=== PATIENT | female | born 1940 | race Caucasian/White ===

== ENCOUNTER 2016-11-02 12:38 | Outpatient (CLI) | payer OTHER ==
--- NOTE | 2016-11-04 07:29 | MAMMO ---
EXAM: Digital screening mammogram HISTORY: Screening mammogram COMPARISON: Mammogram 10/29/2015 and 10/04/2014 FINDINGS: Bilateral CC and MLO views of the breasts were performed digitally and demonstrate fatty breast density (up to 25%). There is no abnormal nodule or calcification. There is no significant i nterval change. IMPRESSION: No new or suspicious nodule or calcification RECOMMENDATION: Annual screening mammogram BIRADS category 1: Negative
== END 2016-11-02 12:39 | disposition home or self-care (01) ==
LOC: RAD 12:38
PROVIDERS: ATTEND Family Medicine
DX: Z12.31 Encounter for screening mammogram for malignant neoplasm of breast (principal)

== ENCOUNTER 2017-10-27 10:51 | Outpatient (CLI) | payer OTHER ==
--- NOTE | 2017-10-27 11:21 | DI ---
EXAM: Two views of the chest. History: Chest pain, bronchiectasis. Comparison: Chest radiograph 06/07/2009 Findings: Heart is enlarged. Prominent contour of the ascending aorta. Bilateral interstitial thic kening much more noticeable compared to the prior study and most noticeable in the right upper lung. No appreciable pleural fluid and no pneumothorax. Atherosclerotic vascular calcifications. No acut e osseous abnormalities. Impression: 1. Bilateral interstitial thickening much more noticeable compared to the prior study could represen t edema, interstitial pneumonitis or fibrosis. Recommend further evaluation with high-resolution ches t CT. 2. Cardiomegaly.
== END 2017-10-27 10:52 | disposition home or self-care (01) ==
LOC: RAD 10:51
PROVIDERS: ATTEND Family Medicine
DX: E03.9 Hypothyroidism, unspecified (principal); E78.2 Mixed hyperlipidemia; E53.8 Deficiency of other specified B group vitamins; J32.1 Chronic frontal sinusitis; K21.9 Gastro-esophageal reflux disease without esophagitis; J47.9 Bronchiectasis, uncomplicated; J30.9 Allergic rhinitis, unspecified; R03.0 Elevated blood-pressure reading, without diagnosis of hypertension

== ENCOUNTER 2017-10-28 09:56 | Outpatient (CLI) | payer OTHER ==
--- NOTE | 2017-10-28 11:28 | CT ---
Exam: CT chest without intravenous contrast. Comparison: CT PE protocol performed 05/11/2008. Chest x-ray performed 10/27/2017. Reason for exam: Respiratory failure. FINDINGS: Image interpretation is limited by the lack of intravenous contrast administration. Parenchymal changes are seen consistent with chronic lung disease. There is airway thickening with b ronchiectasis and patchy airspace opacities seen throughout both lungs. 8 mm nodule is seen in the left lower lobe that was not seen on the previous exam. There are prominent appearing mediastinal lymph nodes measuring up to 1.8 x 1.1 cm. No suspicious cherelle earing osteoblastic or osteolytic lesions. The heart is prominent in size. The aorta appears normal in course and caliber with atherosclerotic disease. The gallbladder has been removed. Impression: 1. Parenchymal changes consistent with chronic lung disease with patchy airspace opacities bilaterall y likely atelectasis/pneumonia. 2. Bronchiectasis with airway thickening likely representing airway infection. 3. 8 mm nodule in the left lower lobe was not seen on the previous exam. This finding is likely inf lammatory/infectious although neoplasia cannot be ruled out. 3-month follow-up is recommended to doc ument resolution/stability. 4. Prominent appearing mediastinal lymph nodes are likely reactive. Follow-up imaging is recommende d to document resolution.
== END 2017-10-28 09:57 | disposition home or self-care (01) ==
LOC: RAD 09:56
PROVIDERS: ATTEND Family Medicine
DX: J96.00 Acute respiratory failure, unspecified whether with hypoxia or hypercapnia (principal); R93.8 Abnormal findings on diagnostic imaging of other specified body structures

== ENCOUNTER 2017-11-02 11:55 | Inpatient (IN) | payer OTHER ==
[2017-11-02] MEDS ORDERED: PHENERGAN WITH CODEINE 6.25/10 MG/5 ML PO PRN (12:25)
[2017-11-02] MEDS ORDERED: VISTARIL INJ IM PRN (12:25)
[2017-11-02] MEDS ORDERED: MORPHINE 4 MG/ML VIAL IVP PRN (12:25)
[2017-11-02] MEDS ORDERED: NITROSTAT SL PRN (12:25)
[2017-11-02] MEDS ORDERED: ATROPINE SULFATE PFS IVP PRN (12:25)
[2017-11-02 12:39] VITALS: BMI 36.5
--- NOTE | 2017-11-02 13:29 | DI ---
EXAM: Chest two view, frontal and lateral views. HISTORY: Cough. COMPARISON: 10/28/2017. FINDINGS: Heart is enlarged. Peribronchial thickening noted with increased interstitial markings in both lungs. Mild right upper lung and left basilar consolidation could be present. No pleural effu royer or pneumothorax identified. No acute osseous abnormalities seen. Clips noted in the upper abdo men. IMPRESSION: Stable chronic interstitial changes with possible superimposed pneumonia.
[2017-11-02] MEDS: SOLU-CORTEF 250 MG IVP SCH ×2 (13:52→21:25)
[2017-11-02] MEDS: ZITHROMAX PO SCH (13:52)
[2017-11-02] MEDS: ROCEPHIN 1 GM in SODIUM CHLORIDE 50 ML IV SCH (13:52)
[2017-11-02] MEDS: TESSALON PERLES PO SCH ×3 (13:52→20:25)
[2017-11-02] MEDS: XOPENEX 1.25 MG NEB SCH ×2 (17:00→23:25)
[2017-11-02] MEDS: PULMICORT 0.5 MG/2 ML NEB SCH (17:00)
[2017-11-02] MEDS: REGLAN PO SCH (20:24)
[2017-11-02] MEDS: TENORMIN PO SCH (20:26)
[2017-11-02] MEDS ORDERED: TENORMIN PO SCH (21:00)
[2017-11-03] MEDS: SOLU-CORTEF 250 MG IVP SCH ×3 (04:58→20:36)
[2017-11-03] MEDS: PULMICORT 0.5 MG/2 ML NEB SCH ×2 (05:45→16:56)
[2017-11-03] MEDS: XOPENEX 1.25 MG NEB SCH ×4 (05:45→22:46)
[2017-11-03] MEDS: SYNTHROID PO SCH (06:13)
[2017-11-03] MEDS ORDERED: ASPIRIN EC PO SCH (08:00)
[2017-11-03] MEDS: TESSALON PERLES PO SCH ×3 (08:32→20:36)
[2017-11-03] MEDS: ROCEPHIN 1 GM in SODIUM CHLORIDE 50 ML IV SCH (08:32)
[2017-11-03] MEDS: ZITHROMAX PO SCH (08:32)
[2017-11-03] MEDS: LIPITOR PO SCH (08:32)
[2017-11-03] MEDS: TENORMIN PO SCH ×2 (08:32→20:36)
[2017-11-03] MEDS: CELEXA PO SCH (08:32)
[2017-11-03] MEDS: SINGULAIR PO SCH (08:32)
[2017-11-03] MEDS: ASPIRIN EC PO SCH (08:33)
[2017-11-03] MEDS ORDERED: NON-FORMULARY MEDICATION (Citalopram Hydrobromide [Celexa] 20 MG) PO SCH (09:00)
[2017-11-03] MEDS ORDERED: NON-FORMULARY MEDICATION (Levothyroxine Sodium [Tirosint] 75 MCG) PO SCH (09:00)
--- NOTE | 2017-11-03 09:33 | PCM.PROG ---
Attending Provider: ATTENDING PROVIDER: Dr. JACQUIE WRAY DATE OF SERVICE: 11/03/17 SUBJECTIVE: This 76 year old WHITE/ F was hospitalized 11/02/17 with pneumonia. The patient's cough is somewhat better. She is afebrile. Appetite normal. REVIEW OF SYSTEMS: CONSTITUTIONAL: No night sweats. No fatigue, malaise, lethargy. No fever or chills. HEENT: Eyes: No visual changes. No eye pain. No eye discharge. ENT: No runny nose. No epistaxis. No sinus pain. No odynophagia. No congestion. RESPIRATORY: Mild cough and congestion. No hemoptysis. No shortness of breath. CARDIOVASCULAR: No angina symptoms. No CHF symptoms. No atypical chest pain for CAD. No palpitations. No orthopnea.. GASTROINTESTINAL: No abdominal pain. No nausea or vomiting. No diarrhea or constipation. No hematemesis. No hematochezia. GENITOURINARY: No urgency. No frequency. No dysuria. No hematuria. No obstructive symptoms. No discharge. No pain. No significant abnormal bleeding. MUSCULOSKELETAL: No musculoskeletal pain; no joint swelling. NEUROLOGICAL: Awake, alert, oriented to time, place and person. No headache. No neck pain. No syncope. No seizures. No dizziness. PSYCHIATRIC: Not anxious. No depression. No suicidal thoughts. No homicidal thoughts. SKIN: No rash. No lesions. No wounds. ENDOCRINE: No unexplained weight loss. No weight gain. HEMATOLOGIC/LYMPHATIC: No anemia. No purpura. No petechiae. No prolonged or excessive bleeding. No palpable lymph nodes. PHYSICAL EXAMINATION: GENERAL: The patient is awake, alert and oriented, sitting in the chair in no distress. VITAL SIGNS: Temperature 97.7 F, Pulse 66, Respiratory Rate 16, BP 128/70, Pulse Ox 97% HEENT: Head normocephalic, atraumatic. Eyes: Extraocular muscles are intact. Pupils are equal, round and reactive to light and accommodation. Ears: No lesions. Nose appeared normal. Throat: No exudate or erythema. NECK: Supple. No JVD, no carotid bruit. No lymphadenopathy or thyromegaly. LUNGS: Dry creps both bases, good air entry. Percussion note normal. Chest symmetrical. HEART: S1, S2, no S3. No murmurs. No cyanosis or clubbing. No ascites. Pulses: Dorsalis pedis and posterior tibial pulses +1 to +2 both sides. ABDOMEN: Soft. Non-tender. Bowel sounds active. No CVA tenderness. No mass felt. EXTREMITIES: No edema. Full range of motion of all extremities, equal. NEUROLOGIC: No focal deficit. Cranial nerves II through XII are grossly intact. No headache, no double vision or headache. SKIN: Warm and dry. Intact. Turgor-normal. LYMPHATIC: No palpable lymph nodes/no lymphedema. MUSCULOSKELETAL: Normal joints with no swelling. Muscle tone is normal. LAB REVIEW: 11/03/17 04:30 11/03/17 04:30 11/03/17 04:30: Sodium 140, Potassium 4.2, Chloride 104, Carbon Dioxide 26, Anion Gap 14.2, BUN 11, Creatinine 0.78, Estimated GFR (MDRD) 72.00, BUN/ Creatinine Ratio 14.10, Glucose 135 H, Calcium 9.3, Total Bilirubin 0.4, AST 8 L , ALT 9 L, Alkaline Phosphatase 132, Total Protein 6.8, Albumin 3.1 L, Globulin 3.7, Albumin/Globulin Ratio 0.84 11/03/17 04:30: WBC 12.23 H, RBC 4.22, Hgb 12.8, Hct 38.8, MCV 91.9, MCH 30.3, MCHC 33.0, RDW Coeff of Karina 12.9, Plt Count 175, Immature Gran % (Auto) 0.6, Neut % (Auto) 87.3, Lymph % (Auto) 8.7 L, [place] % (Auto) 2.3, Eos % (Auto) 0.7, Baso % (Auto) 0.4, Immature Gran # (Auto) 0.1, Neut # (Auto) 10.7 H, Lymph # ( Auto) 1.1, [place] # (Auto) 0.3 L, Eos # (Auto) 0.1, Baso # (Auto) 0.1 11/02/17 20:19: Total Creatine Kinase 60, Troponin I < 0.0100 11/02/17 18:45: Urine Color Yellow, Urine Clarity Clear, Urine pH 6.0, Ur Specific [place] 1.010, Urine Protein Negative, Urine Glucose (UA) Negative, Urine Ketones Trace, Urine Blood Trace-intact, Urine Nitrite Negative, Urine Bilirubin Negative, Urine Urobilinogen 0.2, Ur Leukocyte Esterase Negative, Urine Microscopic RBC 0-2, Ur Squamous Epith Cells 2-5, Ur Renal Epithelial Cell 0-2 11/02/17 12:45: Sodium 138, Potassium 3.9, Chloride 103, Carbon Dioxide 25, Anion Gap 13.9, BUN 8, Creatinine 0.81, Estimated GFR (MDRD) 69.00, BUN/ Creatinine Ratio 9.87, Glucose 98, Calcium 9.5, Total Bilirubin 0.4, AST 10 L, ALT 11 L, Alkaline Phosphatase 144 H, Total Creatine Kinase 68, Troponin I < 0.0100, Total Protein 7.3, Albumin 3.4, Globulin 3.9, Albumin/Globulin Ratio 0.87, TSH 1.486, Free T4 1.14 11/02/17 12:45: WBC 15.64 H, RBC 4.44, Hgb 13.7, Hct 40.8, MCV 91.9, MCH 30.9, MCHC 33.6, RDW Coeff of Karina 12.9, Plt Count 174, Immature Gran % (Auto) 0.5, Neut % (Auto) 59.8, Lymph % (Auto) 8.0 L, [place] % (Auto) 5.1, Eos % (Auto) 26.0 H , Baso % (Auto) 0.6, Immature Gran # (Auto) 0.1, Neut # (Auto) 9.4 H, Lymph # ( Auto) 1.3, [place] # (Auto) 0.8, Eos # (Auto) 4.1 H, Baso # (Auto) 0.1 11/02/17 12:45: B-Natriuretic Peptide 35 11/02/17 12:25: Puncture Site Lrad, O2 Saturation 91.0 L, ABG pH 7.420, ABG pCO2 44.2, ABG pO2 61.0 L, ABG HCO3 28.7 H, ABG Total CO2 30 H, ABG Base Excess 4 H, Pj Test +, FiO2 % 21.0 ASSESSMENT: 1. Bilateral patchy pneumonia/bronchiectasis 2. Chronic lung disease 3. Hypertension PLAN: 1. Continue antibiotic Rocephin, Zithromax, steroids and nebs 2. Literature for plantar fascitis given 3. Hypothyroidism Plan and coordination of the patient's care discussed in the presence of Assistant Federal Public Defender and nurse. CONDITION: Stable SCRIBED BY: DANISHA GREEN Cream Ripener scribed while in presence of service performed by Dr. JACQUIE WRAY on 11/03/17 ([id number])
[2017-11-03] MEDS: ATIVAN PO PRN (19:07)
[2017-11-03] MEDS: REGLAN PO SCH (20:36)
[2017-11-04] MEDS: PULMICORT 0.5 MG/2 ML NEB SCH ×2 (04:48→17:19)
[2017-11-04] MEDS: XOPENEX 1.25 MG NEB SCH ×4 (04:48→22:07)
[2017-11-04] MEDS: SOLU-CORTEF 250 MG IVP SCH ×2 (05:06→20:50)
[2017-11-04] MEDS: SYNTHROID PO SCH (05:38)
[2017-11-04] MEDS: ZITHROMAX PO SCH (09:12)
[2017-11-04] MEDS: ROCEPHIN 1 GM in SODIUM CHLORIDE 50 ML IV SCH (09:12)
[2017-11-04] MEDS: TESSALON PERLES PO SCH ×3 (09:12→20:52)
[2017-11-04] MEDS: LIPITOR PO SCH (09:13)
[2017-11-04] MEDS: CELEXA PO SCH (09:13)
[2017-11-04] MEDS: SINGULAIR PO SCH (09:13)
[2017-11-04] MEDS: ASPIRIN EC PO SCH (09:13)
[2017-11-04] MEDS: TENORMIN PO SCH ×2 (09:13→20:53)
--- NOTE | 2017-11-04 09:34 | PCM.PROG ---
Attending Provider: ATTENDING PROVIDER: Dr. JACQUIE WRAY This patient is seen with Lia Da Silva, Nurse Practitioner. DATE OF SERVICE: 11/04/17 SUBJECTIVE: This 76 year old WHITE/ F was hospitalized 11/02/17. The patient is sitting up in chair, alert. She still does not have much appetite. She is still wearing 02. Shortness of breath with exertion. Will attempt to decrease steroids today. She does not normally wear 02. REVIEW OF SYSTEMS: CONSTITUTIONAL: Positive for weakness. No night sweats. No malaise, lethargy. No fever or chills. HEENT: Eyes: No visual changes. No eye pain. No eye discharge. ENT: No runny nose. No epistaxis. No sinus pain. No odynophagia. No congestion. RESPIRATORY: Cough. No hemoptysis. No shortness of breath. CARDIOVASCULAR: No angina symptoms. No CHF symptoms. No atypical chest pain for CAD. No palpitations. No orthopnea.. GASTROINTESTINAL: No abdominal pain. No nausea or vomiting. No diarrhea or constipation. No hematemesis. No hematochezia. GENITOURINARY: No urgency. No frequency. No dysuria. No hematuria. No obstructive symptoms. No discharge. No pain. No significant abnormal bleeding. MUSCULOSKELETAL: No musculoskeletal pain; no joint swelling. NEUROLOGICAL: Awake, alert, oriented to time, place and person. No headache. No neck pain. No syncope. No seizures. No dizziness. PSYCHIATRIC: Not anxious. No depression. No suicidal thoughts. No homicidal thoughts. SKIN: No rash. No lesions. No wounds. ENDOCRINE: No unexplained weight loss. No weight gain. HEMATOLOGIC/LYMPHATIC: No anemia. No purpura. No petechiae. No prolonged or excessive bleeding. No palpable lymph nodes. PHYSICAL EXAMINATION: GENERAL: The patient is awake, alert and oriented, sitting in chair in no distress. VITAL SIGNS: Temperature 98.2 F, Pulse 74, Respiratory Rate 20, BP 121/77, Pulse Ox 96% HEENT: Head normocephalic, atraumatic. Eyes: Extraocular muscles are intact. Pupils are equal, round and reactive to light and accommodation. Ears: No lesions. Nose appeared normal. Throat: No exudate or erythema. NECK: Supple. No JVD, no carotid bruit. No lymphadenopathy or thyromegaly. LUNGS: Diminished breath sounds bilaterally with creps in the bilateral bases. Percussion note normal. Chest symmetrical. HEART: S1, S2, no S3. No murmurs. No cyanosis or clubbing. No ascites. Pulses: Dorsalis pedis and posterior tibial pulses +1 to +2 both sides. ABDOMEN: Soft. Non-tender. Bowel sounds active. No CVA tenderness. No mass felt. EXTREMITIES: No edema. Full range of motion of all extremities, equal. NEUROLOGIC: No focal deficit. Cranial nerves II through XII are grossly intact. No headache, no double vision or headache. SKIN: Not dry. Intact. Turgor-normal. LYMPHATIC: No palpable lymph nodes/no lymphedema. MUSCULOSKELETAL: Normal joints with no swelling. Muscle tone is normal. LAB REVIEW: 11/04/17 04:30 11/04/17 04:30 11/04/17 04:30: WBC 15.55 H, RBC 4.59, Hgb 13.9, Hct 42.4, MCV 92.4, MCH 30.3, MCHC 32.8, RDW Coeff of Karina 12.8, Plt Count 231 D, Immature Gran % (Auto) 0.5, Neut % (Auto) 86.7, Lymph % (Auto) 9.6 L, [place] % (Auto) 2.9, Eos % (Auto) 0.1, Baso % (Auto) 0.2, Immature Gran # (Auto) 0.1, Neut # (Auto) 13.5 H, Lymph # ( Auto) 1.5, [place] # (Auto) 0.5, Eos # (Auto) 0.0, Baso # (Auto) 0.0 11/04/17 04:30: Sodium 140, Potassium 3.8, Chloride 101, Carbon Dioxide 24, Anion Gap 18.8, BUN 13, Creatinine 0.91, Estimated GFR (MDRD) 60.00, BUN/ Creatinine Ratio 14.28, Glucose 123 H, Calcium 9.9, Total Bilirubin 0.3, AST 9 L , ALT 12, Alkaline Phosphatase 134, Total Protein 7.5, Albumin 3.4, Globulin 4.1 , Albumin/Globulin Ratio 0.83 ASSESSMENT: 1. Bilateral patchy pneumonia/bronchiectasis 2. Chronic lung disease 3. Hypertension PLAN: 1. Decrease Solu-Cortef q.12hr 2. Echocardiogram Plan and coordination of the patient's care discussed in the presence of Molecular Biology Scientist and nurse. CONDITION: Stable SCRIBED BY: DANISHA GREEN Seed Cleaner scribed while in presence of service performed by Dr. Wray/Lia Da Silva APRN on 11/04/17 ([id number])
[2017-11-04] MEDS: REGLAN PO SCH (20:53)
[2017-11-05] MEDS: XOPENEX 1.25 MG NEB SCH ×4 (04:46→23:35)
[2017-11-05] MEDS: PULMICORT 0.5 MG/2 ML NEB SCH ×2 (04:46→18:18)
[2017-11-05] MEDS: PRILOSEC PO SCH (06:07)
[2017-11-05] MEDS: SYNTHROID PO SCH (06:07)
[2017-11-05] MEDS: ASPIRIN EC PO SCH (08:47)
[2017-11-05] MEDS: ROCEPHIN 1 GM in SODIUM CHLORIDE 50 ML IV SCH (08:47)
[2017-11-05] MEDS: SINGULAIR PO SCH (08:47)
[2017-11-05] MEDS: LIPITOR PO SCH (08:47)
[2017-11-05] MEDS: TENORMIN PO SCH ×2 (08:47→20:30)
[2017-11-05] MEDS: TESSALON PERLES PO SCH ×3 (08:47→20:30)
[2017-11-05] MEDS: CELEXA PO SCH (08:47)
[2017-11-05] MEDS: SOLU-CORTEF 250 MG IVP SCH (08:48)
--- NOTE | 2017-11-05 14:05 | DI ---
EXAM: Chest two view, frontal and lateral views. HISTORY: Cough. Possible pneumonia. Abnormal chest radiograph follow-up. COMPARISON: 11/02/2017, 10/28/2017. FINDINGS: Heart is enlarged. There is no vascular congestion. Increased interstitial markings seen throughout both lungs with peribronchial thickening. The colon send opacities in the right upper an d left lower lungs again noted. No pleural effusion or pneumothorax identified. Degenerative change s in the spine. Clips noted in the abdomen. IMPRESSION: Stable appearance of the chest most likely representing interstitial fibrosis..
[2017-11-05] MEDS: ATIVAN PO PRN (19:44)
[2017-11-05] MEDS: REGLAN PO SCH (20:30)
[2017-11-06] MEDS: PULMICORT 0.5 MG/2 ML NEB SCH ×2 (04:55→17:00)
[2017-11-06] MEDS: XOPENEX 1.25 MG NEB SCH ×4 (04:55→23:44)
[2017-11-06] MEDS: PRILOSEC PO SCH (05:37)
[2017-11-06] MEDS: SYNTHROID PO SCH (05:38)
[2017-11-06] MEDS: SINGULAIR PO SCH (08:12)
[2017-11-06] MEDS: LIPITOR PO SCH (08:12)
[2017-11-06] MEDS: ASPIRIN EC PO SCH (08:12)
[2017-11-06] MEDS: PREDNISONE PO SCH (08:12)
[2017-11-06] MEDS: TENORMIN PO SCH ×2 (08:12→20:19)
[2017-11-06] MEDS: TESSALON PERLES PO SCH ×3 (08:13→20:20)
[2017-11-06] MEDS: CELEXA PO SCH (08:13)
[2017-11-06] MEDS: ROCEPHIN 1 GM in SODIUM CHLORIDE 50 ML IV SCH (08:13)
[2017-11-06] MEDS: TYLENOL PO PRN (20:20)
[2017-11-06] MEDS: REGLAN PO SCH (20:20)
[2017-11-06] MEDS: ATIVAN PO PRN (20:20)
[2017-11-07] MEDS: PULMICORT 0.5 MG/2 ML NEB SCH ×2 (05:00→16:50)
[2017-11-07] MEDS: XOPENEX 1.25 MG NEB SCH ×4 (05:00→23:50)
[2017-11-07] MEDS: SYNTHROID PO SCH (05:46)
[2017-11-07] MEDS: PRILOSEC PO SCH (05:46)
[2017-11-07] MEDS: TENORMIN PO SCH ×2 (08:22→20:27)
[2017-11-07] MEDS: LIPITOR PO SCH (08:22)
[2017-11-07] MEDS: SINGULAIR PO SCH (08:22)
[2017-11-07] MEDS: TESSALON PERLES PO SCH ×3 (08:22→20:28)
[2017-11-07] MEDS: CELEXA PO SCH (08:22)
[2017-11-07] MEDS: ASPIRIN EC PO SCH (08:22)
[2017-11-07] MEDS: PREDNISONE PO SCH (08:22)
[2017-11-07] MEDS: ROCEPHIN 1 GM in SODIUM CHLORIDE 50 ML IV SCH (08:22)
[2017-11-07] MEDS: TYLENOL PO PRN ×2 (09:51→20:28)
[2017-11-07] MEDS: REGLAN PO SCH (20:27)
[2017-11-07] MEDS: OMNICEF PO SCH (20:28)
[2017-11-07] MEDS: ATIVAN PO PRN (20:28)
[2017-11-08] MEDS: PULMICORT 0.5 MG/2 ML NEB SCH ×2 (05:20→16:54)
[2017-11-08] MEDS: XOPENEX 1.25 MG NEB SCH ×4 (05:20→23:45)
[2017-11-08] MEDS: SYNTHROID PO SCH (05:49)
[2017-11-08] MEDS: PRILOSEC PO SCH (05:49)
[2017-11-08] MEDS: OMNICEF PO SCH ×2 (08:56→20:47)
[2017-11-08] MEDS: TESSALON PERLES PO SCH ×3 (08:56→20:47)
[2017-11-08] MEDS: SINGULAIR PO SCH (08:57)
[2017-11-08] MEDS: TENORMIN PO SCH ×2 (08:57→20:47)
[2017-11-08] MEDS: CELEXA PO SCH (08:57)
[2017-11-08] MEDS: LIPITOR PO SCH (08:57)
[2017-11-08] MEDS: ASPIRIN EC PO SCH (08:57)
[2017-11-08] MEDS: PREDNISONE PO SCH (08:57)
[2017-11-08] MEDS: TYLENOL PO PRN (15:26)
[2017-11-08] MEDS: REGLAN PO SCH (20:47)
[2017-11-08] MEDS: ATIVAN PO PRN (21:08)
[2017-11-09] MEDS: PULMICORT 0.5 MG/2 ML NEB SCH (05:05)
[2017-11-09] MEDS: XOPENEX 1.25 MG NEB SCH ×2 (05:05→11:14)
[2017-11-09] MEDS: PRILOSEC PO SCH (05:36)
[2017-11-09] MEDS: SYNTHROID PO SCH (05:36)
[2017-11-09] MEDS: ASPIRIN EC PO SCH (08:42)
[2017-11-09] MEDS: LIPITOR PO SCH (08:42)
[2017-11-09] MEDS: TENORMIN PO SCH (08:42)
[2017-11-09] MEDS: CELEXA PO SCH (08:42)
[2017-11-09] MEDS: TESSALON PERLES PO SCH (08:43)
[2017-11-09] MEDS: OMNICEF PO SCH (08:43)
[2017-11-09] MEDS: PREDNISONE PO SCH (08:43)
[2017-11-09] MEDS: SINGULAIR PO SCH (08:43)
--- NOTE | 2017-11-09 09:57 | PCM.PROG ---
Attending Provider: ATTENDING PROVIDER: Dr. JACQUIE WRAY This patient is seen with Lia Da Silva, Nurse Practitioner. DATE OF SERVICE: 11/09/17 SUBJECTIVE: This 76 year old WHITE/ F was hospitalized 11/02/17. The patient is sitting in chair, alert. She has been up walking. without shortness of breath. She passed three step 02 test yesterday. She is eating well and is ready to go home. REVIEW OF SYSTEMS: CONSTITUTIONAL: No night sweats. No fatigue, malaise, lethargy. No fever or chills. HEENT: Eyes: No visual changes. No eye pain. No eye discharge. ENT: No runny nose. No epistaxis. No sinus pain. No odynophagia. No congestion. RESPIRATORY: Improving cough and congestion. No hemoptysis. No shortness of breath. CARDIOVASCULAR: No angina symptoms. No CHF symptoms. No atypical chest pain for CAD. No palpitations. No orthopnea.. GASTROINTESTINAL: No abdominal pain. No nausea or vomiting. No diarrhea or constipation. No hematemesis. No hematochezia. GENITOURINARY: No urgency. No frequency. No dysuria. No hematuria. No obstructive symptoms. No discharge. No pain. No significant abnormal bleeding. MUSCULOSKELETAL: No musculoskeletal pain; no joint swelling. NEUROLOGICAL: Awake, alert, oriented to time, place and person. No headache. No neck pain. No syncope. No seizures. No dizziness. PSYCHIATRIC: Not anxious. No depression. No suicidal thoughts. No homicidal thoughts. SKIN: No rash. No lesions. No wounds. ENDOCRINE: No unexplained weight loss. No weight gain. HEMATOLOGIC/LYMPHATIC: No anemia. No purpura. No petechiae. No prolonged or excessive bleeding. No palpable lymph nodes. PHYSICAL EXAMINATION: GENERAL: The patient is awake, alert and oriented, lying/sitting in bed in no distress. VITAL SIGNS: Temperature 98.1 F, Pulse 75, Respiratory Rate 20, BP 125/74, Pulse Ox 94% HEENT: Head normocephalic, atraumatic. Eyes: Extraocular muscles are intact. Pupils are equal, round and reactive to light and accommodation. Ears: No lesions. Nose appeared normal. Throat: No exudate or erythema. NECK: Supple. No JVD, no carotid bruit. No lymphadenopathy or thyromegaly. LUNGS: Diminished breath sounds bilaterally. Clear to auscultation. Percussion note normal. Chest symmetrical. HEART: S1, S2, no S3. No murmurs. No cyanosis or clubbing. No ascites. Pulses: Dorsalis pedis and posterior tibial pulses +1 to +2 both sides. ABDOMEN: Soft. Non-tender. Bowel sounds active. No CVA tenderness. No mass felt. EXTREMITIES: No edema. Full range of motion of all extremities, equal. NEUROLOGIC: No focal deficit. Cranial nerves II through XII are grossly intact. No headache, no double vision or headache. SKIN: Not dry. Intact. Turgor-normal. LYMPHATIC: No palpable lymph nodes/no lymphedema. MUSCULOSKELETAL: Normal joints with no swelling. Muscle tone is normal. LAB REVIEW: 11/09/17 04:10 11/09/17 04:10 11/09/17 04:10: Sodium 140, Potassium 3.7, Chloride 99, Carbon Dioxide 31, Anion Gap 13.7, BUN 12, Creatinine 0.83, Estimated GFR (MDRD) 67.00, BUN/ Creatinine Ratio 14.45, Glucose 89, Calcium 9.7, Total Bilirubin 0.8, AST 12 L, ALT 14, Alkaline Phosphatase 127, Total Protein 7.3, Albumin 3.4, Globulin 3.9, Albumin/Globulin Ratio 0.87 11/09/17 04:10: WBC 9.75, RBC 4.55, Hgb 13.7, Hct 42.1, MCV 92.5, MCH 30.1, MCHC 32.5, RDW Coeff of Karina 12.6, Plt Count 214, Immature Gran % (Auto) 0.3, Neut % (Auto) 68.4, Lymph % (Auto) 22.4, [place] % (Auto) 6.2, Eos % (Auto) 2.4, Baso % (Auto) 0.3, Immature Gran # (Auto) 0.0, Neut # (Auto) 6.7, Lymph # (Auto ) 2.2, [place] # (Auto) 0.6, Eos # (Auto) 0.2, Baso # (Auto) 0.0 11/08/17 04:10: Triglycerides 70, Cholesterol 183, LDL Cholesterol, Calc 111, VLDL Cholesterol 14, HDL Cholesterol 58, Cholesterol/HDL Ratio 3.2 L ASSESSMENT: 1. Bilateral patchy pneumonia/bronchiectasis 2. Chronic lung disease 3. Hypertension PLAN: 1. Tessalon Perles 200 mg t.i.d. 2. Discharge home 3. To be seen in Dr. Wray's office next week for followup 4. Omnicef 300 mg b.i.d. for 7 days 5. Prednisone 20 mg daily for 3 days then 10 mg daily for four days Plan and coordination of the patient's care discussed in the presence of Bulk Sausage Casing Tier Off and nurse. CONDITION: Stable SCRIBED BY: Dimas RAM scribed while in presence of service performed by Dr. Wray/Lia Da Silva APRN on 11/09/17 ([id number])
[2017-11-09 10:32] VITALS: BP 111/70; TEMP 98.3
--- NOTE | 2017-11-09 11:32 | CM.DICTOOL ---
ADMISSION: 11/02/17 11:55 DISCHARGE: NOVEMBER 09, 2017 DATE OF SERVICE: 11/09/17 FINAL DIAGNOSIS BILATERAL PATCHY PNEUMONITIS (PER CT 10/28/) ACUTE BRONCHITIS NODULE, LLL [address] BRONCHIECTASIS COPD HYPERTENSION HYPOTHYROID DYSLIPIDEMIA GERD OBESITY DEPRESSION CHOLECYSTECTOMY HYSTERECTOMY BILE DUCT SURGERY LAST VITALS Temp Pulse Resp BP Pulse Ox 98.1 F 75 20 125/74 94 L 11/09/17 05:15 11/09/17 05:15 11/09/17 05:15 11/09/17 05:15 11/09/17 05:15 TAKE THESE MEDICATIONS Aspirin (Aspirin Ec) 81 mg PO DAILYWM [facility] Last Admin: 11/09/17 08:42 Dose: 81 mg Atenolol (Tenormin) 25 mg PO BID [facility] Last Admin: 11/09/17 08:42 Dose: 25 mg Atorvastatin Calcium (Lipitor) 10 mg PO DAILY [facility] Last Admin: 11/09/17 08:42 Dose: 10 mg Benzonatate (Tessalon Perles) 200 mg PO TID [facility] Last Admin: 11/09/17 08:43 Dose: 200 mg Cefdinir (Omnicef) 300 mg PO Q12HR [facility] Last Admin: 11/09/17 08:43 Dose: 300 mg Citalopram Hydrobromide (Celexa) 20 mg PO DAILY [facility] Last Admin: 11/09/17 08:42 Dose: 20 mg Levothyroxine Sodium (Synthroid) 75 mcg PO QDAC [facility] Last Admin: 11/09/17 05:36 Dose: 75 mcg Lorazepam (Ativan) 1 mg PO TID PRN PRN Reason: Anxiety Last Admin: 11/08/17 21:08 Dose: 1 mg Metoclopramide HCl (Reglan) 10 mg PO BEDTIME [facility] Last Admin: 11/08/17 20:47 Dose: 10 mg Montelukast Sodium (Singulair) 10 mg PO DAILY [facility] Last Admin: 11/09/17 08:43 Dose: 10 mg Omeprazole (Prilosec) 20 mg PO QDAC [facility] Last Admin: 11/09/17 05:36 Dose: 20 mg Prednisone (Prednisone) 20 mg PO DAILYWM [facility] Last Admin: 11/09/17 08:43 Dose: 20 mg Vitamin B Complex 1 tab PO DAILY Last Admin: MEDICATION CHANGES Stop Phenergan tablets ALLERGIES No Known Allergies Allergy (Unverified 11/21/14 14:29) NEW PRESCRIPTIONS: OMNICEF 300 MG Q 12 HOURS FOR 7 DAYS PREDNISONE 20 MG DAILY FOR 3 DAYS, THEN 10 MG DAILY FOR 4 DAYS TESSALON PERLES 200 MG TID SMOKING: NOT APPLICABLE DISEASE SPECIFIC EDUCATION: PNEUMONIA BRONCHITIS USE OF STEROIDS ACTIVITY APPOINTMENT LAB REVIEW: 11/09/17 04:10 11/09/17 04:10 11/09/17 04:10: Sodium 140, Potassium 3.7, Chloride 99, Carbon Dioxide 31, Anion Gap 13.7, BUN 12, Creatinine 0.83, Estimated GFR (MDRD) 67.00, BUN/ Creatinine Ratio 14.45, Glucose 89, Calcium 9.7, Total Bilirubin 0.8, AST 12 L, ALT 14, Alkaline Phosphatase 127, Total Protein 7.3, Albumin 3.4, Globulin 3.9, Albumin/Globulin Ratio 0.87 11/09/17 04:10: WBC 9.75, RBC 4.55, Hgb 13.7, Hct 42.1, MCV 92.5, MCH 30.1, MCHC 32.5, RDW Coeff of Karina 12.6, Plt Count 214, Immature Gran % (Auto) 0.3, Neut % (Auto) 68.4, Lymph % (Auto) 22.4, [place] % (Auto) 6.2, Eos % (Auto) 2.4, Baso % (Auto) 0.3, Immature Gran # (Auto) 0.0, Neut # (Auto) 6.7, Lymph # (Auto ) 2.2, [place] # (Auto) 0.6, Eos # (Auto) 0.2, Baso # (Auto) 0.0 PLAN: DISCHARGE HOME DIET: HEART HEALTHY ACTIVITY: RESUME TOLERATED AVOID OUTSIDE WORK OR ACTIVITIES THIS WEEK USE NEBULIZER (HAS AT HOME WITH MEDICATIONS) AT LEAST 3 TIMES DAILY UNTIL SEEN IN OFFICE NEXT WEEK AN APPOINTMENT IS SCHEDULED WITH SANA POST APRN ON October AT 9 AM YOU ARE SCHEDULED FOR A MAMMOGRAM ON October AT 9:45 AT [facility]. PLEASE REGISTER AT PATIENT REGISTRATION MRS. PARKER IS ALERT AND ORIENTED X 3. SHE IS AMBULATORY WITHOUT USE OF ASSISTIVE DEVICE. SHE IS INDEPENDENT WITH ACTIVITIES OF DAILY LIVING. NO SHORTNESS OF AIR IS NOTED. COUGH IS NON-PRODUCTIVE. NO ABDOMINAL PAIN OR NAUSEA. MEAL INTAKES GOOD AT 60-100%. SKIN IS INTACT AND FREE OF DECUBITUS ULCERS, RASHES OR IRRITATION. JACQUIE WRAY MD SANA POST APRN
--- NOTE | 2017-11-10 12:40 | PN ---
DATE OF SERVICE: 11/08/17 SUBJECTIVE: 76 year old white female hospitalized with pneumonia. The patient has bronchiectasis. Condition is improving and she says that she is been coughing less. Appetite is better and strength is better. REVIEW OF SYSTEMS: CONSTITUTIONAL: No night sweats. No fatigue, malaise, lethargy. No fever or chills. Improvement in feeling of fatigue. HEENT: Eyes: No visual changes. No eye pain. No eye discharge. ENT: No runny nose. No epistaxis. No sinus pain. No sore throat. No odynophagia. No congestion. RESPIRATORY: Mild cough, no congestion. No hemoptysis. No shortness of breath. CARDIOVASCULAR: No angina symptoms. No CHF symptoms. No atypical chest pain for CAD. No palpitations. No orthopnea. GASTROINTESTINAL: No abdominal pain. No nausea or vomiting. No diarrhea or constipation. No hematemesis. No hematochezia. Improvement in appetites. GENITOURINARY: No urgency. No frequency. No dysuria. No hematuria. No obstructive symptoms. No discharge. No pain. No significant abnormal bleeding. MUSCULOSKELETAL: No musculoskeletal pain; no joint swelling. NEUROLOGICAL: No headache. No neck pain. No syncope. No seizures. No dizziness. PSYCHIATRIC: Not anxious. No depression. No suicidal thoughts. No homicidal thoughts. SKIN: No rash. No lesions. No wounds. ENDOCRINE: No unexplained weight loss. No weight gain. HEMATOLOGIC/LYMPHATIC: No anemia. No purpura. No petechiae. No prolonged or excessive bleeding. No palpable lymph nodes. PHYSICAL EXAMINATION: GENERAL: The patient is oriented to time, place and person VITAL SIGNS: Temperature 98, pulse 65, respiratory rate 16, blood pressure 145/ 80 and pulse ox 97%. HEENT: Head normocephalic, atraumatic. Eyes: Extraocular muscles are intact. Pupils are equal, round and reactive to light and accommodation. Ears: No lesions. Nose appeared normal. Throat: No exudate or erythema. NECK: Supple. No JVD, no carotid bruit. No lymphadenopathy or thyromegaly. LUNGS: Dry Creps bilaterally. Clear to auscultation. Percussion note normal. Chest symmetrical. HEART: S1, S2, no S3. No murmurs. No cyanosis or clubbing. No ascites. Pulses: Dorsalis pedis and posterior tibial pulses +1 to +2 both sides. ABDOMEN: Soft. Nontender. Bowel sounds active. No CVA tenderness. No mass felt. EXTREMITIES: No edema. Full range of motion of all extremities, equal. NEUROLOGIC: No focal deficit. Cranial nerves II through XII are grossly intact. No headache, no double vision or headache. SKIN: Not dry. Intact. Turgor - normal. LYMPHATIC: No palpable lymph nodes/no lymphedema. MUSCULOSKELETAL: Normal joints with no swelling. Muscle tone is normal. LABS: Chest x-ray showed pulmonary fibrosis done two days ago. Echo is waiting. ASSESSMENT: 1. Pneumonia seems to be resolving 2. Bronchiectasis with pulmonary fibrosis 3. Depression 4. Hypothyroidism 5. Dyslipidemia 6. Hypertension PLAN: 1. Continue antibiotics and steroids 2. Breathing treatment CONDITION: Stable. TIME SPENT: More than 30 minutes. Plan and coordination of the patient's care discussed in the presence of nurse. DHAVAL
--- NOTE | 2017-11-10 13:50 | PN ---
DATE OF SERVICE: 11/09/17 SUBJECTIVE: The patient was seen and examined with Nurse Practitioner. The patient's condition is stable. Her breathing capacity seems to have improved. She is coughing much less. Pneumonia by x-ray has resolved. Clinically she is a lot better. The patient will be discharged on antibiotics and steroids. CONDITION: Stable. TIME SPENT: More than 30 minutes. Plan and coordination of the patient's care discussed in the presence of nurse. DHAVAL
--- NOTE | 2017-11-10 13:51 | PN ---
11/02/17: Level 5 11/03/17: Intermediate 11/04/17: Intermediate 11/05/17: Intermediate 11/06/17: Intermediate 11/07/17: Intermediate 11/08/17: Intermediate 11/09/17: D as in discharge MTDD
--- NOTE | 2017-11-11 07:58 | ECHO2D ---
Date of Exam: 11/08/17 Ordering Physician: DR. JACQUIE WRAY Room #: 107 Reason for Echo: CARDIOMEGALY, HYPERTENSION M-Mode Normal Adult Results LV Dimensions Normal Adult Results AoV Opening excursions >1.6 >1.6 LVEDD-base- 3.5-5.8 3.3 Ao root dimensions 2.0-3.7 3.5 LVESD-base- 3.1-4.6 L. Atrium dimensions 1.9-3.8 3.9 Post. Wall thickness 0.8-1.1 1.2 IV septum (thickness) 0.7-1.2 1.3 Post. Wall excursion 0.72-1.3 NORMAL Septal motion NORMAL Systolic motion R. Ventricular cavity 1.5-2.0 NORMAL LVEF 60% 71% Paradoxical septal wall motion NORMAL 2-D : 2-D M Mode Echocardiogram was performed using apical four chamber and left parasternal long and short axis views. Mitral, tricuspid and aortic valves appear to be normal. Contractility of the left ventricle seems to be normal, so is the cavity size. Left atrial cavity size and aortic root appear to be normal. There is no pericardial effusion. There is no thrombus noted in the left ventricular or left aortic cavity. No mitral valve prolapse noted. M-MODE: MV: NORMAL AV: NORMAL TV: NORMAL PV: CHAMBER SIZE: NORMAL WALL MOTION: NORMAL PERICARDIUM: NORMAL INTERPRETATION: 1. BORDERLINE LEFT VENTRICULAR HYPERTROPHY 2. NORMAL LEFT VENTRICULAR CONTRACTILITY 3. NORMAL VALVES MTDD
--- NOTE | 2017-11-11 12:41 | DS ---
DATE OF SERVICE: 11/09/17 FINAL DIAGNOSIS: 1. Bilateral patchy pneumonitis (PER CT 10/28) 2. Acute bronchitis 3. Nodule, LLL 8mm per CT 4. Bronchiectasis 5. COPD 6. Hypertension 7. Hypothyroid 8. Dyslipidemia 9. GERD 10.Obesity 11.Depression 12.Cholecystectomy 13.Hysterectomy 14.Bile Duct surgery LAST VITAL: Temperature 98.1, pulse 75, respiratory rate 20, blood pressure 125/74 and pulse ox 94%. DISCHARGE INSTRUCTIONS: Discharge home. Use Nebulizer(has at home with medication) at least three times daily until seen in office next week. An Appointment is scheduled with Lia Da Silva APRN on November 16 at 9am. Also scheduled for Mammogram on November 18 at 9: 45 at [facility]. Please Pollock at Patient Registration. MEDICATIONS AT DISCHARGE: Aspirin 81mg PO daily Tenormin 25mg PO twice a day Lipitor 10mg PO daily Tessalon Perles 200mg PO three times a day Omnicef 300mg PO Q 12 hours Celexa 20mg PO daily Synthroid 75mcg PO QDAC Ativan 1mg PO three times a day PRN Reglan 10mg PO bedtime Singular 10mg PO daily Prilosec 20mg PO QDAC Prednisone 20mg PO daily Vitamin B Complex 1 tablet PO daily MEDICATION CHANGES: Stop Phenergan tablets ALLERGIES: No known allergies NEW PRESCRIPTIONS: Omnicef 300mg Q 12 hours for 7 days Prednisone 20mg daily for 3 days, Then 10mg daily for 3 days Tessalon Perles 200mg Three times a day DIET INSTRUCTIONS: Heart Healthy ACTIVITY: Resume as tolerated. Avoid outside work or activities this week. SMOKING: Not applicable DISEASE SPECIFIC EDUCATION: Pneumonia Bronchitis Use of steroids Activity Appointments HOSPITAL COURSE: This is a 76 year old white female who is a new/old patient to us. She has been seeing a physician in [place] for the past 5-6 years and had not seen us until the day of admission. She presented to our office had had cough and congestion for several days with low grade fever. She requested that she have a chest x- ray. She had been on a Z-dolly as an outpatient from her previous doctor and he refused to do anything else. She was running fever, she was weak and short of breath. She was admitted. Kidney function was slightly elevated and shows slight dehydration. She was started on Rocephin 1 gram IV daily along with IV normal saline at 75cc an hour. She was started on Xopenex NEB treatment every 6 hours scheduled along with Solu-Cortef 125mg IV Q 6 hours. Over the course of several days she did slowly improve. She required oxygen at 1-2 liters initially in order to keep her Sat greater than 90%. She does have a history of chronic lung disease. She is a nonsmoker but has been exposed to significant second hand smoke from her family as a child as well as her used to smoke and has just quit within the past 10 years. Chest x-ray along with chest CT showed some bilateral opacities representing pneumonia. She had a chest CT initially and a repeat was done on Wednesday which showed some improvement. Again her improvement was slowly likely due to her chronic lung disease. Today on day of discharge she is no longer wheezing. She still some diminished breath sounds especially at the bases. She was started on Omnicef 300mg twice a day yesterday along with Prednisone 20mg PO daily yesterday and has tolerated the transition to PO medication well. She did pass her three step oxygen test yesterday so she will not require any oxygen at home. For the past 24 hours she has been up and about walking around without the use of oxygen. Today on day of discharge O2 sat 94% on room air. Blood pressure is well controlled 125/74. She has been afebrile for the past 72 hours. Again repeat chest x-ray showed improvement in her pneumonia and seems to be resolving clinically she seems to be significantly improved. She reports that the Tessalon Perles have helped her with her cough. She will be given a prescription for those to take at home along with Omnicef continue 300mg twice a day for the next 7 days. Prednisone 20mg daily for three days and then 10mg daily times 4 days. We will followup with her in the office next week. She is instructed to stay inside out of the heat, in the cool and continue with increased rest and fluids. TIME SPENT: More than 60 minutes. MTDD
== END 2017-11-09 12:35 | disposition home or self-care (01) | DRG 194 ==
LOC: MEDSURG A 11:55
PROVIDERS: ADMIT Internal Medicine; ATTEND Internal Medicine
DX: J18.9 Pneumonia, unspecified organism (principal); J44.0 Chronic obstructive pulmonary disease with (acute) lower respiratory infection; J20.9 Acute bronchitis, unspecified; R06.02 Shortness of breath; R91.1 Solitary pulmonary nodule; J84.10 Pulmonary fibrosis, unspecified; I10 Essential (primary) hypertension; E03.9 Hypothyroidism, unspecified; E78.5 Hyperlipidemia, unspecified; K21.9 Gastro-esophageal reflux disease without esophagitis; E66.9 Obesity, unspecified; F32.9 Major depressive disorder, single episode, unspecified; Z77.22 Contact with and (suspected) exposure to environmental tobacco smoke (acute) (chronic); Z90.49 Acquired absence of other specified parts of digestive tract; Z79.899 Other long term (current) drug therapy
CPT/HCPCS: 36415; 80053; 80061; 81001; 82550; 82803; 83880; 84439; 84443; 84484; 85025; 93005; 93010; 94640; 94761

== ENCOUNTER 2017-11-18 09:21 | Outpatient (CLI) | payer OTHER | END 2017-11-18 09:22 | disposition home or self-care (01) | LOC: RAD 09:21 | PROVIDERS: ATTEND Family Medicine | DX: Z12.31 Encounter for screening mammogram for malignant neoplasm of breast (principal) | CPT/HCPCS: 77067 ==

== ENCOUNTER 2017-11-26 08:18 | Outpatient (CLI) ==
--- NOTE | 2017-11-26 11:46 | MAMMO ---
EXAM: Left digital diagnostic mammogram History: Left breast calcifications. Comparison: Bilateral mammogram 11/18/2017 Findings: Left breast density is fatty. Additional spot magnification views confirm the presence of clustered microcalcifications within the central left breast with possible associated soft tissue nod ule. Impression: Indeterminate left breast calcifications with possible associated nodule. Recommend fur ther evaluation with left breast ultrasound. BIRADS 0
--- NOTE | 2017-11-26 11:49 | US ---
EXAM: Left breast ultrasound. History: Left breast nodule and microcalcifications. Comparison: Left diagnostic mammogram 11/26/2017 Technique: Multiple sonographic images through the left breast were obtained. Color duplex Doppler was used to interrogate vascular flow. Findings: No masses, cysts or fluid collections identified. Impression: No sonographic abnormalities identified. The microcalcifications seen within the left br east on diagnostic mammogram; however, are suspicious for malignancy and recommend further evaluation with stereotactic guided breast biopsy BIRADS 4
== END 2017-11-26 08:19 | disposition home or self-care (01) ==
LOC: RAD 08:18
PROVIDERS: ATTEND Internal Medicine
DX: R92.8 Other abnormal and inconclusive findings on diagnostic imaging of breast (principal)

== ENCOUNTER 2018-03-10 12:56 | Outpatient (CLI) | payer OTHER ==
--- NOTE | 2018-03-10 14:09 | US ---
EXAM: Bilateral lower extremity venous Doppler duplex HISTORY: Concern for DVT with prior DVT. COMPARISON: Venous Doppler 12/08/2011 TECHNIQUE: Sonographic and Doppler evaluation of the bilateral lower extremity vessels from the comm on femoral through the anterior tibial veins were obtained. Color Doppler wave spectral analysis was performed. Augmentation and compression techniques were also performed. FINDINGS: No flow is noted in the right peroneal vein with only partial compression. There is spont aneous Doppler flow seen in the remaining bilateral lower extremity veins from the common femoral thr ough the posterior tibial veins. The anterior tibial veins are not visualized. Color Doppler wave spe ctral analysis is consistent with findings of peroneal thrombus. There is normal compression and augm entation throughout the lower extremity veins. There is no visualized reflux. Sonographic appearanc e of the soft tissues demonstrate a hypoechoic right Escobar's cyst measuring 4.9 x 1.6 x 2.0 cm. IMPRESSION: 1. Right peroneal thrombus. 2. Right Escobar's cyst. Critical results were called to Dr. Mejía at 2:04 p.m. same day as exam.
== END 2018-03-10 12:57 | disposition home or self-care (01) ==
LOC: RAD 12:56
PROVIDERS: ATTEND Internal Medicine
DX: Z86.718 Personal history of other venous thrombosis and embolism (principal); Z98.890 Other specified postprocedural states

== ENCOUNTER 2018-04-01 07:10 | Inpatient (IN) ==
[2018-04-01] MEDS ORDERED: SOLU-MEDROL 125 MG IVP STA (07:26)
[2018-04-01] MEDS ORDERED: DUONEB NEB STA ×2 (07:27→09:11)
--- NOTE | 2018-04-01 08:26 | DI ---
EXAM: Chest two view, frontal and lateral views. HISTORY: Shortness of breath. COMPARISON: 11/05/2017. FINDINGS: Left-sided chest port now present with tip projecting over the region of the superior vena cava. Cardiac silhouette is enlarged but stable. Right diaphragm is elevated. Peribronchial thick ening and reticulonodular opacities noted throughout both lungs which are unchanged. No new areas of consolidation, pleural effusion or pneumothorax identified. No acute osseous abnormalities seen. C lips seen in the right upper quadrant of the abdomen. IMPRESSION: 1. Chronic peribronchial thickening and reticulonodular opacities. No new pulmonary opacities. 2. Left-sided chest port placement.
--- NOTE | 2018-04-01 08:58 | ED.PDOC ---
General ED Provider: Dr. BRANDEN VALLE Chief Complaint: Shortness of Air Stated Complaint: short of air Time Seen by Physician: 07:20 (seen with barbara from respiratory dept) Mode of Arrival: Walk-In Information Source: Patient Exam Limitations: No limitations Primary Care Provider: JACQUIE WRAY Referred to ED by: Other (some subtle chest pain but pain FREE on arrival , no evidence of impending resp failure on arrival ) Nursing and Triage Documentation Reviewed and Agree: Yes Does patient meet sepsis criteria?: No System Inflammatory Response Syndrome: Not Applicable (pt is on home o2) Sepsis Protocol: For patient's 13 years and over: Temp is 96.8 and below OR 101 and greater Pulse >90 BPM Resp >20/minute Acutely Altered Mental Status Are patient's symptoms suggestive of a new infection, such as: -Pneumonia -Skin, Soft Tissue -Endocarditis -UTI -Bone, Joint Infection -Implantable Device -Acute Abdominal Infection -Wound Infection -Meningitis -Blood Stream Catheter Infection -Unknown Respiratory Complaint Exam - Respiratory Complaint/Exam Onset/Duration: 2 days Symptoms Are: Still present, Resolved Timing: Intermittent Initial Severity: Mild Current Severity: None Location: Nose, Throat, Chest Character: Reports: Dry cough Aggravating: Reports: None Alleviating: Reports: Spontaneous resolution Associated Signs and Symptoms: Denies: Rapid breathing, Dyspnea, Fever, Chills, Chest pain, Pleuritic chest pain, Wheezing, Hemoptysis, Dizziness, Calf pain, Calf swelling, Edema, URI, Nasal congestion, Hoarseness, Sinus discomfort, Vomiting, Sore throat, Weight loss, Decreased oral intake, Increased thirst, Increased appetite, Increased urination Related History: Reports: Similar episode History of Healthcare-Acquired Pneumonia: No Related Surgical History: Reports: None Pulmonary Embolism Risk Factors: None Cardiac Risk Factors: Reports: Elevated lipids, Hypertension Pseudomonas Risk Factors: Reports: Chronic Lung Disease Tuberculosis Risk Factors: Reports: Chronic Resp. Faliure Status Asthmaticus Risk Factors: Reports: None Home Oxygen Use: Yes Recent Stress Test: No Recent Echo/LV Function: No Current Antibiotic Use: No Current Asthma Medication Use: Yes Respiratory Distress: None Inadequate Respiratory Effort: No Dysphagia Present: No Stridor Present: No JVD Present: No Accessory Muscle Use: No Retractions: Not Present Diminished Breath Sounds: Yes Sinus Tenderness: None Grunting Respirations: No Kussmaul Respirations: No Differential Diagnoses: CHF, Pulmonary Edema, COPD Exacerbation, Pneumonia, Bronchitis, Lower Resp. Infection Quality Indicators For Pneumonia: Antibiotics in 6hr-admit, SpO2 assessed, Empiric Antibiotic Rx, Vital signs, Mental status assessed Non-Traumatic Chest Pain Syncope: EKG Performed Review of Systems - Review Of Systems Constitutional: Reports: Malaise Eyes: Reports: No symptoms Ears, Nose, Mouth, Throat: Reports: No symptoms Respiratory: Reports: Cough, Short of air Cardiac: Reports: Chest pain (described as tightness but pain free on arrival ) GI: Reports: No symptoms : Reports: No symptoms Musculoskeletal: Reports: No symptoms Skin: Reports: No symptoms Neurological: Reports: No symptoms Endocrine: Reports: No symptoms Hematologic/Lymphatic: Reports: No symptoms All Other Systems: Reviewed and Negative Past Medical History - Past Medical History Previously Healthy: Yes Endocrine: Reports: Hypothyroid, Dyslipidemia Cardiovascular: Reports: Hypertension Respiratory: Reports: COPD Hematological: Reports: None Gastrointestinal: Reports: None Genitourinary: Reports: None Neuro/Psych: Reports: None Musculoskeletal: Reports: None Cancer: Reports: None Last Menstrual Period: none - Surgical History General Surgical History: Reports: None - Family History Family History: Reports: None - Social History Smoking Status: Never smoker Hx Substance Use: No Alcohol Screening: None Physical Exam - Physical Exam Appearance: Well-appearing, No pain distress, Well-nourished Eyes: MARTIN, EOMI, Conjunctiva clear ENT: Ears normal, Nose normal, Oropharynx normal Respiratory: Rhonchi, Wheezes Cardiovascular: RRR, Pulses normal, No rub, No murmur GI/: Soft, Nontender, No masses, Bowel sounds normal, No Organomegaly Musculoskeletal: Normal strength, ROM intact, No edema, No calf tenderness Skin: Warm, Dry, Normal color Neurological: Sensation intact, Motor intact, Reflexes intact, Cranial nerves intact, Alert, Oriented Psychiatric: Affect appropriate, Mood appropriate Interpretation - Radiology Interpretation Radiology Interpretation By: Radiologist Radiology Results: No acute changes Exam Interpreted: CXR - Television Repairer Rate: Tachy Rhythm: Sinus Ectopy: None - EKG Interpretation Time of EKG #1: 07:30 Rate: Tachy (low voltage ) Rhythm: Sinus Ectopy: None Center Line: NL ST Segment: Normal Re-Evaluation - Re-Evaluation Time of Re-Evaluation: 08:00 Status: Improved Vital Signs Stable: Yes Pain Level: 0 Appearance: NAD Lungs: Clear Skin: Warm and Dry Neuro: Alert and Oriented X3 CV: RRR - Re-Evaluation Time of Re-Evaluation: 09:04 Status: Improved Vital Signs Stable: Yes Pain Level: 0 Appearance: NAD Skin: Warm and Dry Neuro: Alert and Oriented X3 CV: RRR Physician Notification - Case Discussed Physician Notified: pmd Time of Notification: 09:05 (admitt) Admit To: Inpatient Critical Care Note - Critical Care Note Total Time (mins): 0 Course - Course Hematology/Chemistry: 04/01/18 07:40 04/01/18 07:40 Orders, Labs, Meds: Lab Review 04/01/18 04/01/18 04/01/18 07:26 07:40 07:40 WBC 9.01 RBC 3.80 L Hgb 11.6 L Hct 35.8 L MCV 94.2 MCH 30.5 MCHC 32.4 RDW Coeff of Karina 13.1 Plt Count 214 Immature Gran % (Auto) 0.3 Neut % (Auto) 82.0 Lymph % (Auto) 7.3 L Wheeler % (Auto) 5.4 Eos % (Auto) 4.4 Baso % (Auto) 0.6 Immature Gran # (Auto) 0.0 Neut # (Auto) 7.4 H Lymph # (Auto) 0.7 Wheeler # (Auto) 0.5 Eos # (Auto) 0.4 Baso # (Auto) 0.1 Puncture Site R rad O2 Saturation 87.0 L ABG pH 7.467 H ABG pCO2 40.1 ABG pO2 50.0 L* ABG HCO3 29 H ABG Total CO2 30 H ABG Base Excess 5 H Pj Test + FiO2 % 21.0 Sodium 140.7 Potassium 4.00 Chloride 102.5 Carbon Dioxide 32.5 H Anion Gap 9.70 BUN 5.8 L Creatinine 0.75 Estimated GFR (MDRD) 75.00 BUN/Creatinine Ratio 7.73 Glucose 110.8 H Lactic Acid Calcium 9.22 Total Bilirubin 0.44 AST 23.8 ALT 10.9 Alkaline Phosphatase 111.1 Total Creatine Kinase 37.0 Troponin I < 0.012 NT-Pro-B Natriuret Pep Total Protein 7.06 Albumin 3.89 Globulin 3.17 Albumin/Globulin Ratio 1.22 04/01/18 04/01/18 07:40 07:40 WBC RBC Hgb Hct MCV MCH MCHC RDW Coeff of Karina Plt Count Immature Gran % (Auto) Neut % (Auto) Lymph % (Auto) Wheeler % (Auto) Eos % (Auto) Baso % (Auto) Immature Gran # (Auto) Neut # (Auto) Lymph # (Auto) Wheeler # (Auto) Eos # (Auto) Baso # (Auto) Puncture Site O2 Saturation ABG pH ABG pCO2 ABG pO2 ABG HCO3 ABG Total CO2 ABG Base Excess Pj Test FiO2 % Sodium Potassium Chloride Carbon Dioxide Anion Gap BUN Creatinine Estimated GFR (MDRD) BUN/Creatinine Ratio Glucose Lactic Acid 1.00 Calcium Total Bilirubin AST ALT Alkaline Phosphatase Total Creatine Kinase Troponin I NT-Pro-B Natriuret Pep 261.000 Total Protein Albumin Globulin Albumin/Globulin Ratio Orders Category Date Time Status ABG DRAW REQUEST Stat CARDIO 04/01/18 07:26 Completed EKG-(ED ONLY) Stat CARDIO 04/01/18 07:26 Completed NEBULIZER TREATMENT Stat CARDIO 04/01/18 07:27 Completed ED IV/MEDIPORT/POWERPORT .ONCE EMERGENCY 04/01/18 07:26 Active ABG Stat LAB 04/01/18 07:26 Completed BLOOD CULTURE (ED ONLY) Stat LAB 04/01/18 07:40 Received CBC W/ AUTO DIFF Stat LAB 04/01/18 07:40 Completed COMPREHENSIVE METABOLIC PANEL Stat LAB 04/01/18 07:40 Completed CREATINE KINASE Stat LAB 04/01/18 07:40 Completed LACTIC ACID Stat LAB 04/01/18 07:40 Completed PRO-BNP [NT-PROBNP] Stat LAB 04/01/18 07:40 Completed TROPONIN I Stat LAB 04/01/18 07:40 Completed 0.9 % Sodium Chloride [Saline Flush] MEDS 04/01/18 07:25 Active 1 syr IVF PRN PRN Ipratropium/Albuterol Neb [Duoneb] MEDS 04/01/18 07:27 Discontinued 1 vial NEB ONCE STA Methylprednisolone Sod Succ/Pf [Solu-Medrol 125 mg] MEDS 04/01/18 07:26 Discontinued 125 mg IVP ONCE STA CHEST, 2 VIEWS PA & LAT Stat RADS 04/01/18 08:08 Completed Medications Generic Name Dose Route Start Last Admin Trade Name Freq PRN Reason Stop Dose Admin Sodium Chloride 1 syr 04/01/18 07:25 10/05/18 08:05 Saline Flush IVF 1 syr PRN PRN Administration To flush IV Discontinued Medications Generic Name Dose Route Start Last Admin Trade Name Hafsa PRN Reason Stop Dose Admin Albuterol/Ipratropium 1 vial 04/01/18 07:27 04/01/18 07:39 Duoneb NEB 04/01/18 07:28 1 vial ONCE STA Administration Methylprednisolone Sodium Succinate 125 mg 04/01/18 07:26 04/01/18 08:05 Solu-Medrol 125 Mg IVP 04/01/18 07:27 125 mg ONCE STA Administration Vital Signs: Temp Pulse Resp BP Pulse Ox 04/01/18 07:10 98.4 F 114 H 20 156/94 H 88 L Departure - Departure Time of Disposition: 09:06 Disposition: ADMITTED INPATIENT Discharge Problem: Chest pain at rest COPD (chronic obstructive pulmonary disease) Qualifiers: COPD type: unspecified COPD Qualified Code(s): J44.9 - Chronic obstructive pulmonary disease, unspecified Instructions: COPD (Chronic Obstructive Pulmonary Disease) (ED) Condition: Good Pt referred to PMD for follow-up: Yes IPMP verified?: No Additional Instructions: Please call your Family Physician as soon as possible to schedule a follow-up appointment. Allergies/Adverse Reactions: Allergies No Known Allergies Allergy (Verified 04/01/18 07:15) Home Medications: Ambulatory Orders Atenolol 50 mg PO BID 05/22/14 Citalopram Hydrobromide [Celexa] 20 mg PO DAILY 05/22/14 Lactobacillus Acidophilus [Probiotic] 1 cap PO TID PRN 05/22/14 Levothyroxine Sodium [Tirosint] 75 mcg PO DAILY 05/22/14 Lorazepam [Ativan] 1 mg PO TID PRN 05/22/14 Metoclopramide HCl [Reglan] 10 mg PO BEDTIME 05/22/14 Vitamin B Complex [B Complex] 1 tab PO DAILY 05/22/14 Atorvastatin Calcium [Lipitor] 10 mg PO DAILY 11/02/17 Montelukast Sodium [Singulair] 10 mg PO DAILY 11/02/17 Ipratropium/Albuterol Neb [Duoneb] 1 vial NEB RTBID 04/01/18 Letrozole [Femara] 2.5 mg PO DAILY 04/01/18 Omeprazole Magnesium [Prilosec Otc] 10 mg PO BID 04/01/18 Rivaroxaban [Xarelto] 20 mg PO DAILY 04/01/18 Disposition Discussed With: Patient, Family
[2018-04-01 10:03] VITALS: BMI 34.6
[2018-04-01] MEDS: SODIUM CHLORIDE 1,000 ML IV SCH (10:20)
[2018-04-01] MEDS: ROCEPHIN 1 GM in SODIUM CHLORIDE 50 ML IV SCH (10:32)
[2018-04-01] MEDS ORDERED: TUSSIONEX PO STA (13:18)
[2018-04-01] MEDS: TESSALON PERLES PO SCH ×2 (14:01→21:13)
[2018-04-01] MEDS: DUONEB NEB SCH ×2 (14:13→19:54)
[2018-04-01] MEDS: TENORMIN PO SCH (16:42)
[2018-04-01] MEDS: SOLU-MEDROL 125 MG IVP SCH (16:46)
[2018-04-01] MEDS ORDERED: REGLAN PO SCH (21:00)
[2018-04-01] MEDS ORDERED: SOLU-MEDROL 40 MG IVP SCH (21:00)
[2018-04-01] MEDS: TUSSIONEX PO SCH (21:13)
[2018-04-01] MEDS: OMEPRAZOLE MAGNESIUM 10 MG PO SCH (21:14)
[2018-04-02] MEDS: SODIUM CHLORIDE 1,000 ML IV SCH ×2 (01:14→15:21)
[2018-04-02] MEDS ORDERED: DUONEB NEB ONE (03:00)
[2018-04-02] MEDS: ATIVAN PO PRN ×3 (03:14→20:25)
[2018-04-02] MEDS: SOLU-MEDROL 125 MG IVP SCH ×2 (03:43→15:18)
[2018-04-02] MEDS: DUONEB NEB SCH ×4 (06:17→21:30)
[2018-04-02] MEDS: SYNTHROID PO SCH (06:22)
[2018-04-02] MEDS: ROCEPHIN 1 GM in SODIUM CHLORIDE 50 ML IV SCH (08:50)
[2018-04-02] MEDS: TUSSIONEX PO SCH ×2 (08:51→20:23)
[2018-04-02] MEDS: CELEXA PO SCH (08:59)
[2018-04-02] MEDS: SINGULAIR PO SCH (08:59)
[2018-04-02] MEDS: TENORMIN PO SCH ×2 (08:59→17:12)
[2018-04-02] MEDS: LIPITOR PO SCH (08:59)
[2018-04-02] MEDS: TESSALON PERLES PO SCH ×3 (08:59→20:23)
[2018-04-02] MEDS ORDERED: NON-FORMULARY MEDICATION (Rivaroxaban [Xarelto] 20 MG) PO SCH (09:00)
[2018-04-02] MEDS ORDERED: FEMARA PO SCH (09:00)
[2018-04-02] MEDS ORDERED: NON-FORMULARY MEDICATION (Citalopram Hydrobromide [Celexa] 20 MG) PO SCH (09:00)
[2018-04-02] MEDS ORDERED: NON-FORMULARY MEDICATION (Levothyroxine Sodium [Tirosint] 75 MCG) PO SCH (09:00)
[2018-04-02] MEDS: OMEPRAZOLE MAGNESIUM 10 MG PO SCH ×2 (09:02→20:26)
[2018-04-02] MEDS: XARELTO PO SCH (09:02)
--- NOTE | 2018-04-02 09:30 | DI ---
Exam: Two-view chest x-ray. Date: 04/02/2018. Comparison: 04/01/2018. HISTORY: Shortness of breath. FINDINGS: A Port-A-Cath is again seen. No acute osseous abnormalities are observed. There is a les ser inspiration with stable elevation of the right hemidiaphragm. There is mild bibasilar atelectasi s. Cardiac silhouette is enlarged. There is mild vascular congestion. Impression: There is a lesser inspiration with development of mild vascular congestion and bibasilar atelectasis or consolidation. Stable cardiomegaly. Stable elevation of the right hemidiaphragm.
[2018-04-03] MEDS: SOLU-MEDROL 125 MG IVP SCH ×2 (03:53→15:49)
[2018-04-03] MEDS: SODIUM CHLORIDE 1,000 ML IV SCH (03:58)
[2018-04-03] MEDS: DUONEB NEB SCH ×4 (05:34→20:56)
[2018-04-03] MEDS: SYNTHROID PO SCH (06:27)
[2018-04-03] MEDS: FEMARA PO SCH ×2 (06:41→19:13)
[2018-04-03] MEDS: LIPITOR PO SCH (09:22)
[2018-04-03] MEDS: SINGULAIR PO SCH (09:22)
[2018-04-03] MEDS: CELEXA PO SCH (09:22)
[2018-04-03] MEDS: XARELTO PO SCH (09:22)
[2018-04-03] MEDS: TESSALON PERLES PO SCH ×3 (09:22→20:17)
[2018-04-03] MEDS: TENORMIN PO SCH ×2 (09:22→17:06)
[2018-04-03] MEDS: ROCEPHIN 1 GM in SODIUM CHLORIDE 50 ML IV SCH (09:22)
[2018-04-03] MEDS: TUSSIONEX PO SCH ×2 (09:23→20:16)
[2018-04-03] MEDS: ATIVAN PO PRN ×2 (12:32→20:16)
[2018-04-03] MEDS: PROTONIX PO SCH (17:06)
[2018-04-03] MEDS: CARAFATE PO SCH ×2 (17:07→20:17)
[2018-04-03] MEDS ORDERED: CARAFATE ONE (19:27)
[2018-04-04] MEDS: SOLU-MEDROL 125 MG IVP SCH (04:06)
[2018-04-04] MEDS ORDERED: CARAFATE ONE (04:14)
[2018-04-04] MEDS: DUONEB NEB SCH ×4 (05:03→20:20)
[2018-04-04] MEDS: SYNTHROID PO SCH (05:40)
[2018-04-04] MEDS: CARAFATE PO SCH ×4 (05:49→20:39)
[2018-04-04] MEDS ORDERED: PRILOSEC PO SCH (06:30)
[2018-04-04] MEDS: ROCEPHIN 1 GM in SODIUM CHLORIDE 50 ML IV SCH (09:01)
[2018-04-04] MEDS: CELEXA PO SCH (09:02)
[2018-04-04] MEDS: TESSALON PERLES PO SCH ×3 (09:02→20:39)
[2018-04-04] MEDS: TENORMIN PO SCH ×2 (09:02→16:46)
[2018-04-04] MEDS: SINGULAIR PO SCH (09:03)
[2018-04-04] MEDS: LIPITOR PO SCH (09:03)
[2018-04-04] MEDS: TUSSIONEX PO SCH ×2 (09:03→20:40)
[2018-04-04] MEDS: XARELTO PO SCH (09:03)
[2018-04-04] MEDS: PROTONIX PO SCH ×2 (09:03→16:46)
[2018-04-04] MEDS: PREDNISONE PO SCH (09:11)
[2018-04-04] MEDS: ATIVAN PO PRN ×2 (09:11→20:39)
--- NOTE | 2018-04-04 09:28 | HP ---
DATE OF SERVICE: 04/01/18 HISTORY OF PRESENT ILLNESS: This 77-year-old white female who has a long history of COPD and bronchiectasis presented to the emergency room with cough and shortness of breath. She does see Dr. Ingram the lung doctor. 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 No night sweats. No malaise, lethargy. No fever or chills. HEENT: Eyes: No visual changes. No eye pain. No eye discharge. ENT: No runny nose. No epistaxis. No sinus pain. No sore throat. No odynophagia. No ear pain. No congestion. RESPIRATORY: Cough. No congestion. No hemoptysis. Positive for shortness of breath. CARDIOVASCULAR: No angina symptoms. No CHF symptoms. No atypical chest pain for CAD. No palpitations. No PND. No orthopnea. GASTROINTESTINAL: No abdominal pain. No nausea or vomiting. No diarrhea or constipation. No hematemesis. No hematochezia. GENITOURINARY: No urgency. No frequency. No dysuria. No hematuria. No obstructive symptoms. No discharge. No pain. No significant abnormal bleeding. MUSCULOSKELETAL: No musculoskeletal pain. No joint swelling. No arthritis. NEUROLOGICAL: No headache. No neck pain. No syncope. No seizures. No dizziness. PSYCHIATRIC: Not anxious. No depression. No suicidal thoughts. No homicidal thoughts. SKIN: No rash. No lesions. No wounds. ENDOCRINE: No unexplained weight loss. No weight gain. HEMATOLOGIC/LYMPHATIC: No anemia. No purpura. No petechiae. No prolonged or excessive bleeding. No palpable lymph nodes. PERSONAL/FAMILY/SOCIAL HISTORY: She is a nonsmoker. She lives with her . No alcohol or ilicit drug use. MEDICATIONS: (HOME) Vitamin B Complex one tab p.o. daily Metoclopramide (Reglan) 10 mg p.o. bedtime Lorazepam (Ativan) 1 mg p.o. t.i.d. p.r.n. Levothyroxide (Tirosint) 75 mcg p.o. daily Lactobacillus Acidophilus (Probiotic) one cap p.o. t.i.d. p.r.n. Citalopram (Celexa) 20 mg p.o. daily Atenolol 50 mg p.o. daily Montelukast (Singulair) 10 mg p.o. daily Atorvastatin (Lipitor) 10 mg p.o. daily Letrozole (Femara) 2.5 mg p.o. daily Omeprazole (Prilosec OTC) 10 mg p.o. b.i.d. Ipratropium/Albuterol (Duoneb) one vial neb RT b.i.d. Rivaroxaban (Xarelto) 20 mg p.o. bedtime ALLERGIES: NKDA PHYSICAL EXAMINATION: VITAL SIGNS: Temperature 99.0, pulse 107, BP 160/98, respiratory rate 20, 02 sat 94 on 2L. Height 5'3", Weight 195 lbs, 5.273 oz. HEENT: Head normocephalic, atraumatic. Eyes: Extraocular muscles are intact. Pupils are equal, round and reactive to light and accommodation. Ears: No lesions. Nose appeared normal. Throat: No exudate or erythema. NECK: Supple. No JVD, no carotid bruit. No lymphadenopathy or thyromegaly. LUNGS: Positive for left port placed upper chest. Diminished breath sounds bilaterally with mild expiratory wheezing otherwise normal. Percussion note normal. Chest symmetrical. HEART: S1, S2, no S3. No murmurs. No cyanosis or clubbing. No ascites. Pulses: Dorsalis pedis and posterior tibial pulses +1 to +2 bilaterally. ABDOMEN: Soft. Nontender. Bowel sounds active. No CVA tenderness. No mass felt. EXTREMITIES: No edema. Full range of motion of all extremities, equal. NEUROLOGIC: No focal deficit. Cranial nerves II through XII are grossly intact. No headache, no double vision or headache. SKIN: Not dry. Intact. Turgor - normal. LYMPHATIC: No palpable lymph nodes/no lymphedema. MUSCULOSKELETAL: Normal joints with no swelling. Muscle tone is normal. ABGs on room air: pH 7.467, pc02 40.1, p02 50, base excess of 5, bicarb 29, TCO2 30, 02 sat 87. White count 9.0, hemoglobin 11.6, hematocrit 35.8, platelets 214. Sodium 140, potassium 4, BUN 5.8, creatinine 0.75, total bili 0.44, AST 23, ALT 10, total protein 7. Chest x-ray shows chronic peribronchial thickening and reticulonodular opacities. No new pulmonary opacities. ASSESSMENT: 1. ACUTE PNEUMONITIS 2. COPD EXACERBATION 3. SHORTNESS OF BREATH 4. ANEMIA 5. LEFT BREAST CANCER 6. BRONCHIECTASIS 7. RECENT RIGHT DVT ON XARELTO 8. CHRONIC RESPIRATORY FAILURE 9. CHRONIC BRONCHITIS 10. HYPERTENSION 11. OBESITY 12. DYSLIPIDEMIA PLAN: 1. We will admit. 2. Routine telemetry orders. 3. CBC, CMP daily. 4. Rocephin 1 gm IV daily. 5. Continue all home medications. 6. Solu-Cortef 100 mg IV q.8hr. 7. Xopenex neb treatments q.6hr ASAEL. 8. Continue all home medications. 9. Oxygen at 1 to 2L. 10. Repeat ABGs on 2L after a few hours. 11. No cardiac markers. 12. Regular diet. 13. Will follow closely. TIME SPENT: More than 70 minutes. MTDD
[2018-04-04] MEDS ORDERED: LIDOCAINE HCL 1% SDV IM STA (10:33)
[2018-04-04] MEDS: ROCEPHIN IM SCH (12:23)
[2018-04-04] MEDS: FEMARA PO SCH (20:39)
[2018-04-05] MEDS: DUONEB NEB SCH ×2 (05:25→10:07)
[2018-04-05] MEDS: CARAFATE PO SCH ×2 (05:56→11:43)
[2018-04-05] MEDS: PROTONIX PO SCH (05:57)
[2018-04-05] MEDS: SYNTHROID PO SCH (05:57)
[2018-04-05] MEDS: TESSALON PERLES PO SCH (08:07)
[2018-04-05] MEDS: LIPITOR PO SCH (08:07)
[2018-04-05] MEDS: TENORMIN PO SCH (08:08)
[2018-04-05] MEDS: CELEXA PO SCH (08:08)
[2018-04-05] MEDS: SINGULAIR PO SCH (08:08)
[2018-04-05] MEDS: ROCEPHIN IM SCH (08:09)
[2018-04-05] MEDS: PREDNISONE PO SCH (08:09)
[2018-04-05] MEDS: XARELTO PO SCH (08:09)
--- NOTE | 2018-04-05 09:29 | PN ---
DATE OF SERVICE: 04/02/18 SUBJECTIVE: 77 year old white female was hospitalized with chronic obstructive pulmonary disease and chest tightness, which was more like a chest soreness. It comes with coughing. This morning she is eating breakfast and has her with her. She says that she is feeling better. Coughing is much less. REVIEW OF SYSTEMS: CONSTITUTIONAL: No night sweats. No fatigue, malaise, lethargy. No fever or chills. HEENT: Eyes: No visual changes. No eye pain. No eye discharge. ENT: No runny nose. No epistaxis. No sinus pain. No sore throat. No odynophagia. No congestion. RESPIRATORY: Mild crouping cough with congestion. No hemoptysis. No shortness of breath. CARDIOVASCULAR: No angina symptoms. No CHF symptoms. No atypical chest pain for CAD. No palpitations. No orthopnea. GASTROINTESTINAL: No abdominal pain. No nausea or vomiting. No diarrhea or constipation. No hematemesis. No hematochezia. GENITOURINARY: No urgency. No frequency. No dysuria. No hematuria. No obstructive symptoms. No discharge. No pain. No significant abnormal bleeding. MUSCULOSKELETAL: No musculoskeletal pain; no joint swelling. NEUROLOGICAL: No headache. No neck pain. No syncope. No seizures. No dizziness. PSYCHIATRIC: Not anxious. No depression. No suicidal thoughts. No homicidal thoughts. SKIN: No rash. No lesions. No wounds. ENDOCRINE: No unexplained weight loss. No weight gain. HEMATOLOGIC/LYMPHATIC: No anemia. No purpura. No petechiae. No prolonged or excessive bleeding. No palpable lymph nodes. PHYSICAL EXAMINATION: GENERAL: The patient is in no acute distress. She is oriented to time, place and person. VITAL SIGNS: Temperature 98.5, pulse 86, respiratory rate 18, blood pressure 128/86, pulse ox 97%. HEENT: Head normocephalic, atraumatic. Eyes: Extraocular muscles are intact. Pupils are equal, round and reactive to light and accommodation. Ears: No lesions. Nose appeared normal. Throat: No exudate or erythema. NECK: Supple. No JVD, no carotid bruit. No lymphadenopathy or thyromegaly. LUNGS: Clear to auscultation. Percussion note normal. Chest symmetrical. HEART: S1, S2, no S3. No murmurs. No cyanosis or clubbing. No ascites. Pulses: Dorsalis pedis and posterior tibial pulses +1 to +2 both sides. ABDOMEN: Soft. Nontender. Bowel sounds active. No CVA tenderness. No mass felt. EXTREMITIES: No edema. Full range of motion of all extremities, equal. NEUROLOGIC: No focal deficit. Cranial nerves II through XII are grossly intact. No headache, no double vision or headache. SKIN: Not dry. Intact. Turgor - normal. LYMPHATIC: No palpable lymph nodes/no lymphedema. MUSCULOSKELETAL: Normal joints with no swelling. Muscle tone is normal. LABS: Hemoglobin 11.3, hematocrit 34, WBC 8,900 with normal differential, creatinine 0.5, BUN 66.6, potassium 3.6. ASSESSMENT: 1. ACUTE BRONCHITIS WITH BRONCHIECTASIS WITH CHRONIC LUNG DISEASE. IT SEEMS TO BE IMPROVING. 2. CHEST TIGHTNESS IS CHEST SORENESS, MORE LIKE PLEURITIC PAIN. IT SEEMS TO BE RESOLVING 3. THE PATIENT'S BMI IS 34 AND SHE IS ADVISED TO LOSE WEIGHT. PLAN: 1. The patient was advised to lose weight. The patient was advised to join pulmonary rehabilitation. All of this was discussed with the patient in detail. CONDITION: Stable. TIME SPENT: More than 30 minutes. Plan and coordination of the patient's care discussed in the presence of nurse. DHAVAL
--- NOTE | 2018-04-05 09:36 | PN ---
DATE OF SERVICE: 04/03/18 SUBJECTIVE: 77 year old white female was hospitalized with chronic obstructive pulmonary disease and acute bronchitis. The patient's condition seems to have improved. She had a good nights sleep. She still has croupy cough off and on, but less than before. REVIEW OF SYSTEMS: CONSTITUTIONAL: No night sweats. No fatigue, malaise, lethargy. No fever or chills. HEENT: Eyes: No visual changes. No eye pain. No eye discharge. ENT: No runny nose. No epistaxis. No sinus pain. No sore throat. No odynophagia. No congestion. RESPIRATORY: Croupy cough, no congestion. No hemoptysis. No shortness of breath. CARDIOVASCULAR: No angina symptoms. No CHF symptoms. No atypical chest pain for CAD. No palpitations. No orthopnea. GASTROINTESTINAL: No abdominal pain. No nausea or vomiting. No diarrhea or constipation. No hematemesis. No hematochezia. GENITOURINARY: No urgency. No frequency. No dysuria. No hematuria. No obstructive symptoms. No discharge. No pain. No significant abnormal bleeding. MUSCULOSKELETAL: No musculoskeletal pain; no joint swelling. NEUROLOGICAL: No headache. No neck pain. No syncope. No seizures. No dizziness. PSYCHIATRIC: Not anxious. No depression. No suicidal thoughts. No homicidal thoughts. SKIN: No rash. No lesions. No wounds. ENDOCRINE: No unexplained weight loss. No weight gain. HEMATOLOGIC/LYMPHATIC: No anemia. No purpura. No petechiae. No prolonged or excessive bleeding. No palpable lymph nodes. PHYSICAL EXAMINATION: GENERAL: The patient is in no acute distress. VITAL SIGNS: Temperature 98.9, pulse 74, respiratory rate 16, blood pressure 150/80, pulse ox 94%. HEENT: Head normocephalic, atraumatic. Eyes: Extraocular muscles are intact. Pupils are equal, round and reactive to light and accommodation. Ears: No lesions. Nose appeared normal. Throat: No exudate or erythema. NECK: Supple. No JVD, no carotid bruit. No lymphadenopathy or thyromegaly. LUNGS: Bilateral wheeze. Percussion note normal. Chest symmetrical. HEART: S1, S2, no S3. No murmurs. No cyanosis or clubbing. No ascites. Pulses: Dorsalis pedis and posterior tibial pulses +1 to +2 both sides. ABDOMEN: Soft. Nontender. Bowel sounds active. No CVA tenderness. No mass felt. EXTREMITIES: No edema. Full range of motion of all extremities, equal. NEUROLOGIC: No focal deficit. Cranial nerves II through XII are grossly intact. No headache, no double vision or headache. SKIN: Not dry. Intact. Turgor - normal. LYMPHATIC: No palpable lymph nodes/no lymphedema. MUSCULOSKELETAL: Normal joints with no swelling. Muscle tone is normal. ASSESSMENT: 1. ACUTE BRONCHITIS WITH CHRONIC LUNG DISEASE WITH BRONCHIECTASIS 2. OBESITY PLAN: 1. Continue antibiotics. 2. Continue steroids and Nebs. 3. Pulmonary rehab. CONDITION: Stable. TIME SPENT: More than 30 minutes. Plan and coordination of the patient's care discussed in the presence of nurse. DHAVAL
[2018-04-05] MEDS: ATIVAN PO PRN (09:37)
--- NOTE | 2018-04-05 09:48 | PN ---
DATE OF SERVICE: 04/04/18 SUBJECTIVE: 77 year old white female hospitalized with acute bronchitis with severe chronic lung disease, bronchiectasis. Her chest soreness is mostly from coughing. The patient's condition overall has improved. She is coughing much less. The patient again was advised to joining pulmonary rehab and lose weight. She was advised to walk at least half a mile to a mile a day. REVIEW OF SYSTEMS: CONSTITUTIONAL: No night sweats. No fatigue, malaise, lethargy. No fever or chills. HEENT: Eyes: No visual changes. No eye pain. No eye discharge. ENT: No runny nose. No epistaxis. No sinus pain. No sore throat. No odynophagia. No congestion. RESPIRATORY: No cough, no congestion. No hemoptysis. No shortness of breath. CARDIOVASCULAR: No angina symptoms. No CHF symptoms. No atypical chest pain for CAD. No palpitations. No orthopnea. GASTROINTESTINAL: No abdominal pain. No nausea or vomiting. No diarrhea or constipation. No hematemesis. No hematochezia. GENITOURINARY: No urgency. No frequency. No dysuria. No hematuria. No obstructive symptoms. No discharge. No pain. No significant abnormal bleeding. MUSCULOSKELETAL: No musculoskeletal pain; no joint swelling. NEUROLOGICAL: No headache. No neck pain. No syncope. No seizures. No dizziness. PSYCHIATRIC: Not anxious. No depression. No suicidal thoughts. No homicidal thoughts. SKIN: No rash. No lesions. No wounds. ENDOCRINE: No unexplained weight loss. No weight gain. HEMATOLOGIC/LYMPHATIC: No anemia. No purpura. No petechiae. No prolonged or excessive bleeding. No palpable lymph nodes. PHYSICAL EXAMINATION: GENERAL: The patient is orient to time, place and person. HEENT: Head normocephalic, atraumatic. Eyes: Extraocular muscles are intact. Pupils are equal, round and reactive to light and accommodation. Ears: No lesions. Nose appeared normal. Throat: No exudate or erythema. NECK: Supple. No JVD, no carotid bruit. No lymphadenopathy or thyromegaly. LUNGS: Decreased breath sounds with mild wheeze. Percussion note normal. Chest symmetrical. HEART: S1, S2, no S3. No murmurs. No cyanosis or clubbing. No ascites. Pulses: Dorsalis pedis and posterior tibial pulses +1 to +2 both sides. ABDOMEN: Soft. Nontender. Bowel sounds active. No CVA tenderness. No mass felt. EXTREMITIES: No edema. Full range of motion of all extremities, equal. NEUROLOGIC: No focal deficit. Cranial nerves II through XII are grossly intact. No headache, no double vision or headache. SKIN: Not dry. Intact. Turgor - normal. LYMPHATIC: No palpable lymph nodes/no lymphedema. MUSCULOSKELETAL: Normal joints with no swelling. Muscle tone is normal. ASSESSMENT: 1. ACUTE BRONCHITIS SEEMS TO BE RESOLVING WITH STEROIDS AND ANTIBIOTICS AND NEBS TREATMENTS. PLAN: 1. Again, advised to exercise and pulmonary rehab discussed. 2. The patient is going to be seen by Cardiopulmonary Department for incentive spirometry that she can do the exercises with it. CONDITION: Stable. TIME SPENT: More than 30 minutes. Plan and coordination of the patient's care discussed in the presence of nurse. DHAVAL
[2018-04-05 10:36] VITALS: BP 129/67; TEMP 97.6
--- NOTE | 2018-04-05 10:48 | CM.DICTOOL ---
ADMISSION: 04/01/18 09:20 DISCHARGE: APRIL 05, 2018 DATE OF SERVICE: 04/05/18 FINAL DIAGNOSIS ACUTE PNEUMONITIS BRONCHIECTASIS COPD EXACERBATION, HAS HOME OXYGEN CHRONIC RESPIRATORY FAILURE HYPERTENSION DYSLIPIDEMIA HYPOTHYROID HISTORY OF DVT, RIGHT (XARELTO) DIVERTICULOSIS BREAST CANCER, LEFT (January,) MASTECTOMY, LEFT 02/17/2018 (DR. NAPIER) PORT PLACEMENT, 01/2018 (NO CHEMO) COLONOSCOPY, 2013 (DR. RODRIGUEZ) CHOLECYSTECTOMY LAST VITALS Temp Pulse Resp BP Pulse Ox 98.6 F 72 18 161/77 H 94 L 04/05/18 06:00 04/05/18 06:00 04/05/18 06:00 04/05/18 06:00 04/05/18 06:00 TAKE THESE MEDICATIONS AT HOME Albuterol/Ipratropium (Duoneb) 1 vial NEB RTQID [facility] Last Admin: 04/05/18 05:25 Dose: 1 vial Atenolol (Tenormin) 50 mg PO DAILY [facility] Last Admin: 04/05/18 08:08 Dose: 50 mg Atorvastatin Calcium (Lipitor) 10 mg PO DAILY [facility] Last Admin: 04/05/18 08:07 Dose: 10 mg Citalopram Hydrobromide (Celexa) 20 mg PO DAILY [facility] Last Admin: 04/05/18 08:08 Dose: 20 mg Letrozole (Femara) 2.5 mg PO 1900 [facility] Last Admin: 04/04/18 20:39 Dose: 2.5 mg Levothyroxine Sodium (Synthroid) 75 mcg PO QDAC [facility] Last Admin: 04/05/18 05:57 Dose: 75 mcg Lorazepam (Ativan) 1 mg PO TID PRN PRN Reason: Agitation Last Admin: 04/04/18 20:39 Dose: 1 mg Montelukast Sodium (Singulair) 10 mg PO DAILY [facility] Last Admin: 04/05/18 08:08 Dose: 10 mg Omeprazole Magnesium (Prilosec Otc 10 mg PO BIDAC [facility] Last Admin: Prednisone (Prednisone) 10 mg PO BID [facility] Last Admin: 04/05/18 08:09 Dose: 20 mg Rivaroxaban (Xarelto) 20 mg PO DAILY [facility] Last Admin: 04/05/18 08:09 Dose: 20 mg Vitamin B Complex 1 tab DAILY Last Admin: Metoclopramide HCL (Reglan) 10 mg PO DAILY AT BEDTIME Last Admin: Keflex 500 mg PO TID for 10 days Last Admin: ALLERGIES No Known Allergies Allergy (Verified 04/01/18 07:15) DISCONTINUED MEDICATIONS None NEW PRESCRIPTIONS: Prednisone 10 mg BID for 10 days, then daily for 10 days take with food Keflex 500 mg TID for 10 days SMOKING: Not Applicable DISEASE SPECIFIC EDUCATION: Activity Diet and Exercise Medications Use of steroids and risk of bone demineralization, GI upset LAB REVIEW: 04/05/18 05:45 04/05/18 05:45 04/05/18 05:45: Sodium 139.3, Potassium 3.52, Chloride 98.4, Carbon Dioxide 35.9 H, Anion Gap 8.52, BUN 18.2 H, Creatinine 0.86, Estimated GFR (MDRD) 64.00 , BUN/Creatinine Ratio 21.16, Glucose 85.5, Calcium 9.25, Total Bilirubin 0.48, AST 33.8, ALT 20.9, Alkaline Phosphatase 89.1, Total Protein 6.98, Albumin 3.95 , Globulin 3.03, Albumin/Globulin Ratio 1.30 04/05/18 05:45: WBC 10.89 H, RBC 4.12 L, Hgb 12.4, Hct 38.3, MCV 93.0, MCH 30.1 , MCHC 32.4, RDW Coeff of Karina 12.8, Plt Count 242, Immature Gran % (Auto) 0.9, Neut % (Auto) 75.8, Lymph % (Auto) 17.4, [place] % (Auto) 5.6, Eos % (Auto) 0.2, Baso % (Auto) 0.1, Immature Gran # (Auto) 0.1, Neut # (Auto) 8.3 H, Lymph # ( Auto) 1.9, [place] # (Auto) 0.6, Eos # (Auto) 0.0, Baso # (Auto) 0.0 PLAN: Discharge home Diet: Regular as tolerated, protein sources encouraged Activity: Encouraged to ambulate several times daily Continue use of oxygen at 2 liters Use Duonebs at least 4 times a day Use Incentive Spirometry at least 4 times a day Continue medications as listed on nursing discharge information sheet May take Phenergan with Codeine 1 teaspoon QID as needed for cough. (has at home ) An appointment is scheduled with Dr. Mejía/Lia Da Silva APRN on April 12 , at 11:30 Mrs. Franco is alert and oriented x 3. She is independent with Activities of Daily Living. She is ambulatory without use of assistive device or assistance from the nursing staff. Mrs. Franco is continent of bladder and bowel. Meal intakes are good at 50-100%. A well approximated and clean incision line is noted to the left chest from a recent left mastectomy. A port is visible and palpated under the skin to the left upper chest. No decubitus ulcers, rashes or skin irritation is noted. Juliocesar Mejía MD
--- NOTE | 2018-04-05 10:55 | DS ---
DATE OF SERVICE: 04/05/2018 FINAL DIAGNOSIS: 1. ACUTE PNEUMONITIS 2. BRONCHIECTASIS 3. COPD EXACERBATION, HAS HOME OXYGEN 4. CHRONIC RESPIRATORY FAILURE 5. HYPERTENSION 6. DYSLIPIDEMIA 7. HYPOTHYROID 8. HISTORY OF DVT, RIGHT (XARELTO) 9. DIVERTICULOSIS 10. BREAST CANCER, LEFT (January,) 11. MASTECTOMY, LEFT 02/17/18 (DR. NAPIER) 12. PORT PLACEMENT, 01/2018 (NO CHEMO) 13. COLONOSCOPY, 2013 (DR. RODRIGUEZ) 14. CHOLECYSTECTOMY DISCHARGE INSTRUCTIONS: Followup appointment is scheduled with Lia Da Silva APRN/Dr. Mejía on at 11:30 a.m. Continue use of oxygen at 2L. MEDICATIONS AT DISCHARGE: Albuterol neb Rt q.i.d. ASAEL Atenolol 50 mg p.o. daily with meal ASAEL Lipitor 10 mg p.o. daily [facility]SAEL Celexa 20 mg p.o. daily ASAEL Femara 2.5 mg p.o. 1900 ASAEL Synthroid 75 mcg p.o. q.d. a.c. ASAEL Ativan 1 mg p.o. t.i.d. p.r.n. Singulair 10 mg p.o. daily ASAEL Prilosec OTC 10 mg p.o. b.i.d. a.c. ASAEL Prednisone 10 mg p.o. b.i.d. with meal ASAEL Xarelto 20 mg p.o. daily ASAEL Vitamin B Complex one tab daily May take Phenergan with Codeine one teaspoon q.i.d. as needed for cough (has at home). Use incentive spirometry at least four times a day. NEW PRESCRIPTIONS: Prednisone 10 mg b.i.d. for 10 days then daily for 10 days, take with food Keflex 500 mg t.i.d. for 10 days DISCONTINUED MEDICATIONS: None DIET INSTRUCTIONS: Regular as tolerated, protein sources encouraged. ACTIVITY: Encouraged to ambulate several times daily. SMOKING: N/A DISEASE SPECIFIC EDUCATION: Activity Diet and exercise Medications Use of steroids and risk of bone demineralization, GI upset HOSPITAL COURSE: This is a 77-year-old White/ female hospitalized with acute bronchitis/ bronchiectasis, chronic lung disease treated with IV antibiotics, steroids and nebs treatment. The side effects of steroids discussed including avascular necrosis of femoral bones and osteoporosis. The patient is strongly advised to lose weight. Pulmonary rehab is advised and declined. The patient is discharged on antibiotics, steroids and nebs. The patient is advised to walk every day, nebulizers four times a day. LABS: 04/05/18 05:45: Sodium 139.3, Potassium 3.52, Chloride 98.4, Carbon Dioxide 35.9 H, Anion Gap 8.52, BUN 18.2 H, Creatinine 0.86, Estimated GFR (MDRD) 64.00 , BUN/Creatinine Ratio 21.16, Glucose 85.5, Calcium 9.25, Total Bilirubin 0.48, AST 33.8, ALT 20.9, Alkaline Phosphatase 89.1, Total Protein 6.98, Albumin 3.95 , Globulin 3.03, Albumin/Globulin Ratio 1.30 04/05/18 05:45: WBC 10.89 H, RBC 4.12 L, Hgb 12.4, Hct 38.3, MCV 93.0, MCH 30.1 , MCHC 32.4, RDW Coeff of Karina 12.8, Plt Count 242, Immature Gran % (Auto) 0.9, Neut % (Auto) 75.8, Lymph % (Auto) 17.4, [place] % (Auto) 5.6, Eos % (Auto) 0.2, Baso % (Auto) 0.1, Immature Gran # (Auto) 0.1, Neut # (Auto) 8.3 H, Lymph # ( Auto) 1.9, [place] # (Auto) 0.6, Eos # (Auto) 0.0, Baso # (Auto) 0.0 TIME SPENT: More than 60 minutes. MTDD
--- NOTE | 2018-04-05 10:56 | PCM.PROG ---
Attending Provider: ATTENDING PROVIDER: Dr. JACQUIE WRAY DATE OF SERVICE: 04/05/18 SUBJECTIVE: This 77 year old WHITE/ F was hospitalized 04/01/18 with acute bronchitis, COPD and bronchiectasis. Condition improved somewhat. She is still coughing. She is in no distress and she is going to have chronic bronchitis with chronic cough. REVIEW OF SYSTEMS: CONSTITUTIONAL: No night sweats. No fatigue, malaise, lethargy. No fever or chills. HEENT: Eyes: No visual changes. No eye pain. No eye discharge. ENT: No runny nose. No epistaxis. No sinus pain. No odynophagia. No congestion. RESPIRATORY: Chronic cough. No hemoptysis. No shortness of breath. CARDIOVASCULAR: No angina symptoms. No CHF symptoms. No atypical chest pain for CAD. No palpitations. No orthopnea.. GASTROINTESTINAL: No abdominal pain. No nausea or vomiting. No diarrhea or constipation. No hematemesis. No hematochezia. GENITOURINARY: No urgency. No frequency. No dysuria. No hematuria. No obstructive symptoms. No discharge. No pain. No significant abnormal bleeding. MUSCULOSKELETAL: No musculoskeletal pain; no joint swelling. NEUROLOGICAL: Awake, alert, oriented to time, place and person. No headache. No neck pain. No syncope. No seizures. No dizziness. PSYCHIATRIC: Not anxious. No depression. No suicidal thoughts. No homicidal thoughts. SKIN: No rash. No lesions. No wounds. ENDOCRINE: No unexplained weight loss. No weight gain. HEMATOLOGIC/LYMPHATIC: No anemia. No purpura. No petechiae. No prolonged or excessive bleeding. No palpable lymph nodes. PHYSICAL EXAMINATION: GENERAL: The patient is awake, alert and oriented, sitting in chair in no distress. VITAL SIGNS: Temperature 98.6 F, Pulse 72, Respiratory Rate 18, BP 161/77, Pulse Ox 94% HEENT: Head normocephalic, atraumatic. Eyes: Extraocular muscles are intact. Pupils are equal, round and reactive to light and accommodation. Ears: No lesions. Nose appeared normal. Throat: No exudate or erythema. NECK: Supple. No JVD, no carotid bruit. No lymphadenopathy or thyromegaly. LUNGS: Few expiratory wheezes bilaterally. Percussion note normal. Chest symmetrical. HEART: S1, S2, no S3. No murmurs. No cyanosis or clubbing. No ascites. Pulses: Dorsalis pedis and posterior tibial pulses +1 to +2 both sides. ABDOMEN: Soft. Non-tender. Bowel sounds active. No CVA tenderness. No mass felt. EXTREMITIES: No edema. Full range of motion of all extremities, equal. NEUROLOGIC: No focal deficit. Cranial nerves II through XII are grossly intact. No headache, no double vision or headache. SKIN: Warm and dry. Intact. Turgor-normal. LYMPHATIC: No palpable lymph nodes/no lymphedema. MUSCULOSKELETAL: Normal joints with no swelling. Muscle tone is normal. LAB REVIEW: 04/05/18 05:45 04/05/18 05:45 04/05/18 05:45: Sodium 139.3, Potassium 3.52, Chloride 98.4, Carbon Dioxide 35.9 H, Anion Gap 8.52, BUN 18.2 H, Creatinine 0.86, Estimated GFR (MDRD) 64.00 , BUN/Creatinine Ratio 21.16, Glucose 85.5, Calcium 9.25, Total Bilirubin 0.48, AST 33.8, ALT 20.9, Alkaline Phosphatase 89.1, Total Protein 6.98, Albumin 3.95 , Globulin 3.03, Albumin/Globulin Ratio 1.30 04/05/18 05:45: WBC 10.89 H, RBC 4.12 L, Hgb 12.4, Hct 38.3, MCV 93.0, MCH 30.1 , MCHC 32.4, RDW Coeff of Karina 12.8, Plt Count 242, Immature Gran % (Auto) 0.9, Neut % (Auto) 75.8, Lymph % (Auto) 17.4, Casey % (Auto) 5.6, Eos % (Auto) 0.2, Baso % (Auto) 0.1, Immature Gran # (Auto) 0.1, Neut # (Auto) 8.3 H, Lymph # ( Auto) 1.9, Casey # (Auto) 0.6, Eos # (Auto) 0.0, Baso # (Auto) 0.0 ASSESSMENT: 1. Acute bronchitis with bronchiectasis 2. Chronic lung disease 3. Hypertension 4. BMI 35, sedentary lifestyle PLAN: 1. Will discharge home. 2. Continue Phenergan with Codeine (the patient has at home for cough). 3. Prednisone 10 mg b.i.d. for 10 days then one a day for 10 days. 4. Atenolol 50 mg daily for blood pressure. 5. Keflex 500 mg t.i.d. for 10 days. 6. Will see the patient in the office in one week. 7. Nebulizers. 8. Encouraged the patient to walk, use oxygen. 9. Counseling for diet and weight loss. Plan and coordination of the patient's care discussed in the presence of Pc Support Specialist and nurse. CONDITION: Stable SCRIBED BY: Dimas RAM scribed while in presence of service performed by Dr. JACQUIE WRAY on 04/05/18 ([id number])
--- NOTE | 2018-04-05 11:11 | PN ---
CODING FOR BILLIN04/01/18 Admission day Level 5 04/02/18 Intermediate 04/03/18 Intermediate 04/04/18 Intermediate 04/05/18 Discharge MTDD
[2018-04-05] MEDS: TUSSIONEX PO SCH (11:44)
== END 2018-04-05 13:52 | disposition home or self-care (01) | DRG 947 ==
LOC: ED 07:10 → MEDSURG B 09:20
PROVIDERS: ADMIT Internal Medicine; ATTEND Internal Medicine
DX: R53.81 Other malaise (principal); J18.9 Pneumonia, unspecified organism; J44.1 Chronic obstructive pulmonary disease with (acute) exacerbation; J96.10 Chronic respiratory failure, unspecified whether with hypoxia or hypercapnia; J47.9 Bronchiectasis, uncomplicated; E78.5 Hyperlipidemia, unspecified; E03.9 Hypothyroidism, unspecified; E66.9 Obesity, unspecified; K57.90 Diverticulosis of intestine, part unspecified, without perforation or abscess without bleeding; D64.9 Anemia, unspecified; I10 Essential (primary) hypertension; R07.9 Chest pain, unspecified; Z79.01 Long term (current) use of anticoagulants; Z86.718 Personal history of other venous thrombosis and embolism; Z99.81 Dependence on supplemental oxygen
CPT/HCPCS: 36415; 80053; 82550; 82803; 83605; 83880; 84484; 85025; 87040; 93005; 93010; 94150; 94640; 96374; 99284

== ENCOUNTER 2018-09-23 09:51 | Emergency (ER) ==
[2018-09-23 09:58] VITALS: BP 147/82; TEMP 98.9; BMI 35.0
[2018-09-23] MEDS ORDERED: DUONEB NEB STA (10:09)
--- NOTE | 2018-09-23 10:10 | ED.PDOC ---
General ED Provider: Dr. RADHA GASTELUM Chief Complaint: Cough Stated Complaint: Cough; was better next day after being seen by Dr Wray 2 days ago. More coughing now. Time Seen by Physician: 10:00 Mode of Arrival: Walk-In Information Source: Patient Exam Limitations: No limitations Primary Care Provider: JACQUIE WRAY Nursing and Triage Documentation Reviewed and Agree: Yes Does patient meet sepsis criteria?: No System Inflammatory Response Syndrome: Not Applicable Sepsis Protocol: For patient's 13 years and over: Temp is 96.8 and below OR 101 and greater Pulse >90 BPM Resp >20/minute Acutely Altered Mental Status Are patient's symptoms suggestive of a new infection, such as: -Pneumonia -Skin, Soft Tissue -Endocarditis -UTI -Bone, Joint Infection -Implantable Device -Acute Abdominal Infection -Wound Infection -Meningitis -Blood Stream Catheter Infection -Unknown Review of Systems - Review Of Systems Constitutional: Reports: No symptoms Ears, Nose, Mouth, Throat: Reports: No symptoms Respiratory: Reports: Cough (a little worse than earlier in week; taking ABX/ Steroid - was better after starting on Rx) Cardiac: Reports: No symptoms Musculoskeletal: Reports: No symptoms All Other Systems: Reviewed and Negative Past Medical History - Past Medical History Previously Healthy: Yes Endocrine: Reports: Hypothyroid, Dyslipidemia Cardiovascular: Reports: Hypertension Respiratory: Reports: COPD Hematological: Reports: None Gastrointestinal: Reports: None Genitourinary: Reports: None Neuro/Psych: Reports: None Musculoskeletal: Reports: None Cancer: Reports: None Last Menstrual Period: menopause - Surgical History General Surgical History: Reports: None - Family History Family History: Reports: None - Social History Smoking Status: Never smoker Hx Substance Use: No Alcohol Screening: None Physical Exam - Physical Exam Appearance: Well-appearing Ill-appearing: None Pain Distress: None Eyes: MARTIN, EOMI ENT: Oropharynx normal Neck: Supple Respiratory: Airway patent, Breath sounds clear, Breath sounds equal, Respirations nonlabored Cardiovascular: RRR, Pulses normal GI/: Soft, Nontender Musculoskeletal: Normal strength, ROM intact, No edema Skin: Warm, Dry, Normal color Neurological: Sensation intact, Motor intact, Alert, Oriented Psychiatric: Affect appropriate, Mood appropriate Interpretation - Radiology Interpretation Radiology Interpretation By: Radiologist Radiology Results: No acute changes (Cardiomegally; chronic interstitial changes ) Re-Evaluation - Re-Evaluation Time of Re-Evaluation: 11:10 (Discussed findings at [facility]; options - will continue current RX from Dr. Wray) Status: Unchanged (No acute distress; occ METAL DRILL PRESS OPERATOR cough) Vital Signs Stable: Yes Critical Care Note - Critical Care Note Total Time (mins): 12 Course - Course Orders, Labs, Meds: Lab Review 09/23/18 10:20 Influ A Molecular Assay Negative by naat Influ B Molecular Assay Negative by naat Orders Category Date Time Status NEBULIZER TREATMENT Stat CARDIO 09/23/18 10:10 Ordered FLU A/B MOLECULAR Stat LAB 09/23/18 10:20 Completed Ipratropium/Albuterol Neb [Duoneb] MEDS 09/23/18 10:09 Discontinued 1 vial NEB ONCE STA CHEST, 2 VIEWS PA & LAT Stat RADS 09/23/18 10:09 Completed Medications Discontinued Medications Generic Name Dose Route Start Last Admin Trade Name Freq PRN Reason Stop Dose Admin Albuterol/Ipratropium 1 vial 09/23/18 10:09 09/23/18 10:24 Duoneb NEB 09/23/18 10:10 1 vial ONCE STA Administration Vital Signs: Temp Pulse Resp BP Pulse Ox 09/23/18 09:51 98.9 F 64 16 147/82 H 91 L Departure - Departure Time of Disposition: 11:21 Disposition: HOME SELF-CARE Discharge Problem: Bronchitis Instructions: Acute Bronchitis (ED) Condition: Stable Pt referred to PMD for follow-up: Yes (Follow up with Dr. Wray next week if not better) IPMP verified?: No (Not indicated) Additional Instructions: Continue plan by Dr. Wray (ABX/Steroid); return to ER if fever 101 or greater; worsening cough; shaking chills, soaking sweats. Allergies/Adverse Reactions: Allergies No Known Allergies Allergy (Verified 09/23/18 10:00) Home Medications: Ambulatory Orders Atenolol 50 mg PO DAILY 05/22/14 Citalopram Hydrobromide [Celexa] 20 mg PO DAILY 05/22/14 Lactobacillus Acidophilus [Probiotic] 1 cap PO TID PRN 05/22/14 Levothyroxine Sodium [Tirosint] 75 mcg PO DAILY 05/22/14 Lorazepam [Ativan] 1 mg PO TID PRN 05/22/14 Metoclopramide HCl [Reglan] 10 mg PO BEDTIME 05/22/14 Vitamin B Complex [B Complex] 1 tab PO DAILY 05/22/14 Atorvastatin Calcium [Lipitor] 10 mg PO DAILY 11/02/17 Montelukast Sodium [Singulair] 10 mg PO DAILY 11/02/17 Letrozole [Femara] 2.5 mg PO DAILY 04/01/18 Omeprazole Magnesium [Prilosec Otc] 10 mg PO BID 04/01/18 Rivaroxaban [Xarelto] 20 mg PO BEDTIME 04/01/18 Disposition Discussed With: Patient (And ; pt has had phenergan with codeine - states takes Neb tx before bed and uses O2 night; desides not keeping awake from coughing and does not need Phenergan with Codeine)
--- NOTE | 2018-09-23 10:41 | DI ---
EXAM: Chest two views HISTORY: Cough COMPARISON: 04/02/2018 TECHNIQUE: Two views of the chest were performed FINDINGS: Heart is enlarged and unchanged. Mediastinal contour unchanged. No visible pneumothorax. Stable elevation right hemidiaphragm. Chronic interstitial changes, peribronchial thickening and r eticular nodular opacities. No definite new consolidation. IMPRESSION: 1. Chronic interstitial changes, peribronchial thickening and reticular nodular opacities. No defin ite new consolidation. 2. Cardiomegaly.
== END 2018-09-23 11:33 | disposition home or self-care (01) ==
LOC: ED 09:51
DX: J40 Bronchitis, not specified as acute or chronic (principal)
CPT/HCPCS: 87502; 94640; 99282

== ENCOUNTER 2018-11-23 09:42 | Outpatient (CLI) ==
--- NOTE | 2018-11-23 10:44 | MAMMO ---
EXAM: Digital diagnostic mammogram with tomosynthesis HISTORY: Personal history of breast cancer, status post left mastectomy COMPARISON: 11/18/2017 FINDINGS: Digital MLO and CC views of the right breast were performed. Tomosynthesis was performed . Computer aided detection utilized. There are scattered fibroglandular densities. Benign calcific ations in the right breast. There is no evidence for mass, asymmetry, distortion, or suspicious calc ifications in the right breast. IMPRESSION: 1. No evidence of malignancy in the right breast. 2. Status post left mastectomy. 3. Annual screening mammogram is recommended in one year. BIRADS category 2, benign
== END 2018-11-23 09:43 | disposition home or self-care (01) ==
LOC: RAD 09:42
PROVIDERS: ATTEND Surgery
DX: Z85.3 Personal history of malignant neoplasm of breast (principal)

== ENCOUNTER 2020-09-10 12:22 | Inpatient (IN) ==
[2020-09-10] MEDS ORDERED: TYLENOL PO PRN (12:33)
[2020-09-10] MEDS ORDERED: NITROSTAT SL PRN (12:33)
[2020-09-10] MEDS ORDERED: ATROPINE SULFATE PFS IVP PRN (12:33)
[2020-09-10 12:52] LABS: ABG PH 7.44 (7.35-7.45)
[2020-09-10 13:13] LABS: ALANINE AMINOTRANSFERASE 19.9 U/L (0-35); ALBUMIN 4.14 g/dL (3.5-5.0); ASPARTATE AMINO TRANSFERASE 35.2 U/L (14-36); BILIRUBIN,TOTAL 0.63 mg/dL (0.2-1.3); BLOOD UREA NITROGEN 7.6 mg/dL (7-17); CALCIUM 9.21 mg/dL (8.4-10.2); CARBON DIOXIDE 28.1 mmol/L (22-30.0); CHLORIDE 101.6 mmol/L (98-107); CREATININE 0.85 mg/dL (0.60-1.30); GLUCOSE 127.3 mg/dL (74-106); POTASSIUM 3.65 mmol/L (3.5-5.1); SODIUM 137.6 mmol/L (134.5-145); TOTAL PROTEIN 7.72 g/dL (6.3-8.2)
[2020-09-10 13:22] VITALS: BMI 34.0
[2020-09-10] MEDS ORDERED: LACTOBACILLUS ACIDOPHILUS PO PRN (13:46)
[2020-09-10 13:48] LABS: BASOPHILS # (AUTO) 0.1 K/uL (0-0.2); BASOPHILS % (AUTO) 0.5 % (0.0-3.0); EOSINOPHILS # (AUTO) 0.2 K/ul (0.0-0.7); EOSINOPHILS % (AUTO) 2.4 % (0.0-7.0); HEMATOCRIT 36.1 % (37.0-47.0); HEMOGLOBIN 11.8 g/dl (12.0-16.0); IMMATURE GRANULOCYTE % (AUTO) 0.2 % (0.0-5.0); LYMPHOCYTES # (AUTO) 1.2 K/uL (0.60-3.4); LYMPHOCYTES % (AUTO) 12.6 (10.0-50.0); MEAN CORPUSCULAR HEMOGLOBIN 31.4 pg (27.0-31.0); MEAN CORPUSCULAR HGB CONC 32.7 (31.8-35.4); MONOCYTES # (AUTO) 0.7 K/uL (0.4-2.0); MONOCYTES % (AUTO) 7.3 (0-10); NEUTROPHILS # (AUTO) 7.3 K/ul (2.0-6.9); PLATELET COUNT 162 10^3/uL (140-440); RDW COEFFICIENT OF VARIATION 12.9 % (11.6-14.8); RED BLOOD COUNT 3.76 10^6/ul (4.20-5.40); WHITE BLOOD COUNT 9.45 K/ul (4.6-10.2)
--- NOTE | 2020-09-10 13:54 | DI ---
EXAM: Chest two views HISTORY: Shortness of breath COMPARISON: 09/23/2018 TECHNIQUE: Two views of the chest were performed FINDINGS: Heart is enlarged. Mediastinal contour unchanged. No visible pneumothorax. Elevation ri ght hemidiaphragm. Bilateral interstitial opacities, peribronchial thickening, and reticular nodular opacities, appear increased IMPRESSION: 1. Bilateral interstitial opacities, peribronchial thickening, and reticular nodular opacities appea r increased. Findings could relate to progression of a chronic process with acute infectious process or interstitial edema possible. 2. Cardiomegaly
[2020-09-10 14:01] LABS: BILIRUBIN,URINE Negative (NEGATIVE); CLARITY,URINE Clear (CLEAR); COLOR,URINE Yellow (YELLOW); GLUCOSE, URINE (UA) Negative (NEGATIVE); KETONES,URINE Negative (NEGATIVE); LEUKOCYTE ESTERASE ,URINE Negative (NEGATIVE); NITRITE,URINE Negative (NEGATIVE); PROTEIN,URINE Negative (NEGATIVE); URINE, BLOOD 1+ (NEGATIVE); UROBILINOGEN,URINE 0.2 (0.2)
[2020-09-10] MEDS: ROCEPHIN 1 GM/50 ML D5W 1 GM/50 ML BAG IV SCH (14:02)
[2020-09-10] MEDS: SOLU-CORTEF 250 MG IVP SCH ×2 (14:07→20:31)
[2020-09-10] MEDS: ZITHROMAX PO SCH (14:07)
[2020-09-10 14:08] LABS: SQUAMOUS EPITHELIAL CELL,UR NOT PRESENT (0-5)
[2020-09-10] MEDS: VENTOLIN HFA (PER PUFF-WITH SPACER) IH SCH (19:39)
[2020-09-10] MEDS ORDERED: VENTOLIN HFA (PER PUFF-WITH SPACER) IH SCH (20:00)
[2020-09-10] MEDS: SYMBICORT 160-4.5 MCG INHALER IH SCH (20:30)
[2020-09-10] MEDS: REGLAN PO SCH (20:33)
[2020-09-10] MEDS: XARELTO PO SCH (20:33)
[2020-09-10] MEDS: REQUIP PO SCH (20:33)
[2020-09-10] MEDS: ATIVAN PO SCH (20:33)
[2020-09-11 04:47] LABS: ABG PH 7.38 (7.35-7.45)
[2020-09-11] MEDS: VENTOLIN HFA (PER PUFF-WITH SPACER) IH SCH ×3 (04:50→19:25)
[2020-09-11 05:08] LABS: HEMATOCRIT 34.3 % (37.0-47.0); HEMOGLOBIN 11.4 g/dl (12.0-16.0); MEAN CORPUSCULAR HEMOGLOBIN 31.3 pg (27.0-31.0); MEAN CORPUSCULAR HGB CONC 33.2 (31.8-35.4); MEAN CORPUSCULAR VOLUME 94.2 fl (81.0-99.0); PLATELET COUNT 161 10^3/uL (140-440); RDW COEFFICIENT OF VARIATION 12.5 % (11.6-14.8); RED BLOOD COUNT 3.64 10^6/ul (4.20-5.40); WHITE BLOOD COUNT 7.38 K/ul (4.6-10.2)
[2020-09-11 05:15] LABS: ANISOCYTOSIS NOT PRESENT (NOT PRESENT)
[2020-09-11 05:20] LABS: ALANINE AMINOTRANSFERASE 17.7 U/L (0-35); ALBUMIN 3.68 g/dL (3.5-5.0); ALKALINE PHOSPHATASE 87.8 U/L (53-141); ASPARTATE AMINO TRANSFERASE 26.2 U/L (14-36); BILIRUBIN,TOTAL 0.52 mg/dL (0.2-1.3); BLOOD UREA NITROGEN 8.2 mg/dL (7-17); CALCIUM 8.91 mg/dL (8.4-10.2); CARBON DIOXIDE 30.3 mmol/L (22-30.0); CHLORIDE 103.2 mmol/L (98-107); CREATININE 0.69 mg/dL (0.60-1.30); GLUCOSE 167.4 mg/dL (74-106); POTASSIUM 3.51 mmol/L (3.5-5.1); SODIUM 138.1 mmol/L (134.5-145); TOTAL PROTEIN 7.04 g/dL (6.3-8.2)
[2020-09-11] MEDS: PRILOSEC PO SCH (05:34)
[2020-09-11] MEDS: SYNTHROID PO SCH (05:35)
[2020-09-11] MEDS: SYMBICORT 160-4.5 MCG INHALER IH SCH ×2 (08:33→21:05)
[2020-09-11] MEDS: SINGULAIR PO SCH (08:34)
[2020-09-11] MEDS: ROCEPHIN 1 GM/50 ML D5W 1 GM/50 ML BAG IV SCH (08:34)
[2020-09-11] MEDS: SOLU-CORTEF 250 MG IVP SCH ×2 (08:34→21:00)
[2020-09-11] MEDS: ZITHROMAX PO SCH (08:35)
[2020-09-11] MEDS: CELEXA PO SCH (08:35)
[2020-09-11] MEDS: ATIVAN PO SCH ×2 (08:35→20:59)
[2020-09-11] MEDS: TENORMIN PO SCH (08:35)
[2020-09-11] MEDS: MULTIVITAMIN TABLET PO SCH (08:35)
[2020-09-11] MEDS: LIPITOR PO SCH (08:35)
--- NOTE | 2020-09-11 08:48 | CT ---
EXAM: CT Chest with and without contrast. HISTORY: Shortness of breath. COMPARISON: Radiograph [address] 10/28/2017. TECHNIQUE: Multiple axial images of the chest were obtained prior to and following intravenous admin istration of 75 mL Omnipaque 350, low osmolar. Images were reformatted in the sagittal and coronal p lanes. FINDINGS: Both common carotid arteries located posterior to the larynx/hypopharynx. Atherosclerotic calcifications present. Heart is enlarged. There is no pericardial effusion. Mediastinal lymph nodes measure up to 1 cm short axis in the right paratracheal region on series 5 im age 19, mildly decreased in size from prior study. No enlarged hilar or axillary lymph nodes identif ied. Left mastectomy changes noted. Ground-glass opacities seen throughout both lungs with subpleural reticular opacities and probable ar eas of traction bronchiectasis. Similar findings were present in 2018 although have mildly increased . There is no haven honeycombing, although evaluation is suboptimal without high resolution imaging. Previous left lower lobe nodule not identified currently. There is no pleural effusion or pneumoth orax identified. Small hiatal hernia noted. No acute abnormality is detected within the upper abdomen. Degenerative changes are present throughout the spine. IMPRESSION: 1. Nonspecific interstitial lung disease, mildly increased since 2018, not suggestive of UIP. 2. Mild mediastinal lymphadenopathy, decreased from 2018. 3. Cardiomegaly and atherosclerosis. All CT scans are performed using dose optimization techniques as appropriate to the performed exam an d include at least one of the following: Automated exposure control, adjustment of the mA and/or kV according t o size, and the use of iterative reconstruction technique.
[2020-09-11] MEDS ORDERED: LETROZOLE 2.5 MG PO SCH (09:00)
[2020-09-11] MEDS ORDERED: NON-FORMULARY MEDICATION (Multivitamin Tablet) PO SCH (09:00)
[2020-09-11] MEDS ORDERED: OMEPRAZOLE 10 MG PO SCH (09:00)
[2020-09-11] MEDS ORDERED: K-DUR PO SCH (12:30)
[2020-09-11] MEDS: LASIX TAB PO SCH (13:02)
[2020-09-11] MEDS: REQUIP PO SCH (20:59)
[2020-09-11] MEDS: REGLAN PO SCH (20:59)
[2020-09-11] MEDS: TAMOXIFEN 20 MG PO SCH (20:59)
[2020-09-11] MEDS: XARELTO PO SCH (21:00)
[2020-09-12] MEDS: VENTOLIN HFA (PER PUFF-WITH SPACER) IH SCH ×3 (05:10→19:06)
[2020-09-12 05:22] LABS: BASOPHILS % (AUTO) 0.1 % (0.0-3.0); HEMATOCRIT 39.3 % (37.0-47.0); HEMOGLOBIN 12.7 g/dl (12.0-16.0); IMMATURE GRANULOCYTE # (AUTO) 0.1 (0.0-1.0); IMMATURE GRANULOCYTE % (AUTO) 0.5 % (0.0-5.0); LYMPHOCYTES # (AUTO) 1.5 K/uL (0.60-3.4); LYMPHOCYTES % (AUTO) 9.8 (10.0-50.0); MEAN CORPUSCULAR HEMOGLOBIN 31.3 pg (27.0-31.0); MEAN CORPUSCULAR HGB CONC 32.3 (31.8-35.4); MEAN CORPUSCULAR VOLUME 96.8 fl (81.0-99.0); MONOCYTES # (AUTO) 0.5 K/uL (0.4-2.0); NEUTROPHILS # (AUTO) 13.1 K/ul (2.0-6.9); NEUTROPHILS % (AUTO) 86.6 % (42.2-75.2); PLATELET COUNT 252 10^3/uL (140-440); RDW COEFFICIENT OF VARIATION 12.9 % (11.6-14.8); RED BLOOD COUNT 4.06 10^6/ul (4.20-5.40); WHITE BLOOD COUNT 15.15 K/ul (4.6-10.2)
[2020-09-12 05:31] LABS: ALBUMIN 4.32 g/dL (3.5-5.0); ALKALINE PHOSPHATASE 93.1 U/L (53-141); BILIRUBIN,TOTAL 0.56 mg/dL (0.2-1.3); BLOOD UREA NITROGEN 11.7 mg/dL (7-17); CALCIUM 9.5 mg/dL (8.4-10.2); CARBON DIOXIDE 30.4 mmol/L (22-30.0); CHLORIDE 100.1 mmol/L (98-107); CREATININE 0.77 mg/dL (0.60-1.30); GLUCOSE 137.1 mg/dL (74-106); POTASSIUM 3.09 mmol/L (3.5-5.1); SODIUM 141.7 mmol/L (134.5-145); TOTAL PROTEIN 8.04 g/dL (6.3-8.2)
[2020-09-12 05:36] LABS: ASPARTATE AMINO TRANSFERASE 43.8 U/L (14-36)
[2020-09-12 05:37] LABS: ALANINE AMINOTRANSFERASE 26.2 U/L (0-35)
[2020-09-12] MEDS: LASIX TAB PO SCH (05:52)
[2020-09-12] MEDS: PRILOSEC PO SCH (05:52)
[2020-09-12] MEDS: SYNTHROID PO SCH (05:53)
[2020-09-12] MEDS ORDERED: MODERNA COVID-19 VACCINE (EUA) IM ONE (07:30)
--- NOTE | 2020-09-12 08:31 | PCM.PROG ---
Attending Provider: ATTENDING PROVIDER: Dr. JACQUIE WRAY This patient is seen with Lia Da Silva, Nurse Practitioner. DATE OF SERVICE: 09/12/20 SUBJECTIVE: This 79 year old /WHITE F was hospitalized 09/10/20. The patient is resting comfortably. Still complaining of shortness of breath with exertion. REVIEW OF SYSTEMS: CONSTITUTIONAL: No night sweats. No fatigue, malaise, lethargy. No fever or chills. HEENT: Eyes: No visual changes. No eye pain. No eye discharge. ENT: No runny nose. No epistaxis. No sinus pain. No odynophagia. No congestion. RESPIRATORY: Cough, no congestion. No hemoptysis. Shortness of breath. CARDIOVASCULAR: No angina symptoms. No CHF symptoms. No atypical chest pain for CAD. No palpitations. No orthopnea.. GASTROINTESTINAL: No abdominal pain. No nausea or vomiting. No diarrhea or constipation. No hematemesis. No hematochezia. GENITOURINARY: No urgency. No frequency. No dysuria. No hematuria. No obstructive symptoms. No discharge. No pain. No significant abnormal bleeding. MUSCULOSKELETAL: No musculoskeletal pain; no joint swelling. NEUROLOGICAL: Awake, alert, oriented to time, place and person. No headache. No neck pain. No syncope. No seizures. No dizziness. PSYCHIATRIC: Not anxious. No depression. No suicidal thoughts. No homicidal thoughts. SKIN: No rash. No lesions. No wounds. ENDOCRINE: No unexplained weight loss. No weight gain. HEMATOLOGIC/LYMPHATIC: No anemia. No purpura. No petechiae. No prolonged or excessive bleeding. No palpable lymph nodes. PHYSICAL EXAMINATION: GENERAL: The patient is awake, alert and oriented, sitting in bed in no distress. VITAL SIGNS: Temperature 98.0 F, Pulse 70, Respiratory Rate 20, BP 143/79, Pulse Ox 94% HEENT: Head normocephalic, atraumatic. Eyes: Extraocular muscles are intact. Pupils are equal, round and reactive to light and accommodation. Ears: No lesions. Nose appeared normal. Throat: No exudate or erythema. NECK: Supple. No JVD, no carotid bruit. No lymphadenopathy or thyromegaly. LUNGS: Diminished breath sounds. Clear to auscultation. Percussion note normal. Chest symmetrical. HEART: S1, S2, no S3. No murmurs. No cyanosis or clubbing. No ascites. Pulses: Dorsalis pedis and posterior tibial pulses +1 to +2 both sides. ABDOMEN: Soft. Non-tender. Bowel sounds active. No CVA tenderness. No mass felt. EXTREMITIES: No edema. Full range of motion of all extremities, equal. NEUROLOGIC: No focal deficit. Cranial nerves II through XII are grossly intact. No headache. No double vision. SKIN: Not dry. Intact. Turgor-normal. LYMPHATIC: No palpable lymph nodes/no lymphedema. MUSCULOSKELETAL: Normal joints with no swelling. Muscle tone is normal. LAB REVIEW: 09/12/20 05:04 09/12/20 05:04 09/12/20 05:04: Sodium 141.7, Potassium 3.09 L, Chloride 100.1, Carbon Dioxide 30.4 H, Anion Gap 14.29, BUN 11.7, Creatinine 0.77, Estimated GFR (MDRD) 72.00, BUN/Creatinine Ratio 15.19, Glucose 137.1 H, Calcium 9.50, Total Bilirubin 0.56, AST 43.8 H, ALT 26.2, Alkaline Phosphatase 93.1, Total Protein 8.04, Albumin 4.32, Globulin 3.72, Albumin/Globulin Ratio 1.16 09/12/20 05:04: WBC 15.15 H D, RBC 4.06 L, Hgb 12.7, Hct 39.3, MCV 96.8, MCH 31.3 H, MCHC 32.3, RDW Coeff of Karina 12.9, Plt Count 252 D, Immature Gran % (Auto) 0.5, Neut % (Auto) 86.6 H, Lymph % (Auto) 9.8 L, [place] % (Auto) 3.0, Eos % (Auto) 0.0, Baso % (Auto) 0.1, Neut # (Auto) 13.1 H, Lymph # (Auto) 1.5, [place] # (Auto) 0.5, Eos # (Auto) 0.0, Baso # (Auto) 0.0, Immature Gran # (Auto) 0.1 ASSESSMENT: Please see below. 1. Acute COPD exacerbation 2. Shortness of breath 3. Hypokalemia PLAN: 1. Potassium 20meq TID today 2. Discontinue Solu-Cortef 3. Prednisone 20mg BID 4. The patient is getting a COVID vaccination today. Plan and coordination of the patient's care discussed in the presence of Cable Armorer and nurse. SCRIBED BY: Dimsa GR scribed while in presence of service performed by Dr. Wray/Lia Da Silva APRN on 09/12/20 ([id number])
[2020-09-12] MEDS: SINGULAIR PO SCH (08:34)
[2020-09-12] MEDS: PREDNISONE PO SCH ×2 (08:34→17:22)
[2020-09-12] MEDS: TENORMIN PO SCH (08:34)
[2020-09-12] MEDS: ATIVAN PO SCH ×2 (08:34→20:22)
[2020-09-12] MEDS: K-DUR PO SCH ×3 (08:35→17:22)
[2020-09-12] MEDS: LIPITOR PO SCH (08:35)
[2020-09-12] MEDS: ROCEPHIN 1 GM/50 ML D5W 1 GM/50 ML BAG IV SCH (08:35)
[2020-09-12] MEDS: ZITHROMAX PO SCH (08:35)
[2020-09-12] MEDS: SYMBICORT 160-4.5 MCG INHALER IH SCH ×2 (08:35→20:22)
[2020-09-12] MEDS: CELEXA PO SCH (08:35)
[2020-09-12] MEDS: MULTIVITAMIN TABLET PO SCH (08:35)
[2020-09-12] MEDS ORDERED: TYLENOL PO PRN (19:04)
[2020-09-12] MEDS: TAMOXIFEN 20 MG PO SCH (20:22)
[2020-09-12] MEDS: REQUIP PO SCH (20:22)
[2020-09-12] MEDS: REGLAN PO SCH (20:23)
[2020-09-12] MEDS: XARELTO PO SCH (20:23)
[2020-09-13] MEDS: VENTOLIN HFA (PER PUFF-WITH SPACER) IH SCH ×4 (04:52→19:50)
[2020-09-13 05:01] LABS: BASOPHILS % (AUTO) 0.1 % (0.0-3.0); EOSINOPHILS % (AUTO) 0.1 % (0.0-7.0); HEMATOCRIT 38.6 % (37.0-47.0); HEMOGLOBIN 12.6 g/dl (12.0-16.0); IMMATURE GRANULOCYTE # (AUTO) 0.1 (0.0-1.0); IMMATURE GRANULOCYTE % (AUTO) 0.5 % (0.0-5.0); LYMPHOCYTES # (AUTO) 2.4 K/uL (0.60-3.4); MEAN CORPUSCULAR HEMOGLOBIN 31.7 pg (27.0-31.0); MEAN CORPUSCULAR HGB CONC 32.6 (31.8-35.4); MEAN CORPUSCULAR VOLUME 97.2 fl (81.0-99.0); MONOCYTES # (AUTO) 0.9 K/uL (0.4-2.0); MONOCYTES % (AUTO) 5.5 (0-10); NEUTROPHILS # (AUTO) 12.8 K/ul (2.0-6.9); NEUTROPHILS % (AUTO) 78.8 % (42.2-75.2); PLATELET COUNT 229 10^3/uL (140-440); RDW COEFFICIENT OF VARIATION 12.9 % (11.6-14.8); RED BLOOD COUNT 3.97 10^6/ul (4.20-5.40); WHITE BLOOD COUNT 16.28 K/ul (4.6-10.2)
[2020-09-13 05:12] LABS: ALBUMIN 4.31 g/dL (3.5-5.0); ALKALINE PHOSPHATASE 92.6 U/L (53-141); ASPARTATE AMINO TRANSFERASE 35.7 U/L (14-36); BILIRUBIN,TOTAL 0.6 mg/dL (0.2-1.3); BLOOD UREA NITROGEN 13.1 mg/dL (7-17); CALCIUM 9.62 mg/dL (8.4-10.2); CARBON DIOXIDE 32.7 mmol/L (22-30.0); CHLORIDE 98.3 mmol/L (98-107); CREATININE 0.83 mg/dL (0.60-1.30); GLUCOSE 119.2 mg/dL (74-106); POTASSIUM 3.69 mmol/L (3.5-5.1); SODIUM 141.4 mmol/L (134.5-145)
[2020-09-13 05:19] LABS: ALANINE AMINOTRANSFERASE 20.7 U/L (0-35)
[2020-09-13] MEDS: LASIX TAB PO SCH (05:39)
[2020-09-13] MEDS: PRILOSEC PO SCH (05:39)
[2020-09-13] MEDS: SYNTHROID PO SCH (05:39)
--- NOTE | 2020-09-13 08:16 | ECHO2D ---
Date of Exam: 09/11/2020 Ordering Physician: DR. JACQUIE WRAY Room #: 109 Reason for Echo: RESPIRATORY FAILURE, CARDIOMEGALY, HTN, CHF M-Mode Normal Adult Results LV Dimensions Normal Adult Results AoV Opening excursions >1.6 >1.6 LVEDD-base- 3.5-5.8 5.1 Ao root dimensions 2.0-3.7 3.3 LVESD-base- 3.1-4.6 L. Atrium dimensions 1.9-3.8 4.4 Post. Wall thickness 0.8-1.1 1.1 IV septum (thickness) 0.7-1.2 1.2 Post. Wall excursion 0.72-1.3 NORMAL Septal motion NORMAL Systolic motion R. Ventricular cavity 1.5-2.0 3.5 LVEF 60% 69% Paradoxical septal wall motion NORMAL 2-D : 2-D M Mode Echocardiogram was performed using apical four chamber and left parasternal long and short axis views. Mitral, tricuspid and aortic valves appear to be normal. Contractility of the left ventricle seems to be normal, so is the cavity size. ENLARGED LEFT ATRIAL CAVITY AND RIGHT VENTRICLE CAVITY. CALCIFIC AORTIC VALVE LEAFLETS. There is no pericardial effusion. There is no thrombus noted in the left ventricle or left atrial cavity. No mitral valve prolapse noted. M-MODE: MV: CALCIFIC MITRAL VALVE ANNULUS AV: CALCIFIC AORTIC VALVES TV: NORMAL PV: CHAMBER SIZE: ENLARGED LEFT ATRIAL AND RIGHT VENTRICLE CAVIITES WALL MOTION: NORMAL PERICARDIUM: NORMAL INTERPRETATION: 1. LEFT VENTRICULAR HYPERTROPHY 2. ENLARGED LEFT ATRIAL AND RIGHT VENTRICLE CAVITIES 3. CALCIFIC AORTIC VALVE 4. CALCIFIC MITRAL VALVE MTDD
[2020-09-13] MEDS: K-DUR PO SCH ×3 (08:37→16:50)
[2020-09-13] MEDS: ATIVAN PO SCH ×2 (08:37→20:18)
[2020-09-13] MEDS: CELEXA PO SCH (08:38)
[2020-09-13] MEDS: ROCEPHIN 1 GM/50 ML D5W 1 GM/50 ML BAG IV SCH (08:38)
[2020-09-13] MEDS: TENORMIN PO SCH (08:38)
[2020-09-13] MEDS: LIPITOR PO SCH (08:38)
[2020-09-13] MEDS: MULTIVITAMIN TABLET PO SCH (08:38)
[2020-09-13] MEDS: PREDNISONE PO SCH ×2 (08:38→16:50)
[2020-09-13] MEDS: SINGULAIR PO SCH (08:38)
[2020-09-13] MEDS: SYMBICORT 160-4.5 MCG INHALER IH SCH ×2 (08:40→20:40)
--- NOTE | 2020-09-13 09:06 | PCM.PROG ---
Attending Provider: ATTENDING PROVIDER: Dr. JACQUIE WRAY DATE OF SERVICE: 09/13/20 SUBJECTIVE: This 79 year old /WHITE F was hospitalized 09/10/20 with acute COPD exacerbation. The patient has history of chronic respiratory failure and is on home oxygen for 12 hours. The patient is being treated with antibiotics, steroids and inhalers. Diuretic has been added. The patient's echo showed LVH with normal LV contractility and enlarged left atrial cavity. REVIEW OF SYSTEMS: CONSTITUTIONAL: No night sweats. No fatigue, malaise, lethargy. No fever or chills. HEENT: Eyes: No visual changes. No eye pain. No eye discharge. ENT: No runny nose. No epistaxis. No sinus pain. No odynophagia. No congestion. RESPIRATORY: Cough is chronic, no congestion. No hemoptysis. Shortness of breath with minimal exertion with some improvement. The patient has pulmonary fibrosis which has worsened as before by CT scan. CARDIOVASCULAR: No angina symptoms. No CHF symptoms. No atypical chest pain for CAD. No palpitations. No orthopnea.. GASTROINTESTINAL: No abdominal pain. No nausea or vomiting. No diarrhea or constipation. No hematemesis. No hematochezia. BMI 34 strongly advised to lose weight. GENITOURINARY: No urgency. No frequency. No dysuria. No hematuria. No obstructive symptoms. No discharge. No pain. No significant abnormal bleeding. MUSCULOSKELETAL: No musculoskeletal pain; no joint swelling. NEUROLOGICAL: Awake, alert, oriented to time, place and person. No headache. No neck pain. No syncope. No seizures. No dizziness. PSYCHIATRIC: Not anxious. No depression. No suicidal thoughts. No homicidal thoughts. SKIN: No rash. No lesions. No wounds. ENDOCRINE: No unexplained weight loss. No weight gain. HEMATOLOGIC/LYMPHATIC: No anemia. No purpura. No petechiae. No prolonged or excessive bleeding. No palpable lymph nodes. PHYSICAL EXAMINATION: GENERAL: The patient is awake, alert and oriented, sitting in bed in no distress. VITAL SIGNS: Temperature 99.0 F, Pulse 83, Respiratory Rate 18, BP 132/82, Pulse Ox 94% HEENT: Head normocephalic, atraumatic. Eyes: Extraocular muscles are intact. Pupils are equal, round and reactive to light and accommodation. Ears: No lesions. Nose appeared normal. Throat: No exudate or erythema. NECK: Supple. No JVD, no carotid bruit. No lymphadenopathy or thyromegaly. LUNGS: Decreased breath sounds. Clear to auscultation. Percussion note normal. Chest symmetrical. HEART: S1, S2, no S3. No murmurs. No cyanosis or clubbing. No ascites. Pulses: Dorsalis pedis and posterior tibial pulses +1 to +2 both sides. ABDOMEN: Soft. Non-tender. Bowel sounds active. No CVA tenderness. No mass felt. EXTREMITIES: No edema. Full range of motion of all extremities, equal. NEUROLOGIC: No focal deficit. Cranial nerves II through XII are grossly intact. No headache, no double vision or headache. SKIN: Warm and dry. Intact. Turgor-normal. LYMPHATIC: No palpable lymph nodes/no lymphedema. MUSCULOSKELETAL: Normal joints with no swelling. Muscle tone is normal. LAB REVIEW: 09/13/20 04:55 09/13/20 04:55 09/13/20 04:55: Sodium 141.4, Potassium 3.69, Chloride 98.3, Carbon Dioxide 32.7 H, Anion Gap 14.09, BUN 13.1, Creatinine 0.83, Estimated GFR (MDRD) 66.00, BUN/Creatinine Ratio 15.78, Glucose 119.2 H, Calcium 9.62, Total Bilirubin 0.60, AST 35.7, ALT 20.7, Alkaline Phosphatase 92.6, Total Protein 8.00, Albumin 4.31, Globulin 3.69, Albumin/Globulin Ratio 1.16 09/13/20 04:55: WBC 16.28 H, RBC 3.97 L, Hgb 12.6, Hct 38.6, MCV 97.2, MCH 31.7 H, MCHC 32.6, RDW Coeff of Karina 12.9, Plt Count 229, Immature Gran % (Auto) 0.5, Neut % (Auto) 78.8 H, Lymph % (Auto) 15.0, [place] % (Auto) 5.5, Eos % (Auto) 0.1, Baso % (Auto) 0.1, Neut # (Auto) 12.8 H, Lymph # (Auto) 2.4, [place] # (Auto) 0.9, Eos # (Auto) 0.0, Baso # (Auto) 0.0, Immature Gran # (Auto) 0.1 ASSESSMENT: Please see below. 1. COPD exacerbation seem to be improving with steroids, antibiotics, oxygen supplements and inhalers PLAN: 1. Continue the same treatment 2. Encouraged to eat 3. Encouraged to lose weight 4. Needs to increase activity at home 5. Three step to be done for 24 hours home oxygen. Plan and coordination of the patient's care discussed in the presence of Marbleizing Machine Tender and nurse. CONDITION: STABLE PROGNOSIS: GUARDED SCRIBED BY: Dimas GR scribed while in presence of service performed by Dr. JACQUIE WRAY on 09/13/20 ([id number])
[2020-09-13] MEDS: VISTARIL PO PRN ×2 (09:46→16:53)
[2020-09-13] MEDS: REGLAN PO SCH (20:18)
[2020-09-13] MEDS: XARELTO PO SCH (20:18)
[2020-09-13] MEDS: REQUIP PO SCH (20:18)
[2020-09-13] MEDS: TAMOXIFEN 20 MG PO SCH (20:39)
[2020-09-14] MEDS: VENTOLIN HFA (PER PUFF-WITH SPACER) IH SCH ×4 (04:50→19:10)
[2020-09-14 05:21] LABS: BASOPHILS % (AUTO) 0.1 % (0.0-3.0); EOSINOPHILS % (AUTO) 0.4 % (0.0-7.0); HEMATOCRIT 36.1 % (37.0-47.0); HEMOGLOBIN 11.6 g/dl (12.0-16.0); IMMATURE GRANULOCYTE # (AUTO) 0.1 (0.0-1.0); IMMATURE GRANULOCYTE % (AUTO) 0.5 % (0.0-5.0); LYMPHOCYTES # (AUTO) 1.6 K/uL (0.60-3.4); LYMPHOCYTES % (AUTO) 14.3 (10.0-50.0); MEAN CORPUSCULAR HEMOGLOBIN 30.9 pg (27.0-31.0); MEAN CORPUSCULAR HGB CONC 32.1 (31.8-35.4); MEAN CORPUSCULAR VOLUME 96.3 fl (81.0-99.0); MONOCYTES # (AUTO) 0.6 K/uL (0.4-2.0); MONOCYTES % (AUTO) 5.1 (0-10); NEUTROPHILS # (AUTO) 8.8 K/ul (2.0-6.9); NEUTROPHILS % (AUTO) 79.6 % (42.2-75.2); PLATELET COUNT 228 10^3/uL (140-440); RED BLOOD COUNT 3.75 10^6/ul (4.20-5.40); WHITE BLOOD COUNT 11.07 K/ul (4.6-10.2)
[2020-09-14 05:38] LABS: ALBUMIN 3.78 g/dL (3.5-5.0); ALKALINE PHOSPHATASE 81.8 U/L (53-141); ASPARTATE AMINO TRANSFERASE 28.5 U/L (14-36); BILIRUBIN,TOTAL 0.61 mg/dL (0.2-1.3); BLOOD UREA NITROGEN 15.5 mg/dL (7-17); CALCIUM 9.31 mg/dL (8.4-10.2); CARBON DIOXIDE 37.2 mmol/L (22-30.0); CHLORIDE 95.7 mmol/L (98-107); CREATININE 0.84 mg/dL (0.60-1.30); GLUCOSE 100.1 mg/dL (74-106); POTASSIUM 4.11 mmol/L (3.5-5.1); SODIUM 138.7 mmol/L (134.5-145); TOTAL PROTEIN 7.09 g/dL (6.3-8.2)
[2020-09-14] MEDS: LASIX TAB PO SCH (05:44)
[2020-09-14] MEDS: PRILOSEC PO SCH (05:45)
[2020-09-14] MEDS: SYNTHROID PO SCH (05:45)
[2020-09-14] MEDS: CELEXA PO SCH (09:04)
[2020-09-14] MEDS: K-DUR PO SCH ×3 (09:04→17:13)
[2020-09-14] MEDS: PREDNISONE PO SCH ×2 (09:05→17:13)
[2020-09-14] MEDS: LIPITOR PO SCH (09:05)
[2020-09-14] MEDS: MULTIVITAMIN TABLET PO SCH (09:05)
[2020-09-14] MEDS: TENORMIN PO SCH (09:05)
[2020-09-14] MEDS: ATIVAN PO SCH ×2 (09:05→20:53)
[2020-09-14] MEDS: SINGULAIR PO SCH (09:05)
[2020-09-14] MEDS: VISTARIL PO PRN ×2 (09:12→20:53)
[2020-09-14] MEDS: SYMBICORT 160-4.5 MCG INHALER IH SCH ×2 (09:13→20:55)
[2020-09-14] MEDS: ROCEPHIN 1 GM/50 ML D5W 1 GM/50 ML BAG IV SCH (10:59)
[2020-09-14] MEDS ORDERED: ZOFRAN TAB PO PRN (12:41)
[2020-09-14] MEDS: KEFLEX PO SCH ×2 (12:48→20:53)
[2020-09-14] MEDS: PHENERGAN WITH CODEINE 6.25/10 MG/5 ML PO PRN ×2 (12:49→20:54)
[2020-09-14] MEDS: REGLAN PO SCH (20:54)
[2020-09-14] MEDS: REQUIP PO SCH (20:54)
[2020-09-14] MEDS: XARELTO PO SCH (20:55)
[2020-09-14] MEDS: TAMOXIFEN 20 MG PO SCH (20:56)
[2020-09-15] MEDS: VENTOLIN HFA (PER PUFF-WITH SPACER) IH SCH ×4 (04:55→19:59)
[2020-09-15 05:18] LABS: BASOPHILS % (AUTO) 0.1 % (0.0-3.0); EOSINOPHILS % (AUTO) 0.1 % (0.0-7.0); HEMATOCRIT 35.9 % (37.0-47.0); HEMOGLOBIN 11.8 g/dl (12.0-16.0); IMMATURE GRANULOCYTE # (AUTO) 0.1 (0.0-1.0); IMMATURE GRANULOCYTE % (AUTO) 0.5 % (0.0-5.0); LYMPHOCYTES # (AUTO) 1.2 K/uL (0.60-3.4); LYMPHOCYTES % (AUTO) 11.4 (10.0-50.0); MEAN CORPUSCULAR HEMOGLOBIN 31.6 pg (27.0-31.0); MEAN CORPUSCULAR HGB CONC 32.9 (31.8-35.4); MEAN CORPUSCULAR VOLUME 96.2 fl (81.0-99.0); MONOCYTES # (AUTO) 0.5 K/uL (0.4-2.0); MONOCYTES % (AUTO) 4.9 (0-10); NEUTROPHILS # (AUTO) 8.6 K/ul (2.0-6.9); PLATELET COUNT 217 10^3/uL (140-440); RDW COEFFICIENT OF VARIATION 12.6 % (11.6-14.8); RED BLOOD COUNT 3.73 10^6/ul (4.20-5.40); WHITE BLOOD COUNT 10.36 K/ul (4.6-10.2)
[2020-09-15 05:36] LABS: ALANINE AMINOTRANSFERASE 18.1 U/L (0-35); ALBUMIN 3.69 g/dL (3.5-5.0); ASPARTATE AMINO TRANSFERASE 26.8 U/L (14-36); BILIRUBIN,TOTAL 0.63 mg/dL (0.2-1.3); BLOOD UREA NITROGEN 19.2 mg/dL (7-17); CALCIUM 9.43 mg/dL (8.4-10.2); CHLORIDE 94.7 mmol/L (98-107); CREATININE 0.92 mg/dL (0.60-1.30); GLUCOSE 113.7 mg/dL (74-106); POTASSIUM 4.85 mmol/L (3.5-5.1); SODIUM 136.7 mmol/L (134.5-145); TOTAL PROTEIN 6.96 g/dL (6.3-8.2)
[2020-09-15] MEDS: PRILOSEC PO SCH (05:38)
[2020-09-15] MEDS: LASIX TAB PO SCH (05:38)
[2020-09-15] MEDS: SYNTHROID PO SCH (05:38)
[2020-09-15] MEDS: PREDNISONE PO SCH ×2 (09:03→16:51)
[2020-09-15] MEDS: CELEXA PO SCH (09:03)
[2020-09-15] MEDS: K-DUR PO SCH ×3 (09:03→16:51)
[2020-09-15] MEDS: TENORMIN PO SCH (09:03)
[2020-09-15] MEDS: MULTIVITAMIN TABLET PO SCH (09:04)
[2020-09-15] MEDS: KEFLEX PO SCH ×2 (09:04→20:57)
[2020-09-15] MEDS: ATIVAN PO SCH ×2 (09:04→20:56)
[2020-09-15] MEDS: SINGULAIR PO SCH (09:04)
[2020-09-15] MEDS: LIPITOR PO SCH (09:04)
[2020-09-15] MEDS: SYMBICORT 160-4.5 MCG INHALER IH SCH ×2 (09:06→21:01)
[2020-09-15] MEDS: PHENERGAN WITH CODEINE 6.25/10 MG/5 ML PO PRN (12:27)
[2020-09-15] MEDS: VISTARIL PO PRN (15:44)
[2020-09-15] MEDS: REGLAN PO SCH (20:57)
[2020-09-15] MEDS: REQUIP PO SCH (20:57)
[2020-09-15] MEDS: XARELTO PO SCH (20:58)
[2020-09-15] MEDS: TAMOXIFEN 20 MG PO SCH (21:01)
[2020-09-16 04:30] LABS: BASOPHILS % (AUTO) 0.1 % (0.0-3.0); EOSINOPHILS % (AUTO) 0.2 % (0.0-7.0); HEMATOCRIT 35.9 % (37.0-47.0); HEMOGLOBIN 11.9 g/dl (12.0-16.0); IMMATURE GRANULOCYTE # (AUTO) 0.1 (0.0-1.0); IMMATURE GRANULOCYTE % (AUTO) 0.5 % (0.0-5.0); LYMPHOCYTES # (AUTO) 1.2 K/uL (0.60-3.4); LYMPHOCYTES % (AUTO) 9.5 (10.0-50.0); MEAN CORPUSCULAR HEMOGLOBIN 31.7 pg (27.0-31.0); MEAN CORPUSCULAR HGB CONC 33.1 (31.8-35.4); MEAN CORPUSCULAR VOLUME 95.7 fl (81.0-99.0); MONOCYTES # (AUTO) 0.8 K/uL (0.4-2.0); MONOCYTES % (AUTO) 6.1 (0-10); NEUTROPHILS # (AUTO) 10.7 K/ul (2.0-6.9); NEUTROPHILS % (AUTO) 83.6 % (42.2-75.2); PLATELET COUNT 245 10^3/uL (140-440); RDW COEFFICIENT OF VARIATION 12.5 % (11.6-14.8); RED BLOOD COUNT 3.75 10^6/ul (4.20-5.40); WHITE BLOOD COUNT 12.79 K/ul (4.6-10.2)
[2020-09-16 04:41] LABS: ALANINE AMINOTRANSFERASE 20.1 U/L (0-35); ALBUMIN 3.72 g/dL (3.5-5.0); BILIRUBIN,TOTAL 0.48 mg/dL (0.2-1.3); BLOOD UREA NITROGEN 22.5 mg/dL (7-17); CALCIUM 9.18 mg/dL (8.4-10.2); CARBON DIOXIDE 37.5 mmol/L (22-30.0); CHLORIDE 95.6 mmol/L (98-107); CREATININE 0.94 mg/dL (0.60-1.30); GLUCOSE 107.4 mg/dL (74-106); POTASSIUM 4.64 mmol/L (3.5-5.1); SODIUM 135.5 mmol/L (134.5-145); TOTAL PROTEIN 6.92 g/dL (6.3-8.2)
[2020-09-16] MEDS: VENTOLIN HFA (PER PUFF-WITH SPACER) IH SCH ×2 (04:44→10:13)
[2020-09-16 05:50] VITALS: BP 148/90; TEMP 98
[2020-09-16] MEDS: PRILOSEC PO SCH (05:58)
[2020-09-16] MEDS: LASIX TAB PO SCH (05:58)
[2020-09-16] MEDS: SYNTHROID PO SCH (05:58)
[2020-09-16] MEDS: VISTARIL PO PRN (06:04)
[2020-09-16] MEDS: KEFLEX PO SCH (09:12)
[2020-09-16] MEDS: LIPITOR PO SCH (09:12)
[2020-09-16] MEDS: PREDNISONE PO SCH (09:13)
[2020-09-16] MEDS: MULTIVITAMIN TABLET PO SCH (09:13)
[2020-09-16] MEDS: ATIVAN PO SCH (09:13)
[2020-09-16] MEDS: K-DUR PO SCH (09:13)
[2020-09-16] MEDS: SINGULAIR PO SCH (09:13)
[2020-09-16] MEDS: TENORMIN PO SCH (09:13)
[2020-09-16] MEDS: CELEXA PO SCH (09:13)
[2020-09-16] MEDS: SYMBICORT 160-4.5 MCG INHALER IH SCH (09:15)
--- NOTE | 2020-09-16 10:07 | CM.DICTOOL ---
ADMISSION: 09/10/20 12:22 DISCHARGE: SEPTEMBER 16, 2020 DATE OF SERVICE: 09/16/20 FINAL DIAGNOSIS ACUTE COPD EXACERBATION ACUTE PNEUMONITIS HYPOKALEMIA HX: CHRONIC RESPIRATORY FAILURE COPD ASTHMA HYPERTENSION DYSLIPIDEMIA HYPOTHYROIDISM OBESITY ANEMIA GERD DVT, RIGHT PERONEAL LUMBAR RADICULOPATHY CERVICAL RADICULOPATHY OSTEOARTHRITIS, RIGHT KNEE CERVICAL DJD FIBROMYALGIA CANCER, LEFT BREAST CANCER, UTERINE MASTECTOMY, LEFT (DR. NAPIER, 2018) CHOLECYSTECTOMY LAST VITALS Temp Pulse Resp BP Pulse Ox 98.0 F 83 18 148/90 H 96 09/16/20 05:49 09/16/20 05:49 09/16/20 05:49 09/16/20 05:49 09/16/20 05:49 TAKE THESE MEDICATIONS AT HOME Albuterol Sulfate (Albuterol Sulfate (Ventolin Hfa) 18 Gm 1 Puff With Spacer) 2 puff IH RTQID [facility] -- ( NEW) Last Admin: 09/16/20 04:44 Dose: 2 puff Documented by: Atenolol (Atenolol 50 Mg Tablet) 50 mg PO DAILY [facility] Last Admin: 09/15/20 09:03 Dose: 50 mg Documented by: Atorvastatin Calcium (Atorvastatin Calcium 10 Mg Tablet) 10 mg PO DAILY [facility] Last Admin: 09/15/20 09:04 Dose: 10 mg Documented by: Budesonide/Formoterol Fumarate (Budesonide/Formoterol Fumarate 160/4.5 Mcg Inhaler) 2 puff IH BID [facility] -- ( NEW) Last Admin: 09/15/20 21:01 Dose: 2 puff Documented by: Cephalexin (Cephalexin 500 Mg Capsule) 500 mg PO Q12HR [facility] X 5 MORE DAYS -- ( NEW) Stop: 09/17/20 12:29 Last Admin: 09/15/20 20:57 Dose: 500 mg Documented by: Citalopram Hydrobromide (Citalopram Hydrobromide 20 Mg Tablet) 20 mg PO DAILY [facility] Last Admin: 09/15/20 09:03 Dose: 20 mg Documented by: Furosemide (Furosemide 20 Mg Tablet) 20 mg PO QDAC [facility] -- ( NEW) Last Admin: 09/16/20 05:58 Dose: 20 mg Documented by: Levothyroxine Sodium (Levothyroxine Sodium 75 Mcg Tablet) 75 mcg PO QDAC [facility] Last Admin: 09/16/20 05:58 Dose: 75 mcg Documented by: Lorazepam (Lorazepam 1 Mg Tablet) 1 mg PO BID [facility] Last Admin: 09/15/20 20:56 Dose: 1 mg Documented by: Metoclopramide HCl (Metoclopramide Hcl 10 Mg Tablet) 10 mg PO BEDTIME [facility] Last Admin: 09/15/20 20:57 Dose: 10 mg Documented by: Montelukast Sodium (Montelukast Sodium 10 Mg Tablet) 10 mg PO DAILY [facility] Last Admin: 09/15/20 09:04 Dose: 10 mg Documented by: Multivitamins (Multivitamin 1 Tab) 1 tab PO DAILY [facility] Last Admin: 09/15/20 09:04 Dose: 1 tab Documented by: Non-Formulary Medication (Lactobacillus Acidophilus [Probiotic]) 1 cap PO TID PRN PRN Reason: AT PATIENT DISCRETION Non-Formulary Medication (Tamoxifen) 20 mg PO BEDTIME ASAEL Last Admin: 09/15/20 21:01 Dose: 20 mg Documented by: Omeprazole (Omeprazole 20 Mg Capsule.Dr) 20 mg PO QDAC [facility] Last Admin: 09/16/20 05:58 Dose: 20 mg Documented by: Potassium Chloride (Potassium Chloride 20 Meq Tab) 20 meq PO DAILY [facility] -- ( NEW) Last Admin: 09/15/20 16:51 Dose: 20 meq Documented by: Prednisone (Prednisone 20 Mg Tablet) 20 mg PO BIDWM ASAEL X 3 MORE DAYS, THEN 20 MG PO DAILL X 2 DAYS THEN STOP -- ( NEW) Last Admin: 09/15/20 16:51 Dose: 20 mg Documented by: Promethazine HCl/Codeine (Promethazine/Codeine Syrup 6.25/10 Mg/5 Ml Disp.Syringe) 10 ml PO Q6H PRN -- ( NEW) PRN Reason: Cough Last Admin: 09/15/20 12:27 Dose: 10 ml Documented by: Rivaroxaban (Rivaroxaban 10 Mg Tablet) 20 mg PO BEDTIME [facility] Last Admin: 09/15/20 20:58 Dose: 20 mg Documented by: Ropinirole HCl (Ropinirole Hcl 1 Mg Tablet) 1 mg PO BEDTIME [facility]SAEL Last Admin: 09/15/20 20:57 Dose: 1 mg Documented by: VISTARIL 25 MG PO TID PRN ALLERGIES No Known Allergies Allergy (Verified 02/23/20 12:23) DISCONTINUED MEDICATIONS NONE NEW PRESCRIPTIONS: ALBUTEROL SULFATE (Ventolin Hfa) 18 Gm ) 2 puff IH QID [facility] BUDESONIDE/FORMOTEROL FUMARATE ( SYMBICORT ) (160/4.5 Mcg Inhaler) 2 puff IH BID ASAEL CEPHALEXIN 500 mg PO Q12HR X 5 MORE DAYS FUROSEMIDE 20 mg PO QDAC [facility] POTASSIUM CHLORIDE 20 meq PO DAILY WM [facility] PREDISONE 20 mg PO BIDWM ASAEL X 3 MORE DAYS, THEN 20 MG PO DAILY X 2 DAYS THEN STOP PROMETHAZINE HCL/ CODEINE (6.25/10 Mg/5 Ml) 10 ml PO Q6H PRN SMOKING: N/A DISEASE SPECIFIC EDUCATION: COPD HOME O2 BLEEDING PRECAUTIONS PNEUMONIA COVID LAB REVIEW: 09/16/20 04:15 09/16/20 04:15 09/16/20 04:15: Sodium 135.5, Potassium 4.64, Chloride 95.6 L, Carbon Dioxide 37.5 H, Anion Gap 7.04, BUN 22.5 H, Creatinine 0.94, Estimated GFR (MDRD) 57.00, BUN/Creatinine Ratio 23.93, Glucose 107.4 H, Calcium 9.18, Total Bilirubin 0.48, AST 25.0, ALT 20.1, Alkaline Phosphatase 86.0, Total Protein 6.92, Albumin 3.72, Globulin 3.20, Albumin/Globulin Ratio 1.16 09/16/20 04:15: WBC 12.79 H, RBC 3.75 L, Hgb 11.9 L, Hct 35.9 L, MCV 95.7, MCH 31.7 H, MCHC 33.1, RDW Coeff of Karina 12.5, Plt Count 245, Immature Gran % (Auto) 0.5, Neut % (Auto) 83.6 H, Lymph % (Auto) 9.5 L, Bollinger % (Auto) 6.1, Eos % (Auto) 0.2, Baso % (Auto) 0.1, Neut # (Auto) 10.7 H, Lymph # (Auto) 1.2, Bollinger # (Auto) 0.8, Eos # (Auto) 0.0, Baso # (Auto) 0.0, Immature Gran # (Auto) 0.1 PLAN: DISCHARGE HOME: SEPTEMBER 16, 2020 ACTIVITY: UP IN HOME FREQUENTLY INDEPENDENTLY WITH REST PERIODS STAY HOME UNTIL MD FOLLOW UP IF POSSIBLE SOCIAL DISTANCING IF OUT IN THE PUBLIC DIET: REGULAR. USE ENSURE AT HOME 1 - 2 TIMES A DAY ONLY IF NOT EATING WELL. FOLLOW-UP: SEE DR. WRAY/ SANA POST APRN/ BANDAR DURANT APRN IN THE OFFICE ON SEPTEMBER 23, 2020 @ 1015 AM HOME OXYGEN: PROVIDED PER [facility] [phone]. 3 LITERS A MINUTE PER NASAL CANNULA CONTINOUS FOLLOW HOME OXYGEN PRECAUTIONS. CODE STATUS: DO NOT RESUSCITATE MRS PARKER REMAINS ALERT AND ORIENTED X 4. SHE CONTINUES TO REPORT THAT SHE IS SOA AT REST AND GETS WORSE WITH ACTIVITY. SHE REQUIRES O2 AT 3 L/M PER N/C CONTINUOS AND IS GOING HOME WITH IT. SHE HAD BEEN USING O2 AT NIGHT ONLY AT HOME. SHE IS UP AND AMBULATING INDEPENDENTLY AND STEADY. SKIN IS WARM AND DRY AND INTACT. INITIALLY HER APPETITE WAS POOR. SHE NOW HAS A GOOD NUTRITIONAL AND FLUID INTAKE. CONTINENT OF BOWEL AND BLADDER. HER LAST BM WAS 09/13/2020. MD SANA LOVING APRN ALYCE HANNAN, APRN
--- NOTE | 2020-09-16 10:45 | PCM.PROG ---
Attending Provider: ATTENDING PROVIDER: Dr. JACQUIE MEJÍA This patient is seen with Lia Da Silva, Nurse Practitioner. DATE OF SERVICE: 09/16/20 SUBJECTIVE: This 79 year old /WHITE F was hospitalized 09/10/20. Resting comfortably in bed. She has been eating well. She is still on 3L. Reports shor tness of breath with exertion. REVIEW OF SYSTEMS: CONSTITUTIONAL: No night sweats. No fatigue, malaise, lethargy. No fever or chills. HEENT: Eyes: No visual changes. No eye pain. No eye discharge. ENT: No runny nose. No epistaxis. No sinus pain. No odynophagia. No congestion. RESPIRATORY: Cough. Shortness of breath. No hemoptysis. CARDIOVASCULAR: No angina symptoms. No CHF symptoms. No atypical chest pain for CAD. No palpitations. No orthopnea.. GASTROINTESTINAL: No abdominal pain. No nausea or vomiting. No diarrhea or constipation. No hematemesis. No hematochezia. GENITOURINARY: No urgency. No frequency. No dysuria. No hematuria. No obstructive symptoms. No discharge. No pain. No significant abnormal bleeding. MUSCULOSKELETAL: No musculoskeletal pain; no joint swelling. NEUROLOGICAL: Awake, alert, oriented to time, place and person. No headache. No neck pain. No syncope. No seizures. No dizziness. PSYCHIATRIC: Not anxious. No depression. No suicidal thoughts. No homicidal thoughts. SKIN: No rash. No lesions. No wounds. ENDOCRINE: No unexplained weight loss. No weight gain. HEMATOLOGIC/LYMPHATIC: No anemia. No purpura. No petechiae. No prolonged or excessive bleeding. No palpable lymph nodes. PHYSICAL EXAMINATION: GENERAL: The patient is awake, alert and oriented, lying/sitting in bed in no distress. VITAL SIGNS: Temperature 98.0 F, Pulse 83, Respiratory Rate 18, BP 148/90, Pulse Ox 96% HEENT: Head normocephalic, atraumatic. Eyes: Extraocular muscles are intact. Pupils are equal, round and reactive to light and accommodation. Ears: No lesions. Nose appeared normal. Throat: No exudate or erythema. NECK: Supple. No JVD, no carotid bruit. No lymphadenopathy or thyromegaly. LUNGS: Diminished breath sounds. Clear to auscultation. Percussion note normal. Chest symmetrical. HEART: S1, S2, no S3. No murmurs. No cyanosis or clubbing. No ascites. Pulses: Dorsalis pedis and posterior tibial pulses +1 to +2 both sides. ABDOMEN: Soft. Non-tender. Bowel sounds active. No CVA tenderness. No mass fe lt. EXTREMITIES: No edema. Full range of motion of all extremities, equal. NEUROLOGIC: No focal deficit. Cranial nerves II through XII are grossly intact. No headache. No double vision. SKIN: Not dry. Intact. Turgor-normal. LYMPHATIC: No palpable lymph nodes/no lymphedema. MUSCULOSKELETAL: Normal joints with no swelling. Muscle tone is normal. LAB REVIEW: 09/16/20 04:15 09/16/20 04:15 09/16/20 04:15: Sodium 135.5, Potassium 4.64, Chloride 95.6 L, Carbon Dioxide 37.5 H, Anion Gap 7.04, BUN 22.5 H, Creatinine 0.94, Estimated GFR (MDRD) 57.00, BUN/Creatinine Ratio 23.93, Glucose 107.4 H, Calcium 9.18, Total Bilirubin 0.48, AST 25.0, ALT 20.1, Alkaline Phosphatase 86.0, Total Protein 6.92, Albumin 3.72, Globulin 3.20, Albumin/Globulin Ratio 1.16 09/16/20 04:15: WBC 12.79 H, RBC 3.75 L, Hgb 11.9 L, Hct 35.9 L, MCV 95.7, MCH 31.7 H, MCHC 33.1, RDW Coeff of Karina 12.5, Plt Count 245, Immature Gran % (Auto) 0.5, Neut % (Auto) 83.6 H, Lymph % (Auto) 9.5 L, Wood % (Auto) 6.1, Eos % (Auto) 0.2, Baso % (Auto) 0.1, Neut # (Auto) 10.7 H, Lymph # (Auto) 1.2, Wood # (Auto) 0.8, Eos # (Auto) 0.0, Baso # (Auto) 0.0, Immature Gran # (Auto) 0.1 ASSESSMENT: Please see below. 1. Acute pneumonitis. 2. COPD exacerbation seem to be improving with steroids, antibiotics, oxygen supplements and inhalers. 3. Hypertension. 4. Former smoker PLAN: 1. D/C home today. 2. Will see in the office next week. 3. Keflex 500 mg b.i.d. times 5 days. 4. Prednisone 20 mg b.i.d. times 3 days, then daily for 2 days 5. Keep appointment with Dr. Saunders on . Plan and coordination of the patient's care discussed in the presence of Doctor Of Optometry and nurse. CONDITION: Stable SCRIBED BY: Dimas RAM scribed while in presence of service performed by Dr. Mejía/Lia Da Silva APRN on 09/16/20 ([id number])
--- NOTE | 2020-09-16 10:48 | PN ---
DATE OF SERVICE: 09/10/2020 SUBJECTIVE: The patient was seen and examined with the Nurse Practitioner and plan was formulated in the office and the patient was hospitalized with respiratory failure. She is going to be on antibiotics, steroids and Echo will be done to evaluate LV function. I doubt the patient has left ventricular failure. The patient had post surgical respiratory arrest and she ended up on respirator after that with double pneumonia. Her respiratory status has deteriorated. She was stable for a while but again she shows deterioration of her respiratory status with fibrosis. The patient is COVID negative. TIME SPENT: More than 30 minutes. Plan and coordination of the patient's care discussed in the presence of nurse. DHAVAL
--- NOTE | 2020-09-16 11:15 | PN ---
DATE OF SERVICE: 09/11/2020 SUBJECTIVE: 79 year old white female has chronic respiratory failure. Lately she is feeling more short of breath on minimal exertion. REVIEW OF SYSTEMS: CONSTITUTIONAL: No night sweats. No fatigue, malaise, lethargy. No fever or chills. HEENT: Eyes: No visual changes. No eye pain. No eye discharge. ENT: No runny nose. No epistaxis. No sinus pain. No sore throat. No odynophagia. No congestion. RESPIRATORY: No cough, no congestion. No hemoptysis. Shortness of breath on minimal exertion. CARDIOVASCULAR: No angina symptoms. No CHF symptoms. No atypical chest pain for CAD. No palpitations. No PND. No orthopnea. GASTROINTESTINAL: No abdominal pain. No nausea or vomiting. No diarrhea or constipation. No hematemesis. No hematochezia. Weight gain lately. The patient has sedentary lifestyle. GENITOURINARY: No urgency. No frequency. No dysuria. No hematuria. No obstructive symptoms. No discharge. No pain. No significant abnormal bleeding. MUSCULOSKELETAL: No musculoskeletal pain; no joint swelling. NEUROLOGICAL: No headache. No neck pain. No syncope. No seizures. No dizziness. PSYCHIATRIC: Not anxious. No depression. No suicidal thoughts. No homicidal thoughts. SKIN: No rash. No lesions. No wounds. ENDOCRINE: No unexplained weight loss. No weight gain. HEMATOLOGIC/LYMPHATIC: No anemia. No purpura. No petechiae. No prolonged or excessive bleeding. No palpable lymph nodes. PHYSICAL EXAMINATION: VITAL SIGNS: Temperature 97.8, pulse 88, respiratory rate 16, blood pressure 146/78, pulse ox 94%. HEENT: Head normocephalic, atraumatic. Eyes: Extraocular muscles are intact. Pupils are equal, round and reactive to light and accommodation. Ears: No lesions. Nose appeared normal. Throat: No exudate or erythema. NECK: Supple. No JVD, no carotid bruit. No lymphadenopathy or thyromegaly. LUNGS: Decreased breath sounds with mild wheeze. Clear to auscultation. Percussion note normal. Chest symmetrical. HEART: S1, S2, no S3. No murmurs. No cyanosis or clubbing. No ascites. Pulses: Dorsalis pedis and posterior tibial pulses +1 to +2 bilaterally. ABDOMEN: Soft. Nontender. Bowel sounds active. No CVA tenderness. No mass felt. EXTREMITIES: No edema. Full range of motion of all extremities, equal. NEUROLOGIC: No focal deficit. Cranial nerves II through XII are grossly intact. No headache. No double vision. SKIN: Not dry. Intact. Turgor - normal. LYMPHATIC: No palpable lymph nodes/no lymphedema. MUSCULOSKELETAL: Normal joints with no swelling. Muscle tone is normal. LABS: Hgb 11.4, hct 34, WBC 7,300 normal differential, creatinine 0.6, BUN 8, potassium 3.5. ABG on 2.5 liters showed pO2 60, pCO2 43. pH 7.38 with 89.6% saturation. ASSESSMENT: 1. Respiratory failure from interstitial fibrosis 2. History of asthma The patient's condition has deteriorating after she had double pneumonia and was respiratory for awhile. The patient with has obesity with sedentary lifestyle besides that the patient has dyslipidemia, hypertension and atrial fibrillation. Echo showed LVH, enlarged LA cavity, enlarged RV cavity. It is to be noted that the patient's ejection fraction was normal. CONDITION: Stable TIME SPENT: More than 30 minutes. Plan and coordination of the patient's care discussed in the presence of nurse. DHAVAL
--- NOTE | 2020-09-17 11:15 | PN ---
DATE OF SERVICE: 09/15/20 SUBJECTIVE: 79-year-old white female hospitalized with COPD exacerbation. The patient's condition has been stable. She is still short of breath on exertion as usual but no nausea, no vomiting. Feeling somewhat better but still short of breath on exertion. No chest pain. PHYSICAL EXAMINATION: VITAL SIGNS: Temperature 97.9, pulse 78, respiratory rate 18, blood pressure 127/78, pulse ox 94%. HEENT: Head normocephalic, atraumatic. Eyes: Extraocular muscles are intact. Pupils are equal, round and reactive to light and accommodation. Ears: No lesions. Nose appeared normal. Throat: No exudate or erythema. NECK: Supple. No JVD, no carotid bruit. No lymphadenopathy or thyromegaly. LUNGS: Decreased breath sounds but clear to auscultation. Percussion note normal. Chest symmetrical. HEART: S1, S2, no S3. No murmurs. No cyanosis or clubbing. No ascites. Pulses: Dorsalis pedis and posterior tibial pulses +1 to +2 bilaterally. ABDOMEN: Soft. Nontender. Bowel sounds active. No CVA tenderness. No mass felt. EXTREMITIES: No edema. Full range of motion of all extremities, equal. NEUROLOGIC: No focal deficit. Cranial nerves II through XII are grossly intact. No headache. No double vision. SKIN: Not dry. Intact. Turgor - normal. LYMPHATIC: No palpable lymph nodes/no lymphedema. MUSCULOSKELETAL: Normal joints with no swelling. Muscle tone is normal. LABS: Hemoglobin 11.8, hematocrit 35, WBC 10,000, normal differential. Creatinine 0.9, BUN 19, potassium 4.8. ASSESSMENT: 1. Acute exacerbation of COPD with severe chronic lung disease with pulmonary fibrosis with history of asthma. 2. The patient's BMI is 34, she is 50 lbs overweight. PLAN: 1. She is strongly advised to lose weight so that her breathing capacity can improve. 2. Will continue steroids, nebs at home. 3. Continue inhalers. 4. Antibiotics. 5. Will likely discharge tomorrow. CONDITION: Stable otherwise. TIME SPENT: More than 30 minutes. Plan and coordination of the patient's care discussed in the presence of nurse. DHAVAL
--- NOTE | 2020-09-17 13:04 | PN ---
DATE OF SERVICE: 09/14/2020 SUBJECTIVE: 79 year old white female admitted with shortness of breath, acute COPD exacerbation. The patient has pulmonary fibrosis. Her condition has steadily improved. She was supposed to go home today but she has been complaining of mild nausea with some dry cough. She is a little bit more short of breath than yesterday. REVIEW OF SYSTEMS: CONSTITUTIONAL: No night sweats. No fatigue, malaise, lethargy. No fever or chills. HEENT: Eyes: No visual changes. No eye pain. No eye discharge. ENT: No runny nose. No epistaxis. No sinus pain. No sore throat. No odynophagia. No congestion. RESPIRATORY: No cough, no congestion. No hemoptysis. Little bit more shortness of breath than yesterday. CARDIOVASCULAR: No angina symptoms. No CHF symptoms. No atypical chest pain for CAD. No palpitations. No PND. No orthopnea. GASTROINTESTINAL: No abdominal pain. Mild nausea. No vomiting. No diarrhea or constipation. No hematemesis. No hematochezia. Poor appetite today. GENITOURINARY: No urgency. No frequency. No dysuria. No hematuria. No obstructive symptoms. No discharge. No pain. No significant abnormal bleeding. MUSCULOSKELETAL: No musculoskeletal pain; no joint swelling. NEUROLOGICAL: No headache. No neck pain. No syncope. No seizures. No dizziness. PSYCHIATRIC: Not anxious. No depression. No suicidal thoughts. No homicidal thoughts. SKIN: No rash. No lesions. No wounds. ENDOCRINE: No unexplained weight loss. No weight gain. HEMATOLOGIC/LYMPHATIC: No anemia. No purpura. No petechiae. No prolonged or excessive bleeding. No palpable lymph nodes. PHYSICAL EXAMINATION: VITAL SIGNS: Temperature 97.8, pulse 66, respiratory rate 18, blood pressure 130/74 and pulse ox 96%. HEENT: Head normocephalic, atraumatic. Eyes: Extraocular muscles are intact. Pupils are equal, round and reactive to light and accommodation. Ears: No lesions. Nose appeared normal. Throat: No exudate or erythema. NECK: Supple. No JVD, no carotid bruit. No lymphadenopathy or thyromegaly. LUNGS:Decreased breath sounds but clear to auscultation. Percussion note normal. Chest symmetrical. HEART: S1, S2, no S3. No murmurs. No cyanosis or clubbing. No ascites. Pulses: Dorsalis pedis and posterior tibial pulses +1 to +2 bilaterally. ABDOMEN: Soft. Nontender. Bowel sounds active. No CVA tenderness. No mass felt. EXTREMITIES: No edema. Full range of motion of all extremities, equal. NEUROLOGIC: No focal deficit. Cranial nerves II through XII are grossly intact. No headache. No double vision. SKIN: Not dry. Intact. Turgor - normal. LYMPHATIC: No palpable lymph nodes/no lymphedema. MUSCULOSKELETAL: Normal joints with no swelling. Muscle tone is normal. LABS: Hgb 11.6, hct 36, WBC 11,000 normal differential, creatinine 0.8, BUN 15, potassium 4.1 ASSESSMENT: 1. Acute COPD exacerbation 2. Pulmonary fibrosis 3. Chronic respiratory failure 4. Obesity with BMI 34 5. Hypertension 6. Dyslipidemia PLAN: 1. Discontinue Rocephin 2. Oral Keflex 3. Give Zofran 4. Continue Steroids 5. Strongly advised pulmonary rehab CONDITION: Stable. TIME SPENT: More than 30 minutes. Plan and coordination of the patient's care discussed in the presence of nurse. DHAVAL
--- NOTE | 2020-09-18 08:18 | HP ---
DATE OF SERVICE: 09/10/2020 REASON FOR HOSPITALIZATION/HISTORY OF PRESENT ILLNESS: Stated getting more short of breath times four days. Has O2 at night- concentrator. Needs portable O2 tank. The patient is tired, shortness of breath with no appetite. She has lost 4 pounds. PAST MEDICAL HISTORY: Hypertension Dyslipidemia Cervical radiculopathy Anxiety Hypothyroidism Chronic bronchitis Anemia PAST SURGICAL HISTORY: Hysterectomy Cancer uterus Left mastectomy REVIEW OF SYSTEMS: CONSTITUTIONAL: No fever, Fatigue. HEENT: Sinus drainage, no sore throat. RESPIRATORY: Cough, no congestion. CARDIOVASCULAR: No atypical chest pain for coronary artery disease. No angina, CHF symptoms, palpitations. Shortness of breath. GASTROINTESTINAL: No melena or abdominal pain. No GERD. Decrease in appetite. GENITOURINARY: No hematuria, no prostatism, no polyuria. [place] ROUTEMAN: No blackout, no dizziness, no headache, no double vision. MUSCULOSKELETAL: Osteoarthritis pain, no joint swelling. ENDOCRINE: No weight loss, no weight gain. SKIN: Not dry, no rash. PSYCHIATRIC: Not anxious, no depression, no suicidal thoughts, no homicidal thoughts. SOCIAL HISTORY: Marital Status: . Alcohol Usage: No. Tobacco Usage: No. FAMILY HISTORY: Father Mother Brother 3 Sisters 1 MEDICATIONS: Lipitor 10mg daily Celexa 20mg daily Ativan 1mg BID Reglan 10mg daily Synthroid 75mcg Atenolol 50mg daily Singulair 10mg daily Prilosec 10mg BID Probiotics Vitamins Xarelto 20mg daily Oxygen HS Vistaril 25mg TID PRN Femara 25mg Medrol Dose pack ALLERGIES: No known allergies. PHYSICAL EXAMINATION: V/S: Pulse 81, blood pressure 114/68, temperature 98.2, oxygen saturation 85% on room air. BMI 34.2, height 5'3 weight 193.2. GENERAL APPEARANCE: Oriented times three. HEENT: Pale. Yellow. NECK: No JVP, no bruits. RESPIRATORY: Decreased breath sounds. Crackles bilateral bases. CARDIOVASCULAR: S1, S2, no S3, no murmur. No cyanosis, clubbing. No ascites. GI/ABDOMEN: No tenderness. Bowel sounds are active. EXTREMITIES: edema, pulses +1, equal. CITY ROUTEMAN: Deep tendon reflexes, sensory, motor and gait all normal. RECTAL: Colorectal Dr. Valentin 2014 Refused repeat/PELVIC: Mammogram 11/27/2019 Left mastectomy 11/13 Dr. Luna follow. ASSESSMENT: 1. Shortness of breath 2. Acute COPD exacerbation 3. Acute pneumonitis 4. COPD 5. Chronic respiratory failure 6. History of right DVT peroneal 7. Lumbar radiculopathy 8. Chronic bronchitis 9. Cervical radiculopathy 10.Left mastectomy- Dr. Luna 11.Left breast cancer 12.Hypertension 13.Dyslipidemia 14.Hypothyroidism 15.Obesity 16.Cancer right knee 17.Cervical DJD CT 02/14 18.Right sciatica 19.Anemia 20.History of uterine cancer 21.Fibromyalgia PLAN: 1. The patient will have respiratory panel before 2. Routine telemetry orders 3. No cardiac markers 4. CBC and CMP now and daily 5. Chest x-ray 6. U/A 7. Continue home medications 8. ABG on room air 9. Rocephin 1gram IV daily 10.Zithromax 500mg daily PO times three days 11.O2 @ 1-2 liters normal saline 12.Solu-Cortef 125mg IV Q 12 hours 13.Regular diet TIME SPENT: More than 70 minutes. MTDD
--- NOTE | 2020-09-19 09:56 | PN ---
DATE OF SERVICE: 09/16/20 SUBJECTIVE: The patient was seen and examined with the nurse practitioner. She is up and about, still mildly short of breath with exertion as usual. Her overall physical status has improved with some improvement in her appetite and attitude. She appears to be stronger than before. The patient will be discharged on steroids, antibiotics and was advised to continue nebs at home with inhalers. CONDITION: Stable. TIME SPENT: More than 30 minutes. Plan and coordination of the patient's care discussed in the presence of nurse. DHAVAL
--- NOTE | 2020-09-19 10:11 | DS ---
DATE OF SERVICE: 09/16/20 FINAL DIAGNOSIS: 1. ACUTE COPD EXACERBATION 2. ACUTE PNEUMONITIS 3. HYPOKALEMIA HX: 4. CHRONIC RESPIRATORY FAILURE 5. COPD 6. ASTHMA 7. HYPERTENSION 8. DYSLIPIDEMIA 9. HYPOTHYROIDISM 10. OBESITY 11. ANEMIA 12. GERD 13. DVT, RIGHT PERONEAL 14. LUMBAR RADICULOPATHY 15. CERVICAL RADICULOPATHY 16. OSTEOARTHRITIS, RIGHT KNEE 17. CERVICAL DJD 18. FIBROMYALGIA 19. CANCER, LEFT BREAST 20. MASTECTOMY, LEFT (DR. NAPIER, 2018) 21. [id number]. CANCER, UTERINE LAST VITALS Temp Pulse Resp BP Pulse Ox 98.0 F 83 18 148/90 H 96 09/16/20 05:49 09/16/20 05:49 09/16/20 05:49 09/16/20 05:49 09/16/20 05:49 DISCHARGE INSTRUCTIONS: DISCHARGE HOME: SEPTEMBER 16, 2020 MD FOLLOW-UP: SEE DR. WRAY/ SANA POST APRN/BANDAR DURANT APRN IN THE OFFICE ON SEPTEMBER 23, 2020 @ 1015 AM HOME OXYGEN: PROVIDED PER [facility] [phone]. 3 LITERS A MINUTE PER NASAL CANNULA CONTINOUS FOLLOW HOME OXYGEN PRECAUTION MEDICATIONS AT DISCHARGE: Albuterol Sulfate (Albuterol Sulfate (Ventolin Hfa) 18 Gm 1 Puff With Spacer) 2 puff IH RTQID [facility] -- ( NEW) Last Admin: 09/16/20 04:44 Dose: 2 puff Documented by: Atenolol (Atenolol 50 Mg Tablet) 50 mg PO DAILY [facility] Last Admin: 09/15/20 09:03 Dose: 50 mg Documented by: Atorvastatin Calcium (Atorvastatin Calcium 10 Mg Tablet) 10 mg PO DAILY [facility] Last Admin: 09/15/20 09:04 Dose: 10 mg Documented by: Budesonide/Formoterol Fumarate (Budesonide/Formoterol Fumarate 160/4.5 Mcg Inhaler) 2 puff IH BID [facility] -- ( NEW) Last Admin: 09/15/20 21:01 Dose: 2 puff Documented by: Cephalexin (Cephalexin 500 Mg Capsule) 500 mg PO Q12HR [facility] X 5 MORE DAYS -- ( NEW) Stop: 09/17/20 12:29 Last Admin: 09/15/20 20:57 Dose: 500 mg Documented by: Citalopram Hydrobromide (Citalopram Hydrobromide 20 Mg Tablet) 20 mg PO DAILY [facility] Last Admin: 09/15/20 09:03 Dose: 20 mg Documented by: Furosemide (Furosemide 20 Mg Tablet) 20 mg PO QDAC [facility] -- ( NEW) Last Admin: 09/16/20 05:58 Dose: 20 mg Documented by: Levothyroxine Sodium (Levothyroxine Sodium 75 Mcg Tablet) 75 mcg PO QDAC [facility] Last Admin: 09/16/20 05:58 Dose: 75 mcg Documented by: Lorazepam (Lorazepam 1 Mg Tablet) 1 mg PO BID [facility] Last Admin: 09/15/20 20:56 Dose: 1 mg Documented by: Metoclopramide HCl (Metoclopramide Hcl 10 Mg Tablet) 10 mg PO BEDTIME [facility] Last Admin: 09/15/20 20:57 Dose: 10 mg Documented by: Montelukast Sodium (Montelukast Sodium 10 Mg Tablet) 10 mg PO DAILY [facility] Last Admin: 09/15/20 09:04 Dose: 10 mg Documented by: Multivitamins (Multivitamin 1 Tab) 1 tab PO DAILY [facility] Last Admin: 09/15/20 09:04 Dose: 1 tab Documented by: Non-Formulary Medication (Lactobacillus Acidophilus ) 1 cap PO TID PRN PRN Reason: AT PATIENT DISCRETION Non-Formulary Medication (Tamoxifen) 20 mg PO BEDTIME [facility] Last Admin: 09/15/20 21:01 Dose: 20 mg Documented by: Omeprazole (Omeprazole 20 Mg Capsule.Dr) 20 mg PO QDAC [facility] Last Admin: 09/16/20 05:58 Dose: 20 mg Documented by: Potassium Chloride (Potassium Chloride 20 Meq Tab) 20 meq PO DAILY [facility] -- ( NEW) Last Admin: 09/15/20 16:51 Dose: 20 meq Documented by: Prednisone (Prednisone 20 Mg Tablet) 20 mg PO BIDWM ASAEL X 3 MORE DAYS, THEN 20 MG PO DAILL X 2 DAYS THEN STOP -- ( NEW) Last Admin: 09/15/20 16:51 Dose: 20 mg Documented by: Promethazine HCl/Codeine (Promethazine/Codeine Syrup 6.25/10 Mg/5 Ml Disp.Syringe) 10 ml PO Q6H PRN -- ( NEW) PRN Reason: Cough Last Admin: 03/21/21 12:27 Dose: 10 ml Documented by: Rivaroxaban (Rivaroxaban 10 Mg Tablet) 20 mg PO BEDTIME [facility] Last Admin: 09/15/20 20:58 Dose: 20 mg Documented by: Ropinirole HCl (Ropinirole Hcl 1 Mg Tablet) 1 mg PO BEDTIME [facility] Last Admin: 09/15/20 20:57 Dose: 1 mg Documented by: VISTARIL 25 MG PO TID PRN NEW PRESCRIPTIONS: ALBUTEROL SULFATE (Ventolin Hfa) 18 Gm) 2 puff IH QID [facility] BUDESONIDE/FORMOTEROL FUMARATE (SYMBICORT) (160/4.5 Mcg Inhaler) 2 puff IH BID [facility] CEPHALEXIN 500 mg PO Q12HR X 5 MORE DAYS FUROSEMIDE 20 mg PO QDAC [facility] POTASSIUM CHLORIDE 20 meq PO DAILY [facility] PREDNISONE 20 mg PO BIDWM ASAEL X 3 MORE DAYS, THEN 20 MG PO DAILY X 2 DAYS THEN STOP PROMETHAZINE HCL/CODEINE (6.25/10 Mg/5 Ml) 10 ml PO Q6H PRN DISCONTINUED MEDICATIONS: NONE DIET INSTRUCTIONS: REGULAR. USE ENSURE AT HOME 1-2 TIMES A DAY ONLY IF NOT EATING WELL. ACTIVITY: UP IN HOME FREQUENTLY INDEPENDENTLY WITH REST PERIODS STAY HOME UNTIL MD FOLLOW UP IF POSSIBLE SOCIAL DISTANCING IF OUT IN THE PUBLIC SMOKING: N/A DISEASE SPECIFIC EDUCATION: COPD HOME O2 BLEEDING PRECAUTIONS PNEUMONIA COVID HOSPITAL COURSE: The patient was hospitalized with shortness of breath, cough and congestion. The patient was in respiratory failure and her oxygen saturation was close to 84-85% on room air. Condition overall has been deteriorating for the past couple of weeks. During the stay in the hospital was given steroids, antibiotics, was put on inhalers. Later on IV steroids were tapered to p.o. 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 In any case, the patient's condition at the time of discharge was better in the way that she was stronger, coughing much less, controlled with Phenergan with Codeine. Her appetite had improved some. She is still short of breath on minimal exertion but the patient's problems are sedentary lifestyle with BMI of 34. Weight loss reduction diet was explained to the patient, advised to join pulmonary rehab. At the time of discharge stable. TIME SPENT: More than 60 minutes. [facility]
--- NOTE | 2020-09-19 10:13 | PN ---
BILLING 09/10/20 ADMISSION DAY LEVEL 5 09/11/20 INTERMEDIATE 09/12/20 INTERMEDIATE 09/13/20 INTERMEDIATE 09/14/20 INTERMEDIATE 09/15/20 INTERMEDIATE 09/16/20 D IN DISCHARGE MTDD
--- NOTE | 2020-09-20 13:43 | DS ---
DATE OF SERVICE: 09/16/20 FINAL DIAGNOSIS: 1. ACUTE COPD EXACERBATION 2. ACUTE PNEUMONITIS 3. HYPOKALEMIA HX: 4. CHRONIC RESPIRATORY FAILURE 5. COPD 6. ASTHMA 7. HYPERTENSION 8. DYSLIPIDEMIA 9. HYPOTHYROIDISM 10. OBESITY 11. ANEMIA 12. GERD 13. DVT, RIGHT PERONEAL 14. LUMBAR RADICULOPATHY 15. CERVICAL RADICULOPATHY 16. OSTEOARTHRITIS, RIGHT KNEE 17. CERVICAL DJD 18. FIBROMYALGIA 19. CANCER, LEFT BREAST 20. CANCER, UTERINE 21. MASTECTOMY, LEFT (DR. NAPIER, 2018) 22. CHOLECYSTECTOMY LAST VITALS Temp Pulse Resp BP Pulse Ox 98.0 F 83 18 148/90 H 96 09/16/20 05:49 09/16/20 05:49 09/16/20 05:49 09/16/20 05:49 09/16/20 05:49 DISCHARGE INSTRUCTIONS: 1. MD FOLLOW-UP: SEE DR. WRAY/ SANA POST APRN/ BANDAR DURANT APRN IN THE OFFICE ON SEPTEMBER 23, 2020 @ 1015 AM. 2. HOME OXYGEN: PROVIDED PER [facility] [phone]. 3 LITERS A MINUTE PER NASAL CANNULA CONTINUOUS FOLLOW HOME OXYGEN PRECAUTIONS. MEDICATIONS AT DISCHARGE: Albuterol Sulfate (Albuterol Sulfate (Ventolin Hfa) 18 Gm 1 Puff With Spacer) 2 puff IH RTQID [facility] -- ( NEW) Last Admin: 09/16/20 04:44 Dose: 2 puff Documented by: Atenolol (Atenolol 50 Mg Tablet) 50 mg PO DAILY [facility] Last Admin: 09/15/20 09:03 Dose: 50 mg Documented by: Atorvastatin Calcium (Atorvastatin Calcium 10 Mg Tablet) 10 mg PO DAILY [facility] Last Admin: 09/15/20 09:04 Dose: 10 mg Documented by: Budesonide/Formoterol Fumarate (Budesonide/Formoterol Fumarate 160/4.5 Mcg Inhaler) 2 puff IH BID [facility] -- ( NEW) Last Admin: 09/15/20 21:01 Dose: 2 puff Documented by: Cephalexin (Cephalexin 500 Mg Capsule) 500 mg PO Q12HR [facility] X 5 MORE DAYS -- ( NEW) Stop: 09/17/20 12:29 Last Admin: 09/15/20 20:57 Dose: 500 mg Documented by: Citalopram Hydrobromide (Citalopram Hydrobromide 20 Mg Tablet) 20 mg PO DAILY [facility] Last Admin: 09/15/20 09:03 Dose: 20 mg Documented by: Furosemide (Furosemide 20 Mg Tablet) 20 mg PO QDAC [facility] -- ( NEW) Last Admin: 09/16/20 05:58 Dose: 20 mg Documented by: Levothyroxine Sodium (Levothyroxine Sodium 75 Mcg Tablet) 75 mcg PO QDAC [facility] Last Admin: 09/16/20 05:58 Dose: 75 mcg Documented by: Lorazepam (Lorazepam 1 Mg Tablet) 1 mg PO BID [facility] Last Admin: 09/15/20 20:56 Dose: 1 mg Documented by: Metoclopramide HCl (Metoclopramide Hcl 10 Mg Tablet) 10 mg PO BEDTIME [facility] Last Admin: 09/15/20 20:57 Dose: 10 mg Documented by: Montelukast Sodium (Montelukast Sodium 10 Mg Tablet) 10 mg PO DAILY [facility] Last Admin: 09/15/20 09:04 Dose: 10 mg Documented by: Multivitamins (Multivitamin 1 Tab) 1 tab PO DAILY [facility] Last Admin: 09/15/20 09:04 Dose: 1 tab Documented by: Non-Formulary Medication (Lactobacillus Acidophilus ) 1 cap PO TID PRN PRN Reason: AT PATIENT DISCRETION Non-Formulary Medication (Tamoxifen) 20 mg PO BEDTIME [facility] Last Admin: 09/15/20 21:01 Dose: 20 mg Documented by: Omeprazole (Omeprazole 20 Mg Capsule.Dr) 20 mg PO QDAC [facility] Last Admin: 09/16/20 05:58 Dose: 20 mg Documented by: Potassium Chloride (Potassium Chloride 20 Meq Tab) 20 meq PO DAILY [facility] -- ( NEW) Last Admin: 09/15/20 16:51 Dose: 20 meq Documented by: Prednisone (Prednisone 20 Mg Tablet) 20 mg PO BIDWM ASAEL X 3 MORE DAYS, THEN 20 MG PO DAILL X 2 DAYS THEN STOP -- ( NEW) Last Admin: 09/15/20 16:51 Dose: 20 mg Documented by: Promethazine HCl/Codeine (Promethazine/Codeine Syrup 6.25/10 Mg/5 Ml Disp.Syringe) 10 ml PO Q6H PRN -- ( NEW) PRN Reason: Cough Last Admin: 09/15/20 12:27 Dose: 10 ml Documented by: Rivaroxaban (Rivaroxaban 10 Mg Tablet) 20 mg PO BEDTIME [facility] Last Admin: 09/15/20 20:58 Dose: 20 mg Documented by: Ropinirole HCl (Ropinirole Hcl 1 Mg Tablet) 1 mg PO BEDTIME [facility] Last Admin: 09/15/20 20:57 Dose: 1 mg Documented by: VISTARIL 25 MG PO TID PRN NEW PRESCRIPTIONS: ALBUTEROL SULFATE (Ventolin Hfa) 18 Gm ) 2 puff IH QID [facility] BUDESONIDE/FORMOTEROL FUMARATE (SYMBICORT) (160/4.5 Mcg Inhaler) 2 puff IH BID [facility] CEPHALEXIN 500 mg PO Q12HR X 5 MORE DAYS FUROSEMIDE 20 mg PO QDAC [facility] POTASSIUM CHLORIDE 20 meq PO DAILY [facility] PREDNISONE 20 mg PO BIDWM ASAEL X 3 MORE DAYS, THEN 20 MG PO DAILY X 2 DAYS THEN STOP PROMETHAZINE HCL/CODEINE (6.25/10 Mg/5 Ml) 10 ml PO Q6H PRN DISCONTINUED MEDICATIONS: NONE DIET INSTRUCTIONS: REGULAR. USE ENSURE AT HOME 1-2 TIMES A DAY ONLY IF NOT EATING WELL. ACTIVITY: UP IN HOME FREQUENTLY INDEPENDENTLY WITH REST PERIODS STAY HOME UNTIL MD FOLLOW UP IF POSSIBLE SOCIAL DISTANCING IF OUT IN THE PUBLIC SMOKING: N/A DISEASE SPECIFIC EDUCATION: COPD HOME O2 BLEEDING PRECAUTIONS PNEUMONIA COVID HOSPITAL COURSE: This is an 79-year-old white female who initially presented to the office complaining of worsening shortness of breath. She wanted a portable oxygen tank. In the office oxygen saturation was 84%. She did have on a portable oxygen tank that she had borrowed from someone. She does have a history of chronic respiratory failure and severe COPD however this is slightly worse than her baseline. She was admitted, found to be slightly dehydrated. Chest x-ray revealed changes associated with COPD, no definite pneumonia. She was admitted for acute pneumonitis and shortness of breath, placed on Solu-Cortef 125 IV q.8 along with Rocephin 1 gm IV daily and Zithromax 500 mg p.o. daily for the next three days. She was started on Symbicort inhaler two puffs b.i.d. along with an Albuterol inhaler two puffs t.i.d., respiratory panel was negative for Covid. We did also start her on Lasix 20 mg daily. Over the course of several days she steadily improved. She still does have chronic shortness of breath however again she does have severe COPD. She has home 02 and does qualify for portable oxygen tank. ABGs initially were abnormal with p02 in the 40s. On discharge p02 is up in the 60s on room air. Again, she does have oxygen at home. She will go home with Keflex 500 mg p.o. b.i.d. for the next 5 days, the new prescription for Lasix along with potassium 20 daily to take with the Lasix. It took us awhile to wean her steroids. She will go home on Prednisone 20 mg b.i.d. for 3 days and then daily for 2 days and then stop. We will followup with her in the office next week. She also sees Dr. Ingram for her lungs on a regular basis every 6 months. She is discharged in stable condition. TIME SPENT: More than 60 minutes. [facility]
== END 2020-09-16 11:33 | disposition home or self-care (01) | DRG 194 ==
LOC: MEDSURG A 12:22
PROVIDERS: ADMIT Internal Medicine; ATTEND Internal Medicine

== ENCOUNTER 2020-10-07 13:23 | Inpatient (IN) ==
[2020-10-07 13:59] LABS: ABG PH 7.42 (7.35-7.45)
[2020-10-07] MEDS ORDERED: ATROVENT HFA INHALER (PER PUFF-WITH SPACER) IH STA (13:59)
[2020-10-07] MEDS ORDERED: VENTOLIN HFA (PER PUFF-WITH SPACER) IH STA (13:59)
[2020-10-07] MEDS ORDERED: SOLU-MEDROL 125 MG IVP STA (13:59)
[2020-10-07 14:10] LABS: BASOPHILS % (AUTO) 0.2 % (0.0-3.0); EOSINOPHILS % (AUTO) 0.2 % (0.0-7.0); HEMOGLOBIN 12.3 g/dl (12.0-16.0); IMMATURE GRANULOCYTE % (AUTO) 0.3 % (0.0-5.0); LYMPHOCYTES % (AUTO) 11.1 (10.0-50.0); MEAN CORPUSCULAR HEMOGLOBIN 31.4 pg (27.0-31.0); MEAN CORPUSCULAR HGB CONC 33.2 (31.8-35.4); MEAN CORPUSCULAR VOLUME 94.4 fl (81.0-99.0); MONOCYTES # (AUTO) 0.5 K/uL (0.4-2.0); MONOCYTES % (AUTO) 5.4 (0-10); NEUTROPHILS # (AUTO) 7.4 K/ul (2.0-6.9); NEUTROPHILS % (AUTO) 82.8 % (42.2-75.2); PLATELET COUNT 219 10^3/uL (140-440); RDW COEFFICIENT OF VARIATION 12.4 % (11.6-14.8); RED BLOOD COUNT 3.92 10^6/ul (4.20-5.40); WHITE BLOOD COUNT 8.93 K/ul (4.6-10.2)
[2020-10-07] MEDS ORDERED: SODIUM CHLORIDE 1,000 ML IV STA (14:13)
[2020-10-07 14:21] LABS: ALANINE AMINOTRANSFERASE 16.5 U/L (0-35); ALBUMIN 3.98 g/dL (3.5-5.0); ASPARTATE AMINO TRANSFERASE 24.4 U/L (14-36); BILIRUBIN,TOTAL 0.42 mg/dL (0.2-1.3); BLOOD UREA NITROGEN 16.8 mg/dL (7-17); CALCIUM 9.16 mg/dL (8.4-10.2); CARBON DIOXIDE 34.8 mmol/L (22-30.0); CHLORIDE 98.8 mmol/L (98-107); CREATININE 1.03 mg/dL (0.60-1.30); GLUCOSE 119.2 mg/dL (74-106); POTASSIUM 3.92 mmol/L (3.5-5.1); SODIUM 137.8 mmol/L (134.5-145); TOTAL PROTEIN 7.43 g/dL (6.3-8.2)
[2020-10-07 14:34] LABS: TROPONIN I < 0.012 ng/ml (0.0000-0.120)
--- NOTE | 2020-10-07 15:08 | CT ---
EXAM: CT chest without contrast HISTORY: Shortness of breath COMPARISON: 09/11/2020 TECHNIQUE: Multiple axial images of the chest were obtained without contrast. Images were reformatte d in the sagittal and coronal planes. FINDINGS: Normal appearance thoracic inlet and thyroid gland. Left mastectomy changes. No enlarged axillary or mediastinal lymph nodes. Unchanged borderline enlarged right lower paratracheal lymph node measurin g 1 cm. Lack of IV contrast limits evaluation for hilar adenopathy must calcified left hilar lymph n odes/granulomas. Heart size mildly enlarged. Coronary calcifications. Normal diameter thoracic aort a. Scattered atherosclerotic calcifications. Esophagus within normal limits. Small hiatal hernia. Patent central airways. Stable appearance of the patchy bilateral subpleural and central reticular interstitial opacities and ground-glass. Associated bronchiectasis in the right upper lung and left lower lung are unchanged. No pneumothorax, pleural effusion or consolidation. No acute findings within the visualized upper abdomen. No acute osseous abnormality. IMPRESSION: 1. No acute cardiopulmonary findings. 2. Stable appearance of the nonspecific interstitial lung disease compared to 09/11/2020. All CT scans are performed using dose optimization techniques as appropriate to the performed exam an d include at least one of the following: Automated exposure control, adjustment of the mA and/or kV according t o size, and the use of iterative reconstruction technique.
[2020-10-07] MEDS ORDERED: VENTOLIN HFA (PER PUFF-WITH SPACER) IH SCH (16:30)
[2020-10-07] MEDS ORDERED: PHENERGAN WITH CODEINE 6.25/10 MG/5 ML PO PRN (16:31)
[2020-10-07] MEDS ORDERED: LACTOBACILLUS ACIDOPHILUS PO PRN (16:31)
--- NOTE | 2020-10-07 17:07 | ED.PDOC ---
General ED Provider: Dr. PRECIOUS THIBODEAUX MD Chief Complaint: Shortness of Air Stated Complaint: Increasing SOB x 2 days. no acute fever or wheezing. Time Seen by Provider: 10/07/20 13:25 Mode of Arrival: Walk-In Information Source: Patient Exam Limitations: No limitations Primary Care Provider: JACQUIE WRAY Nursing and Triage Documentation Reviewed and Agree: Yes Does patient meet sepsis criteria?: No System Inflammatory Response Syndrome: Not Applicable Sepsis Protocol: For patient's 13 years and over: Temp is 96.8 and below OR 101 and greater Pulse >90 BPM Resp >20/minute Acutely Altered Mental Status Are patient's symptoms suggestive of a new infection, such as: -Pneumonia -Skin, Soft Tissue -Endocarditis -UTI -Bone, Joint Infection -Implantable Device -Acute Abdominal Infection -Wound Infection -Meningitis -Blood Stream Catheter Infection -Unknown Respiratory Complaint Exam Shortness of Air Complaint/Exam Onset/Duration: worse x 2 days. Symptoms Are: Still present Timing: Constant Initial Severity: Mild Current Severity: Mild Character: Reports Dyspnea at rest and Dyspnea on exertion Aggravating: Reports Movement Alleviating: Reports Bronchodilators and Oxygen Associated Signs and Symptoms: Denies Cough, Wheezing, Chest pain with cough, Chest pain, Fever, Chills, Diaphoresis, Nasal congestion, Dizziness, Calf pain, Calf swelling, Edema, Rapid breathing, Labored breathing and Decreased intake History of Healthcare-Acquired Pneumonia: No Pseudomonas Risk Factors: Reports Bronchiectasis Home Oxygen Use: Yes Recent Stress Test: No Recent Echo/LV Function: No Respiratory Distress: None Stridor Present: No Tracheal Deviation: No Subcutaneous Emphysema: No Accessory Muscle Use: No Retractions: Not Present Diminished Breath Sounds: No Prolonged Expiratory Phase: No Unable to Speak Full Sentences: No Fatigue: No Leg Swelling: No Rosy's Sign Present: No Grunting Respirations: No Kussmaul Respirations: No Differential Diagnoses: Asthma, COPD Exacerbation, SARS, Bronchitis, Bronchiolitis, Bronchospasm and URI Review of Systems Review Of Systems Constitutional: Reports No symptoms Eyes: Reports No symptoms Ears, Nose, Mouth, Throat: Reports No symptoms Respiratory: Reports Cough and Short of air Cardiac: Reports No symptoms GI: Reports No symptoms : Reports No symptoms Musculoskeletal: Reports No symptoms Skin: Reports No symptoms Neurological: Reports No symptoms Endocrine: Reports No symptoms Hematologic/Lymphatic: Reports No symptoms All Other Systems: Reviewed and Negative [facility] Medical History Anemia Diabetes mellitus Gastroesophageal reflux disease Hypertension Family History FATHER Diabetes BROTHER Cardiovascular disease Social History Smoking and tobacco status: Never smoker Surgical History History of mastectomy History of tubal ligation Status post cholecystectomy Female Reproductive History Menstrual Hx Hysterectomy: No Hx Tubal Ligation: Yes Physical Exam Physical Exam Appearance: Reports Well-appearing Ill-appearing: None Pain Distress: None Eyes: Reports MARTIN, EOMI and Conjunctiva clear ENT: Reports Ears normal, Nose normal and Oropharynx normal Neck: Supple Respiratory: Reports Airway patent, Breath sounds clear, Breath sounds equal and Rhonchi Cardiovascular: Reports RRR, Pulses normal, No rub and No murmur GI/: Reports Soft, Nontender, No masses and Bowel sounds normal Musculoskeletal: Reports Normal strength, ROM intact, No edema and No calf tenderness Skin: Reports Warm, Dry and Normal color Neurological: Reports Sensation intact, Motor intact, Reflexes intact, Cranial nerves intact, Alert and Oriented Psychiatric: Reports Affect appropriate and Mood appropriate Interpretation Radiology Interpretation Radiology Interpretation By: Radiologist Exam Interpreted: CT Scan Re-Evaluation Re-Evaluation Time of Re-Evaluation: 14:32 Status: Improved Vital Signs Stable: Yes Pain Level: 0 Appearance: NAD Lungs: Other (mild rhonchi) Skin: Warm and Dry Neuro: Alert and Oriented X3 CV: RRR Critical Care Note Critical Care Note Total Critical Care Time (mins): 0 Course Course Hematology/Chemistry: 10/07/20 14:03 10/07/20 14:03 Orders, Labs, Meds: Lab Review 10/07/20 10/07/20 10/07/20 13:50 14:03 14:03 WBC 8.93 RBC 3.92 L Hgb 12.3 Hct 37.0 MCV 94.4 MCH 31.4 H MCHC 33.2 RDW Coeff of Karina 12.4 Plt Count 219 Immature Gran % (Auto) 0.3 Neut % (Auto) 82.8 H Lymph % (Auto) 11.1 [place] % (Auto) 5.4 Eos % (Auto) 0.2 Baso % (Auto) 0.2 Neut # (Auto) 7.4 H Lymph # (Auto) 1.0 [place] # (Auto) 0.5 Eos # (Auto) 0.0 Baso # (Auto) 0.0 Immature Gran # (Auto) 0.0 Puncture Site Rr Base Excess 11.8 H O2 Saturation 98.2 H ABG pH 7.42 ABG pCO2 56.0 H ABG pO2 107.0 H ABG HCO3 36.3 H ABG Total CO2 38.0 H Pj Test Y Hemoglobin 0.4 Oxyhemoglobin 96.4 Carboxyhemoglobin 0.9 Total Hemoglobin 13.0 O2 Delivery Device Cannula Oxygen Liter Flow 2.50 FiO2 % Sodium 137.8 Potassium 3.92 Chloride 98.8 Carbon Dioxide 34.8 H Anion Gap 8.12 BUN 16.8 Creatinine 1.03 Estimated GFR (MDRD) 52.00 BUN/Creatinine Ratio 16.31 Glucose 119.2 H Calcium 9.16 Total Bilirubin 0.42 AST 24.4 ALT 16.5 Alkaline Phosphatase 103.0 Troponin I < 0.012 NT-Pro-B Natriuret Pep 291.000 Total Protein 7.43 Albumin 3.98 Globulin 3.45 Albumin/Globulin Ratio 1.15 Adenovirus (PCR) B. pertussis DNA (PCR) B.parapertussis DNA PCR C. pneumoniae DNA (PCR) Coronavirus OC43 (PCR) Coronavirus HKU1 (PCR) Coronavirus 229E (PCR) Coronavirus NL63 (PCR) Human Metapneumovir PCR Influenza Type A (PCR) Influenza B (RT-PCR) M. pneumoniae (PCR) Parainfluenza 1 (PCR) Parainfluenza 2 (PCR) Parainfluenza 3 (PCR) Parainfluenza 4 (PCR) RSV (PCR) Entero/Rhino (PCR) SARS-CoV-2 (PCR) 10/07/20 14:30 WBC RBC Hgb Hct MCV MCH MCHC RDW Coeff of Karina Plt Count Immature Gran % (Auto) Neut % (Auto) Lymph % (Auto) [place] % (Auto) Eos % (Auto) Baso % (Auto) Neut # (Auto) Lymph # (Auto) [place] # (Auto) Eos # (Auto) Baso # (Auto) Immature Gran # (Auto) Puncture Site Base Excess O2 Saturation ABG pH ABG pCO2 ABG pO2 ABG HCO3 ABG Total CO2 Pj Test Hemoglobin Oxyhemoglobin Carboxyhemoglobin Total Hemoglobin O2 Delivery Device Oxygen Liter Flow FiO2 % Sodium Potassium Chloride Carbon Dioxide Anion Gap BUN Creatinine Estimated GFR (MDRD) BUN/Creatinine Ratio Glucose Calcium Total Bilirubin AST ALT Alkaline Phosphatase Troponin I NT-Pro-B Natriuret Pep Total Protein Albumin Globulin Albumin/Globulin Ratio Adenovirus (PCR) Not detected B. pertussis DNA (PCR) Not detected B.parapertussis DNA PCR Not detected C. pneumoniae DNA (PCR) Not detected Coronavirus OC43 (PCR) Not detected Coronavirus HKU1 (PCR) Not detected Coronavirus 229E (PCR) Not detected Coronavirus NL63 (PCR) Not detected Human Metapneumovir PCR Not detected Influenza Type A (PCR) Not detected Influenza B (RT-PCR) Not detected M. pneumoniae (PCR) Not detected Parainfluenza 1 (PCR) Not detected Parainfluenza 2 (PCR) Not detected Parainfluenza 3 (PCR) Not detected Parainfluenza 4 (PCR) Not detected RSV (PCR) Not detected Entero/Rhino (PCR) Not detected SARS-CoV-2 (PCR) Not detected Orders Category Date Time Status ABG DRAW REQUEST Stat CARDIO 10/07/20 13:49 Completed EKG-(ED ONLY) Stat CARDIO 10/07/20 13:49 Completed METERED DOSE INHALATION Routine CARDIO 10/07/20 14:00 Completed ED IV/MEDIPORT/POWERPORT .ONCE EMERGENCY 10/07/20 13:49 Active ABG COOX Stat LAB 10/07/20 13:50 Completed CBC W/ AUTO DIFF Stat LAB 10/07/20 14:03 Completed COMPREHENSIVE METABOLIC PANEL Stat LAB 10/07/20 14:03 Completed NT-PROBNP Stat LAB 10/07/20 14:03 Completed RESPIRATORY PANEL 2.1 (PCR) Stat LAB 10/07/20 14:30 Completed TROPONIN I Stat LAB 10/07/20 14:03 Completed 0.9 % Sodium Chloride [Saline Flush] MEDS 10/07/20 13:49 Active 1 syr IVF PRN PRN Albuterol Inhaler(with Spacer) [Ventolin Hfa (Per Puff- MEDS 10/07/20 13:59 Discontinued with Spacer)] 2 puff IH ONCE STA Ipratropium Inhaler(Spacer) [Atrovent Hfa Inhaler (Per MEDS 10/07/20 13:59 Discontinued Puff-with Spacer)] 2 puff IH ONCE STA Methylprednisolone Sod Succ/Pf [Solu-Medrol 125 mg] MEDS 10/07/20 13:59 Discontinued 125 mg IVP ONCE STA Sodium Chloride 0.9% [Sodium Chloride] 1,000 ml MEDS 10/07/20 14:13 Active IV 125 mls/hr CT CHEST W/O CONTRAST Stat RADS 10/07/20 13:49 Completed Medications Generic Name Dose Route Start Last Admin Trade Name Freq PRN Reason Stop Dose Admin Albuterol Sulfate 2 puff 10/07/20 16:30 Albuterol Sulfate (Ventolin Hfa) 18 Gm 1 Puff With Spacer IH Q6H [facility] Atenolol 50 mg 10/08/20 09:00 Atenolol 50 Mg Tablet PO DAILY [facility] Atorvastatin Calcium 10 mg 10/08/20 09:00 Atorvastatin Calcium 10 Mg Tablet PO DAILY [facility] Budesonide/Formoterol Fumarate 2 puff 10/07/20 21:00 Budesonide/Formoterol Fumarate 160/4.5 Mcg Inhaler IH BID [facility]EL Citalopram Hydrobromide 20 mg 10/08/20 09:00 Citalopram Hydrobromide 20 Mg Tablet PO DAILY [facility] Furosemide 20 mg 10/08/20 06:30 Furosemide 20 Mg Tablet PO QDAC [facility] Hydroxyzine Pamoate 25 mg 10/07/20 16:31 Hydroxyzine Pamoate 25 Mg Capsule PO TID PRN Abdominal Pain Sodium Chloride 1,000 mls @ 125 mls/hr 10/07/20 14:13 Sodium Chloride IV 10/07/20 22:12 .Q8H STA Ipratropium [place] 2 puff 10/07/20 18:00 Ipratropium [place] 12.9 Gm Hfa Inhaler Per Puff With Spacer IH RTQ6H [facility] Levothyroxine Sodium 75 mcg 10/08/20 06:30 Levothyroxine Sodium 75 Mcg Tablet PO QDAC [facility] Lorazepam 1 mg 10/07/20 21:00 Lorazepam 1 Mg Tablet PO BID [facility] Montelukast Sodium 10 mg 10/08/20 09:00 Montelukast Sodium 10 Mg Tablet PO DAILY [facility] Non-Formulary Medication 1 cap 10/07/20 16:31 Lactobacillus Acidophilus [Probiotic] PO TID PRN Abdominal Pain Non-Formulary Medication 1 tab 10/08/20 09:00 Multivitamin PO DAILY ASAEL Non-Formulary Medication 10 mg 10/08/20 09:00 Omeprazole PO DAILY ASAEL Non-Formulary Medication 20 mg 10/07/20 21:00 Tamoxifen PO BEDTIME ASAEL Potassium Chloride 20 meq 10/08/20 09:00 Potassium Chloride 20 Meq Tab PO DAILY [facility] Promethazine HCl/Codeine 10 ml 10/07/20 16:31 Promethazine/Codeine Syrup 6.25/10 Mg/5 Ml Disp.Syringe PO Q6H PRN Cough Rivaroxaban 20 mg 10/07/20 21:00 Rivaroxaban 10 Mg Tablet PO BEDTIME [facility] Ropinirole HCl 1 mg 10/07/20 21:00 Ropinirole Hcl 1 Mg Tablet PO BEDTIME ASAEL Sodium Chloride 1 syr 10/07/20 13:49 0.9% Sodium Chloride 10 Ml Disp.Syrin IVF PRN PRN To flush IV Discontinued Medications Generic Name Dose Route Start Last Admin Trade Name Freq PRN Reason Stop Dose Admin Albuterol Sulfate 2 puff 10/07/20 13:59 10/07/20 14:19 Albuterol Sulfate (Ventolin Hfa) 18 Gm 1 Puff With Spacer IH 10/07/20 14:00 2 puff ONCE STA Administration Ipratropium [place] 2 puff 10/07/20 13:59 10/07/20 14:20 Ipratropium [place] 12.9 Gm Hfa Inhaler Per Puff With Spacer IH 10/07/20 14:00 2 puff ONCE STA Administration Methylprednisolone Sodium Succinate 125 mg 10/07/20 13:59 10/07/20 15:33 Methylprednisolone Sod Succ/Pf 125 Mg/2 Ml Vial IVP 10/07/20 14:00 125 mg ONCE STA Administration Vital Signs: Temp Pulse Resp BP Pulse Ox 10/07/20 13:30 97.0 F L 77 14 148/81 H 81 L Discharge Plan Discharge Patient Disposition: ADMITTED INPATIENT Discharge Problem: Chronic obstructive pulmonary disease Qualifiers: COPD type: unspecified COPD Qualified Code(s): J44.9 - Chronic obstructive pulmonary disease, unspecified ED Provider: PRECIOUS THIBODEAUX Condition: Good Physician Progress Note: []Pt was d/w Dr Wray and admitted: see admission orders.
[2020-10-07] MEDS ORDERED: ATROPINE SULFATE PFS IVP PRN (17:14)
[2020-10-07] MEDS ORDERED: NITROSTAT SL PRN (17:14)
[2020-10-07] MEDS ORDERED: TYLENOL PO PRN (17:14)
[2020-10-07 17:28] VITALS: BMI 15.0
[2020-10-07] MEDS: VENTOLIN HFA (PER PUFF-WITH SPACER) IH SCH ×2 (18:19→23:50)
[2020-10-07] MEDS: ATROVENT HFA INHALER (PER PUFF-WITH SPACER) IH SCH ×2 (18:20→23:50)
[2020-10-07] MEDS: TAMOXIFEN 20 MG PO SCH (20:59)
[2020-10-07] MEDS: XARELTO PO SCH (21:00)
[2020-10-07] MEDS: ATIVAN PO SCH (21:00)
[2020-10-07] MEDS: REQUIP PO SCH (21:00)
[2020-10-07] MEDS: SYMBICORT 160-4.5 MCG INHALER IH SCH (21:01)
[2020-10-07] MEDS: VISTARIL PO PRN (21:44)
[2020-10-07] MEDS: ZITHROMAX PO SCH (21:44)
[2020-10-08] MEDS: ATROVENT HFA INHALER (PER PUFF-WITH SPACER) IH SCH ×4 (05:10→22:30)
[2020-10-08] MEDS: VENTOLIN HFA (PER PUFF-WITH SPACER) IH SCH ×4 (05:10→22:30)
[2020-10-08 05:22] LABS: BASOPHILS % (AUTO) 0.1 % (0.0-3.0); HEMATOCRIT 39.8 % (37.0-47.0); HEMOGLOBIN 13.2 g/dl (12.0-16.0); IMMATURE GRANULOCYTE % (AUTO) 0.3 % (0.0-5.0); LYMPHOCYTES # (AUTO) 0.9 K/uL (0.60-3.4); LYMPHOCYTES % (AUTO) 9.9 (10.0-50.0); MEAN CORPUSCULAR HEMOGLOBIN 31.7 pg (27.0-31.0); MEAN CORPUSCULAR HGB CONC 33.2 (31.8-35.4); MEAN CORPUSCULAR VOLUME 95.4 fl (81.0-99.0); MONOCYTES # (AUTO) 0.4 K/uL (0.4-2.0); MONOCYTES % (AUTO) 4.3 (0-10); NEUTROPHILS # (AUTO) 7.9 K/ul (2.0-6.9); NEUTROPHILS % (AUTO) 85.4 % (42.2-75.2); PLATELET COUNT 222 10^3/uL (140-440); RDW COEFFICIENT OF VARIATION 12.4 % (11.6-14.8); RED BLOOD COUNT 4.17 10^6/ul (4.20-5.40)
[2020-10-08 05:32] LABS: ALBUMIN 4.17 g/dL (3.5-5.0); ALKALINE PHOSPHATASE 99.4 U/L (53-141); ASPARTATE AMINO TRANSFERASE 25.3 U/L (14-36); BILIRUBIN,TOTAL 0.45 mg/dL (0.2-1.3); BLOOD UREA NITROGEN 17.9 mg/dL (7-17); CALCIUM 9.46 mg/dL (8.4-10.2); CARBON DIOXIDE 35.2 mmol/L (22-30.0); CHLORIDE 97.1 mmol/L (98-107); CREATININE 0.82 mg/dL (0.60-1.30); GLUCOSE 111.7 mg/dL (74-106); POTASSIUM 4.41 mmol/L (3.5-5.1); SODIUM 137.6 mmol/L (134.5-145); TOTAL PROTEIN 7.75 g/dL (6.3-8.2)
[2020-10-08] MEDS: PRILOSEC PO SCH (05:39)
[2020-10-08] MEDS: SYNTHROID PO SCH (05:39)
[2020-10-08] MEDS: LASIX TAB PO SCH (05:39)
[2020-10-08] MEDS ORDERED: ZOFRAN 4 MG/2 ML IVP PRN (08:35)
[2020-10-08] MEDS ORDERED: OMEPRAZOLE 10 MG PO SCH (09:00)
[2020-10-08] MEDS ORDERED: NON-FORMULARY MEDICATION (Multivitamin Tablet) PO SCH (09:00)
--- NOTE | 2020-10-08 09:01 | PCM.PROG ---
Attending Provider: ATTENDING PROVIDER: Dr. JACQUIE WRAY This patient is seen with Lia Da Silva, Nurse Practitioner. DATE OF SERVICE: 10/08/20 SUBJECTIVE: This 79 year old /WHITE F was hospitalized 10/07/20. The patient is resting comfortably. States she feels more short of breath today than yesterday. She has a long history of COPD. Complaining of nausea. REVIEW OF SYSTEMS: CONSTITUTIONAL: No night sweats. No fatigue, malaise, lethargy. No fever or chills. HEENT: Eyes: No visual changes. No eye pain. No eye discharge. ENT: No runny nose. No epistaxis. No sinus pain. No odynophagia. No congestion. RESPIRATORY: No cough, no congestion. No hemoptysis. Shortness of breath. CARDIOVASCULAR: No angina symptoms. No CHF symptoms. No atypical chest pain for CAD. No palpitations. No orthopnea.. GASTROINTESTINAL: No abdominal pain. Nausea. No diarrhea or constipation. No hematemesis. No hematochezia. GENITOURINARY: No urgency. No frequency. No dysuria. No hematuria. No obstructive symptoms. No discharge. No pain. No significant abnormal bleeding. MUSCULOSKELETAL: No musculoskeletal pain; no joint swelling. NEUROLOGICAL: Awake, alert, oriented to time, place and person. No headache. No neck pain. No syncope. No seizures. No dizziness. PSYCHIATRIC: Not anxious. No depression. No suicidal thoughts. No homicidal thoughts. SKIN: No rash. No lesions. No wounds. ENDOCRINE: No unexplained weight loss. No weight gain. HEMATOLOGIC/LYMPHATIC: No anemia. No purpura. No petechiae. No prolonged or excessive bleeding. No palpable lymph nodes. PHYSICAL EXAMINATION: GENERAL: The patient is awake, alert and oriented, lying in bed in no distress. VITAL SIGNS: Temperature 96.9 F, Pulse 68, Respiratory Rate 20, BP 112/72, Pulse Ox 95% HEENT: Head normocephalic, atraumatic. Eyes: Extraocular muscles are intact. Pupils are equal, round and reactive to light and accommodation. Ears: No lesions. Nose appeared normal. Throat: No exudate or erythema. NECK: Supple. No JVD, no carotid bruit. No lymphadenopathy or thyromegaly. LUNGS: Diminished breath sounds. Clear to auscultation. Percussion note normal. Chest symmetrical. HEART: S1, S2, no S3. No murmurs. No cyanosis or clubbing. No ascites. Pulses: Dorsalis pedis and posterior tibial pulses +1 to +2 both sides. ABDOMEN: Soft. Non-tender. Bowel sounds active. No CVA tenderness. No mass felt. EXTREMITIES: No edema. Full range of motion of all extremities, equal. NEUROLOGIC: No focal deficit. Cranial nerves II through XII are grossly intact. No headache. No double vision. SKIN: Not dry. Intact. Turgor-normal. LYMPHATIC: No palpable lymph nodes/no lymphedema. MUSCULOSKELETAL: Normal joints with no swelling. Muscle tone is normal. LAB REVIEW: 10/08/20 05:15 10/08/20 05:15 10/08/20 05:15: Sodium 137.6, Potassium 4.41, Chloride 97.1 L, Carbon Dioxide 35.2 H, Anion Gap 9.71, BUN 17.9 H, Creatinine 0.82, Estimated GFR (MDRD) 67.00, BUN/Creatinine Ratio 21.82, Glucose 111.7 H, Calcium 9.46, Total Bilirubin 0.45, AST 25.3, ALT 17.0, Alkaline Phosphatase 99.4, Total Protein 7.75, Albumin 4.17, Globulin 3.58, Albumin/Globulin Ratio 1.16 10/08/20 05:15: WBC 9.20, RBC 4.17 L, Hgb 13.2, Hct 39.8, MCV 95.4, MCH 31.7 H, MCHC 33.2, RDW Coeff of Karina 12.4, Plt Count 222, Immature Gran % (Auto) 0.3, Neut % (Auto) 85.4 H, Lymph % (Auto) 9.9 L, Castro % (Auto) 4.3, Eos % (Auto) 0.0, Baso % (Auto) 0.1, Neut # (Auto) 7.9 H, Lymph # (Auto) 0.9, [place] # (Auto) 0.4, Eos # (Auto) 0.0, Baso # (Auto) 0.0, Immature Gran # (Auto) 0.0 10/07/20 14:30: Adenovirus (PCR) Not detected, B. pertussis DNA (PCR) Not detected, B.parapertussis DNA PCR Not detected, C. pneumoniae DNA (PCR) Not detected, Coronavirus OC43 (PCR) Not detected, Coronavirus HKU1 (PCR) Not detected, Coronavirus 229E (PCR) Not detected, Coronavirus NL63 (PCR) Not detected, Human Metapneumovir PCR Not detected, Influenza Type A (PCR) Not detected, Influenza B (RT-PCR) Not detected, M. pneumoniae (PCR) Not detected, Parainfluenza 1 (PCR) Not detected, Parainfluenza 2 (PCR) Not detected, Parainfluenza 3 (PCR) Not detected, Parainfluenza 4 (PCR) Not detected, RSV (PCR) Not detected, Entero/Rhino (PCR) Not detected, SARS-CoV-2 (PCR) Not detected 10/07/20 14:03: Sodium 137.8, Potassium 3.92, Chloride 98.8, Carbon Dioxide 34.8 H, Anion Gap 8.12, BUN 16.8, Creatinine 1.03, Estimated GFR (MDRD) 52.00, BUN/Creatinine Ratio 16.31, Glucose 119.2 H, Calcium 9.16, Total Bilirubin 0.42, AST 24.4, ALT 16.5, Alkaline Phosphatase 103.0, Troponin I < 0.012, NT-Pro-B Natriuret Pep 291.000, Total Protein 7.43, Albumin 3.98, Globulin 3.45, Al bumin/Globulin Ratio 1.15 10/07/20 14:03: WBC 8.93, RBC 3.92 L, Hgb 12.3, Hct 37.0, MCV 94.4, MCH 31.4 H, MCHC 33.2, RDW Coeff of Karina 12.4, Plt Count 219, Immature Gran % (Auto) 0.3, Neut % (Auto) 82.8 H, Lymph % (Auto) 11.1, [place] % (Auto) 5.4, Eos % (Auto) 0.2, Baso % (Auto) 0.2, Neut # (Auto) 7.4 H, Lymph # (Auto) 1.0, [place] # (Auto) 0.5, Eos # (Auto) 0.0, Baso # (Auto) 0.0, Immature Gran # (Auto) 0.0 10/07/20 13:50: Puncture Site Rr, Base Excess 11.8 H, O2 Saturation 98.2 H, ABG pH 7.42, ABG pCO2 56.0 H, ABG pO2 107.0 H, ABG HCO3 36.3 H, ABG Total CO2 38.0 H , Pj Test Y, Hemoglobin 0.4, Oxyhemoglobin 96.4, Carboxyhemoglobin 0.9, Total Hemoglobin 13.0, O2 Delivery Device Cannula, Oxygen Liter Flow 2.50, FiO2 % ASSESSMENT: Please see below. 1. Acute COPD exacerbation 2. Chronic respiratory failure 3. Nausea 4. GERD PLAN: 1. Zofran 4mg Q 6 hours PRN 2. Solu-medrol 100mg IV Q 12 hours. Plan and coordination of the patient's care discussed in the presence of Automatic Die Cutting Machine Operator and nurse. SCRIBED BY: Dimas GR scribed while in presence of service performed by Dr. Wray/Lia Da Silva APRN on 10/08/20 ([id number])
[2020-10-08 09:21] LABS: ABG PH 7.44 (7.35-7.45)
[2020-10-08] MEDS: CELEXA PO SCH (09:45)
[2020-10-08] MEDS: LIPITOR PO SCH (09:45)
[2020-10-08] MEDS: ATIVAN PO SCH ×2 (09:45→21:35)
[2020-10-08] MEDS: SINGULAIR PO SCH (09:45)
[2020-10-08] MEDS: ZITHROMAX PO SCH (09:45)
[2020-10-08] MEDS: MULTIVITAMIN TABLET PO SCH (09:45)
[2020-10-08] MEDS: K-DUR PO SCH (09:45)
[2020-10-08] MEDS: TENORMIN PO SCH (09:45)
[2020-10-08] MEDS: SOLU-MEDROL 125 MG IVP SCH ×2 (09:46→21:29)
[2020-10-08] MEDS: SYMBICORT 160-4.5 MCG INHALER IH SCH ×2 (09:54→21:36)
[2020-10-08] MEDS: VISTARIL PO PRN (18:19)
[2020-10-08] MEDS: XARELTO PO SCH (21:34)
[2020-10-08] MEDS: REQUIP PO SCH (21:35)
[2020-10-08] MEDS: REGLAN PO SCH (21:35)
[2020-10-08] MEDS: TAMOXIFEN 20 MG PO SCH (21:39)
[2020-10-09] MEDS: VENTOLIN HFA (PER PUFF-WITH SPACER) IH SCH ×4 (04:40→23:35)
[2020-10-09] MEDS: ATROVENT HFA INHALER (PER PUFF-WITH SPACER) IH SCH ×4 (04:40→23:35)
[2020-10-09] MEDS: LASIX TAB PO SCH (06:00)
[2020-10-09] MEDS: SYNTHROID PO SCH (06:00)
[2020-10-09] MEDS: PRILOSEC PO SCH (06:00)
[2020-10-09] MEDS: SOLU-MEDROL 125 MG IVP SCH ×2 (08:30→21:31)
[2020-10-09] MEDS: MULTIVITAMIN TABLET PO SCH (08:45)
[2020-10-09] MEDS: K-DUR PO SCH (08:45)
[2020-10-09] MEDS: SYMBICORT 160-4.5 MCG INHALER IH SCH ×2 (08:46→21:34)
[2020-10-09] MEDS: SINGULAIR PO SCH (08:46)
[2020-10-09] MEDS: TENORMIN PO SCH (08:46)
[2020-10-09] MEDS: LIPITOR PO SCH (08:46)
[2020-10-09] MEDS: ATIVAN PO SCH ×2 (08:46→21:30)
[2020-10-09] MEDS: ZITHROMAX PO SCH (08:46)
[2020-10-09] MEDS: CELEXA PO SCH (08:46)
[2020-10-09 09:01] LABS: BASOPHILS % (AUTO) 0.1 % (0.0-3.0); HEMATOCRIT 37.8 % (37.0-47.0); HEMOGLOBIN 12.8 g/dl (12.0-16.0); IMMATURE GRANULOCYTE # (AUTO) 0.1 (0.0-1.0); IMMATURE GRANULOCYTE % (AUTO) 0.4 % (0.0-5.0); LYMPHOCYTES # (AUTO) 0.9 K/uL (0.60-3.4); LYMPHOCYTES % (AUTO) 6.7 (10.0-50.0); MEAN CORPUSCULAR HEMOGLOBIN 31.5 pg (27.0-31.0); MEAN CORPUSCULAR HGB CONC 33.9 (31.8-35.4); MEAN CORPUSCULAR VOLUME 93.1 fl (81.0-99.0); MONOCYTES # (AUTO) 0.6 K/uL (0.4-2.0); MONOCYTES % (AUTO) 4.4 (0-10); NEUTROPHILS # (AUTO) 11.7 K/ul (2.0-6.9); NEUTROPHILS % (AUTO) 88.4 % (42.2-75.2); PLATELET COUNT 276 10^3/uL (140-440); RDW COEFFICIENT OF VARIATION 12.7 % (11.6-14.8); RED BLOOD COUNT 4.06 10^6/ul (4.20-5.40); WHITE BLOOD COUNT 13.18 K/ul (4.6-10.2)
[2020-10-09 09:10] LABS: ALANINE AMINOTRANSFERASE 18.9 U/L (0-35); ALBUMIN 4.18 g/dL (3.5-5.0); ALKALINE PHOSPHATASE 95.2 U/L (53-141); ASPARTATE AMINO TRANSFERASE 28.2 U/L (14-36); BILIRUBIN,TOTAL 0.58 mg/dL (0.2-1.3); BLOOD UREA NITROGEN 22.6 mg/dL (7-17); CALCIUM 9.29 mg/dL (8.4-10.2); CARBON DIOXIDE 30.3 mmol/L (22-30.0); CHLORIDE 97.5 mmol/L (98-107); CREATININE 0.85 mg/dL (0.60-1.30); GLUCOSE 121.3 mg/dL (74-106); POTASSIUM 3.92 mmol/L (3.5-5.1); SODIUM 136.9 mmol/L (134.5-145); TOTAL PROTEIN 7.6 g/dL (6.3-8.2)
--- NOTE | 2020-10-09 09:45 | HP ---
DATE OF SERVICE: 10/07/2020 REASON FOR HOSPITALIZATION/HISTORY OF PRESENT ILLNESS: 79 year old white female who is brought to the emergency room complaining of weakness and shortness of breath. It has been worsening over the past several days. She has a history of chronic lung disease. 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 No fatigue, malaise, lethargy. No fever or chills. HEENT: Eyes: No visual changes. No eye pain. No eye discharge. ENT: No runny nose. No epistaxis. No sinus pain. No sore throat. No odynophagia. No ear pain. No congestion. RESPIRATORY: No cough, no congestion. No hemoptysis. No shortness of breath. CARDIOVASCULAR: No angina symptoms. No CHF symptoms. No atypical chest pain for CAD. No palpitations. No PND. No orthopnea. GASTROINTESTINAL: No abdominal pain. No nausea or vomiting. No diarrhea or constipation. No hematemesis. No hematochezia. GENITOURINARY: No urgency. No frequency. No dysuria. No hematuria. No obstructive symptoms. No discharge. No pain. No significant abnormal bleeding. MUSCULOSKELETAL: No musculoskeletal pain. No joint swelling. No arthritis. NEUROLOGICAL: No headache. No neck pain. No syncope. No seizures. No dizziness. PSYCHIATRIC: Not anxious. No depression. No suicidal thoughts. No homicidal thoughts. SKIN: No rash. No lesions. No wounds. ENDOCRINE: No unexplained weight loss. No weight gain. HEMATOLOGIC/LYMPHATIC: No anemia. No purpura. No petechiae. No prolonged or excessive bleeding. No palpable lymph nodes. PERSONAL/FAMILY/SOCIAL HISTORY: She lives at home with her . Non-smoker. No alcohol or illicit drug use. MEDICATIONS: Reglan 10mg PO BEDTIME Lorazepam 1mg PO BID Probiotic one capsule PO TID PRN Celexa 20nmg PO daily Atenolol 50mg PO daily Singulair 10mg PO daily Lipitor 10mg Po daily Xarelto 20mg PO BEDTIME Multivitamin PO daily Prilosec 10mg PO daily Synthroid 75mcg PO QDAC Vistaril 25mg PO TID PRN Requip 1mg PO BEDTIME Tamoxifen 20mg PO BEDTIME Symbicort 160-4.5mcg two puff inhalation K-Tab 20meq PO daily Proventil 90mcg two puff inhalation QID Furosemide 20mg PO QDAC ALLERGIES: No known allergies PHYSICAL EXAMINATION: GENERAL: The patient is alert and oriented. HEENT: Head normocephalic, atraumatic. Eyes: Extraocular muscles are intact. Pupils are equal, round and reactive to light and accommodation. Ears: No lesions. Nose appeared normal. Throat: No exudate or erythema. NECK: Supple. No JVD, no carotid bruit. No lymphadenopathy or thyromegaly. LUNGS: Diminished breath sounds. Bilateral expiratory wheezing. Clear to auscultation. Percussion note normal. Chest symmetrical. HEART: S1, S2, no S3. No murmur. No cyanosis or clubbing. No ascites. Pulses: Dorsalis pedis and posterior tibial pulses +1 to +2 bilaterally. ABDOMEN: Soft. Nontender. Bowel sounds active. No CVA tenderness. No mass felt. EXTREMITIES: No edema. Full range of motion of all extremities, equal. NEUROLOGIC: No focal deficit. Cranial nerves II through XII are grossly intact. No headache, no double vision or headache. SKIN: Not dry. Intact. Turgor - normal. LYMPHATIC: No palpable lymph nodes/no lymphedema. MUSCULOSKELETAL: Normal joints with no swelling. Muscle tone is normal. LABS: WBC 8.9, hgb 12.3, hct 37, plt count 219, sodium 137, potassium 3.9, BUN 16, creatinine 1.03, glucose 119, ABG on 2.5 liters showed pH 7.42, pCO2 56, pO2 107, bicarb of 36. Respiratory panel was normal. CT of the chest showed no acute findings, stable appearance of interstitial lung disease. ASSESSMENT: 1. Acute COPD exacerbation 2. Chronic respiratory failure 3. Shortness of breath 4. Hypertension PLAN: 1. We will admit 2. Routine telemetry orders 3. CBC and CMP daily 4. Continue all home medication 5. Start on Solu-Medrol 100mg IV Q 12 hours 6. Albuterol inhaler two puffs TID scheduled 7. Symbicort inhaler two puffs BID 8. Zithromax 500mg PO daily times three days 9. Oxygen at 1-3 liters PRN repeat ABGs in the morning Will follow closely. TIME SPENT: More than 70 minutes. MTDD
--- NOTE | 2020-10-09 10:21 | PN ---
DATE OF SERVICE: 10/07/2020 SUBJECTIVE: The patient was admitted through the emergency room with complaint of being short of breath. The patient's workup was entirely negative for any new findings but the patient has chronic bronchitis exacerbation. The patient was given IV Solu-Cortef and NEBS treatment. Condition improved some. Her oxygen pO2 was more than 100 on 2.5 liters of oxygen with pCO2 of nearly 50. Cardiovascular status seems to be stable. The patient is panicking at times with complaint of being short of breath. She has been calling for different complaints for past one week in the office. We will hospitalize the patient and treat her with antibiotics, steroids and NEBS. We will reassure about her cardiovascular and respiratory status. The patient has severe chronic lung disease with bronchiectasis that is more or less stable. The patient's main problem is she is sedentary lifestyle and the BMI is more than 30. TIME SPENT: More than 30 minutes. Plan and coordination of the patient's care discussed in the presence of nurse. DHAVAL
--- NOTE | 2020-10-09 11:29 | PN ---
DATE OF SERVICE: 10/08/2020 SUBJECTIVE: The patient has stable COPD with bronchitis. The patient is on steroids and antibiotics. Strongly advised to get up and walk around and join pulmonary rehab. CONDITION: Stable. TIME SPENT: More than 30 minutes. Plan and coordination of the patient's care discussed in the presence of nurse. DHAVAL
[2020-10-09] MEDS: REGLAN PO SCH (21:30)
[2020-10-09] MEDS: XARELTO PO SCH (21:30)
[2020-10-09] MEDS: REQUIP PO SCH (21:31)
[2020-10-09] MEDS: TAMOXIFEN 20 MG PO SCH (21:33)
[2020-10-10] MEDS: VENTOLIN HFA (PER PUFF-WITH SPACER) IH SCH ×2 (05:05→11:13)
[2020-10-10] MEDS: ATROVENT HFA INHALER (PER PUFF-WITH SPACER) IH SCH ×2 (05:05→11:13)
[2020-10-10 05:35] VITALS: BP 116/70; TEMP 97.6
[2020-10-10] MEDS: PRILOSEC PO SCH (05:48)
[2020-10-10] MEDS: SYNTHROID PO SCH (05:49)
[2020-10-10] MEDS: LASIX TAB PO SCH (05:49)
[2020-10-10 07:15] LABS: BASOPHILS % (AUTO) 0.1 % (0.0-3.0); HEMATOCRIT 38.3 % (37.0-47.0); HEMOGLOBIN 12.6 g/dl (12.0-16.0); IMMATURE GRANULOCYTE # (AUTO) 0.1 (0.0-1.0); IMMATURE GRANULOCYTE % (AUTO) 0.5 % (0.0-5.0); LYMPHOCYTES # (AUTO) 0.7 K/uL (0.60-3.4); LYMPHOCYTES % (AUTO) 5.2 (10.0-50.0); MEAN CORPUSCULAR HGB CONC 32.9 (31.8-35.4); MEAN CORPUSCULAR VOLUME 94.1 fl (81.0-99.0); MONOCYTES # (AUTO) 0.5 K/uL (0.4-2.0); MONOCYTES % (AUTO) 3.2 (0-10); NEUTROPHILS # (AUTO) 12.6 K/ul (2.0-6.9); PLATELET COUNT 288 10^3/uL (140-440); RDW COEFFICIENT OF VARIATION 12.5 % (11.6-14.8); RED BLOOD COUNT 4.07 10^6/ul (4.20-5.40); WHITE BLOOD COUNT 13.86 K/ul (4.6-10.2)
[2020-10-10 07:26] LABS: ALBUMIN 4.18 g/dL (3.5-5.0); ALKALINE PHOSPHATASE 91.5 U/L (53-141); ASPARTATE AMINO TRANSFERASE 32.9 U/L (14-36); BILIRUBIN,TOTAL 0.56 mg/dL (0.2-1.3); BLOOD UREA NITROGEN 24.8 mg/dL (7-17); CALCIUM 9.26 mg/dL (8.4-10.2); CARBON DIOXIDE 30.3 mmol/L (22-30.0); CREATININE 0.85 mg/dL (0.60-1.30); GLUCOSE 133.2 mg/dL (74-106); POTASSIUM 3.88 mmol/L (3.5-5.1); TOTAL PROTEIN 7.56 g/dL (6.3-8.2)
[2020-10-10 07:33] LABS: ALANINE AMINOTRANSFERASE 18.9 U/L (0-35)
[2020-10-10] MEDS: SINGULAIR PO SCH (08:52)
[2020-10-10] MEDS: TENORMIN PO SCH (08:52)
[2020-10-10] MEDS: ATIVAN PO SCH (08:52)
[2020-10-10] MEDS: CELEXA PO SCH (08:52)
[2020-10-10] MEDS: LIPITOR PO SCH (08:52)
[2020-10-10] MEDS: K-DUR PO SCH (08:52)
[2020-10-10] MEDS: MULTIVITAMIN TABLET PO SCH (08:52)
[2020-10-10] MEDS: SYMBICORT 160-4.5 MCG INHALER IH SCH (08:53)
--- NOTE | 2020-10-10 09:09 | PCM.PROG ---
Attending Provider: ATTENDING PROVIDER: Dr. JACQUIE WRAY This patient is seen with Lia Da Silva, Nurse Practitioner. DATE OF SERVICE: 10/10/20 SUBJECTIVE: This 79 year old /WHITE F was hospitalized 10/07/20. The patient is resting comfortably. She has been eating well. Up and about. REVIEW OF SYSTEMS: CONSTITUTIONAL: No night sweats. No fatigue, malaise, lethargy. No fever or chills. HEENT: Eyes: No visual changes. No eye pain. No eye discharge. ENT: No runny nose. No epistaxis. No sinus pain. No odynophagia. No congestion. RESPIRATORY: No cough, no congestion. No hemoptysis. Shortness of breath as usual. CARDIOVASCULAR: No angina symptoms. No CHF symptoms. No atypical chest pain for CAD. No palpitations. No orthopnea.. GASTROINTESTINAL: No abdominal pain. No nausea or vomiting. No diarrhea or constipation. No hematemesis. No hematochezia. GENITOURINARY: No urgency. No frequency. No dysuria. No hematuria. No obstructive symptoms. No discharge. No pain. No significant abnormal bleeding. MUSCULOSKELETAL: No musculoskeletal pain; no joint swelling. NEUROLOGICAL: Awake, alert, oriented to time, place and person. No headache. No neck pain. No syncope. No seizures. No dizziness. PSYCHIATRIC: Not anxious. No depression. No suicidal thoughts. No homicidal thoughts. SKIN: No rash. No lesions. No wounds. ENDOCRINE: No unexplained weight loss. No weight gain. HEMATOLOGIC/LYMPHATIC: No anemia. No purpura. No petechiae. No prolonged or excessive bleeding. No palpable lymph nodes. PHYSICAL EXAMINATION: GENERAL: The patient is awake, alert and oriented, lying in bed in no distress. VITAL SIGNS: Temperature 97.6 F, Pulse 66, Respiratory Rate 16, BP 116/70, Pulse Ox 96% HEENT: Head normocephalic, atraumatic. Eyes: Extraocular muscles are intact. Pupils are equal, round and reactive to light and accommodation. Ears: No lesions. Nose appeared normal. Throat: No exudate or erythema. NECK: Supple. No JVD, no carotid bruit. No lymphadenopathy or thyromegaly. LUNGS: Diminished breath sounds. Clear to auscultation. Percussion note normal. Chest symmetrical. HEART: S1, S2, no S3. No murmurs. No cyanosis or clubbing. No ascites. Pulses: Dorsalis pedis and posterior tibial pulses +1 to +2 both sides. ABDOMEN: Soft. Non-tender. Bowel sounds active. No CVA tenderness. No mass felt. EXTREMITIES: No edema. Full range of motion of all extremities, equal. NEUROLOGIC: No focal deficit. Cranial nerves II through XII are grossly intact. No headache. No double vision. SKIN: Not dry. Intact. Turgor-normal. LYMPHATIC: No palpable lymph nodes/no lymphedema. MUSCULOSKELETAL: Normal joints with no swelling. Muscle tone is normal. LAB REVIEW: 10/10/20 07:10 10/10/20 07:10 10/10/20 07:10: Sodium 136.0, Potassium 3.88, Chloride 97.0 L, Carbon Dioxide 3 0.3 H, Anion Gap 12.58, BUN 24.8 H, Creatinine 0.85, Estimated GFR (MDRD) 64.00, BUN/Creatinine Ratio 29.17, Glucose 133.2 H, Calcium 9.26, Total Bilirubin 0.56, AST 32.9, ALT 18.9, Alkaline Phosphatase 91.5, Total Protein 7.56, Albumin 4.18, Globulin 3.38, Albumin/Globulin Ratio 1.23 10/10/20 07:10: WBC 13.86 H, RBC 4.07 L, Hgb 12.6, Hct 38.3, MCV 94.1, MCH 31.0, MCHC 32.9, RDW Coeff of Karina 12.5, Plt Count 288, Immature Gran % (Auto) 0.5, Neut % (Auto) 91.0 H, Lymph % (Auto) 5.2 L, [place] % (Auto) 3.2, Eos % (Auto) 0.0, Baso % (Auto) 0.1, Neut # (Auto) 12.6 H, Lymph # (Auto) 0.7, [place] # (Auto) 0.5, Eos # (Auto) 0.0, Baso # (Auto) 0.0, Immature Gran # (Auto) 0.1 10/09/20 08:52: Sodium 136.9, Potassium 3.92, Chloride 97.5 L, Carbon Dioxide 30.3 H, Anion Gap 13.02, BUN 22.6 H, Creatinine 0.85, Estimated GFR (MDRD) 64.00, BUN/Creatinine Ratio 26.58, Glucose 121.3 H, Calcium 9.29, Total Bilirubin 0.58, AST 28.2, ALT 18.9, Alkaline Phosphatase 95.2, Total Protein 7.60, Albumin 4.18, Globulin 3.42, Albumin/Globulin Ratio 1.22 10/09/20 08:52: WBC 13.18 H, RBC 4.06 L, Hgb 12.8, Hct 37.8, MCV 93.1, MCH 31.5 H, MCHC 33.9, RDW Coeff of Karina 12.7, Plt Count 276, Immature Gran % (Auto) 0.4, Neut % (Auto) 88.4 H, Lymph % (Auto) 6.7 L, [place] % (Auto) 4.4, Eos % (Auto) 0.0, Baso % (Auto) 0.1, Neut # (Auto) 11.7 H, Lymph # (Auto) 0.9, [place] # (Auto) 0.6, Eos # (Auto) 0.0, Baso # (Auto) 0.0, Immature Gran # (Auto) 0.1 ASSESSMENT: Please see below. 1. Acute COPD exacerbation 2. Chronic respiratory failure 3. Hiatal hernia PLAN: 1. Discharge home 2. The patient has O2 at home to continue NEB treatments at home 3. Prednisone 10mg BID for 5 days 4. Followup next week or the week after 5. Instructed the patient is to eat small frequent meals. Plan and coordination of the patient's care discussed in the presence of Control Operator and nurse. SCRIBED BY: Dimas GR scribed while in presence of service performed by Dr. Wray/Lia Da Silva APRN on 10/10/20 ([id number])
--- NOTE | 2020-10-10 11:04 | CM.DICTOOL ---
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) OBESITY, BREAST CANCER, LEFT UTERINE CANCER FIBROMYALGIA OSTEOARTHRITIS, RIGHT KNEE HIATAL HERNIA MASTECTOMY, LEFT HYSTERECTOMY ECHOCARDIOGRAM 08/2020 [facility] ENLARGED LEFT ATRIAL AND RIGHT VENTRICLE CAVITIES CALCIFIC AORTIC AND MITRAL VALVES LVEF 69% LAST VITALS Temp Pulse Resp BP Pulse Ox 97.6 F 66 16 116/70 96 10/10/20 05:34 10/10/20 05:34 10/10/20 05:34 10/10/20 05:34 10/10/20 05:53 TAKE THESE MEDICATIONS AT HOME Albuterol Sulfate (Albuterol Sulfate (Ventolin Hfa) 18 Gm 1 Puff With Spacer) 2 puff IH RTQ6H [facility] Last Admin: 10/10/20 05:05 Dose: 2 puff Documented by: Atenolol (Atenolol 50 Mg Tablet) 50 mg PO DAILY [facility] Last Admin: 10/10/20 08:52 Dose: 50 mg Documented by: Atorvastatin Calcium (Atorvastatin Calcium 10 Mg Tablet) 10 mg PO DAILY [facility] Last Admin: 10/10/20 08:52 Dose: 10 mg Documented by: Budesonide/Formoterol Fumarate (Budesonide/Formoterol Fumarate 160/4.5 Mcg Inhaler) 2 puff IH BID [facility] Last Admin: 10/10/20 08:53 Dose: 2 puff Documented by: Citalopram Hydrobromide (Citalopram Hydrobromide 20 Mg Tablet) 20 mg PO DAILY [facility] Last Admin: 10/10/20 08:52 Dose: 20 mg Documented by: Furosemide (Furosemide 20 Mg Tablet) 20 mg PO QDAC [facility] Last Admin: 10/10/20 05:49 Dose: 20 mg Documented by: Hydroxyzine Pamoate (Hydroxyzine Pamoate 25 Mg Capsule) 25 mg PO TID PRN PRN Reason: Abdominal Pain Last Admin: 10/08/20 18:19 Dose: 25 mg Documented by: Levothyroxine Sodium (Levothyroxine Sodium 75 Mcg Tablet) 75 mcg PO QDAC [facility] Last Admin: 10/10/20 05:49 Dose: 75 mcg Documented by: Lorazepam (Lorazepam 1 Mg Tablet) 1 mg PO BID [facility] Last Admin: 10/10/20 08:52 Dose: 1 mg Documented by: Metoclopramide HCl (Metoclopramide Hcl 10 Mg Tablet) 10 mg PO BEDTIME [facility] Last Admin: 10/09/20 21:30 Dose: 10 mg Documented by: Montelukast Sodium (Montelukast Sodium 10 Mg Tablet) 10 mg PO DAILY [facility] Last Admin: 10/10/20 08:52 Dose: 10 mg Documented by: Multivitamins (Multivitamin 1 Tab) 1 tab PO DAILY [facility] Last Admin: 10/10/20 08:52 Dose: 1 tab Documented by: Nitroglycerin (Nitroglycerin 0.4 Mg Tab.Subl) 0.4 mg SL Q5MIN X 3 DOSES PRN PRN Reason: Chest Pain Non-Formulary Medication (Lactobacillus Acidophilus [Probiotic]) 1 cap PO TID PRN PRN Reason: Abdominal Pain Non-Formulary Medication (Tamoxifen) 20 mg PO BEDTIME [facility] Last Admin: 10/09/20 21:33 Dose: 20 mg Documented by: Omeprazole (Omeprazole 20 Mg Capsule.Dr) 20 mg PO QDAC [facility] Last Admin: 10/10/20 05:48 Dose: 20 mg Documented by: Potassium Chloride (Potassium Chloride 20 Meq Tab) 20 meq PO DAILYWM [facility] Last Admin: 10/10/20 08:52 Dose: 20 meq Documented by: Rivaroxaban (Rivaroxaban 10 Mg Tablet) 20 mg PO BEDTIME [facility] Last Admin: 10/09/20 21:30 Dose: 20 mg Documented by: Ropinirole HCl (Ropinirole Hcl 1 Mg Tablet) 1 mg PO BEDTIME [facility] Last Admin: 10/09/20 21:31 Dose: 1 mg Documented by: PREDNISONE 10 MG BID FOR 5 DAYS (NEW RX) ALLERGIES No Known Allergies Allergy (Verified 02/23/20 12:23) DISCONTINUED MEDICATIONS NONE NEW PRESCRIPTIONS: PREDNISONE 10 MG BID FOR 5 DAYS SMOKING: NOT APPLICABLE DISEASE SPECIFIC EDUCATION: USE OF OXYGEN; INCREASE TO 2.5 LITERS USE OF ORAL STEROIDS AND RISK OF GI IRRITATION, BONE DEMINERALIZATION HIATAL HERNIA LAB REVIEW: 10/10/20 07:10 10/10/20 07:10 10/10/20 07:10: Sodium 136.0, Potassium 3.88, Chloride 97.0 L, Carbon Dioxide 30.3 H, Anion Gap 12.58, BUN 24.8 H, Creatinine 0.85, Estimated GFR (MDRD) 64.00, BUN/Creatinine Ratio 29.17, Glucose 133.2 H, Calcium 9.26, Total Bilirubin 0.56, AST 32.9, ALT 18.9, Alkaline Phosphatase 91.5, Total Protein 7.56, Albumin 4.18, Globulin 3.38, Albumin/Globulin Ratio 1.23 10/10/20 07:10: WBC 13.86 H, RBC 4.07 L, Hgb 12.6, Hct 38.3, MCV 94.1, MCH 31.0, MCHC 32.9, RDW Coeff of Karina 12.5, Plt Count 288, Immature Gran % (Auto) 0.5, Neut % (Auto) 91.0 H, Lymph % (Auto) 5.2 L, [place] % (Auto) 3.2, Eos % (Auto) 0.0, Baso % (Auto) 0.1, Neut # (Auto) 12.6 H, Lymph # (Auto) 0.7, [place] # (Auto) 0.5, Eos # (Auto) 0.0, Baso # (Auto) 0.0, Immature Gran # (Auto) 0.1 PLAN: DISCHARGE HOME DIET: HEART HEALTHY ENCOURAGED TO EAT SMALL MEALS FREQUENTLY DURING THE DAY AVOID LARGE MEALS LIMIT CAFFEINE STAY UPRIGHT FOR AT LEAST 30 MINUTES AFTER EATING ACTIVITY: RESUME TOLERATED. ENCOURAGED TO WALK SHORT DISTANCES SEVERAL TIMES DAILY CONTINUE TO USE OXYGEN; INCREASE TO 2.5 LITERS CONTINUE TO USE SYMBICORT INHALER 2 PUFFS TWICE A DAY CONTINUE TO USE ALBUTEROL INHALER 2 PUFFS EVERY 6 HOURS NEEDED FOR SHORTNESS OF AIR/WHEEZING REFERRAL TO PULMONARY REHAB PHASE II AT [facility] (PATIENT TO BE CALLED WITH APPOINTMENT DATE/TIME) AN APPOINTMENT IS SCHEDULED FOR September AT 1:[address] WRAY/SANA POST APRN CODE STATUS: FULL CODE MRS. PARKER IS ALERT AND ORIENTED X 4. SHE IS AGREEABLE TO PLANS FOR D ISCHARGE HOME TODAY. SHE LIVES AT HOME WITH HER AND ADULT SON. SHE IS INDEPENDENT WITH ADL'S. SHE USES OXYGEN CONTINUOUSLY AT HOME AND HAS A CONCENTRATOR/ PORTABILITY AVAILABLE FOR HER USE. MRS. PARKER IS AMBULATORY IN THE ROOM WITHOUT STAFF ASSISTANCE OR USE OF ASSISTIVE DEVICE. SHE IS CONTINENT OF BOWEL AND BLADDER. HER APPETITE IS GOOD; CONSUMING 50-100% OF HER MEALS. HYDRATION STATUS IS GOOD. SKIN IS INTACT AND OPEN WOUNDS. AN AREA OF BRUISING IS NOTED TO THE RIGHT WRIST FROM LAB DRAWS. MD SANA LOVING APRN
[2020-10-10] MEDS: SOLU-MEDROL 125 MG IVP SCH (11:55)
--- NOTE | 2020-10-11 10:04 | PN ---
DATE OF SERVICE: 10/09/20 SUBJECTIVE: 79-year-old white female hospitalized with COPD exacerbation. The patient's condition seems to be improving. The patient is feeling mildly short of breath. The patient was explained about how she needs to lose weight, at least 10 to 20 lbs and how she needs to give up her sedentary lifestyle and start walking or join the pulmonary rehab. Advised to walk at least one to two miles a day. The is in the room. He agreed the patient has chronic lung disease with bronchiectasis, probably bronchial asthma in the past. PHYSICAL EXAMINATION: VITAL SIGNS: Temperature 98, pulse 68, respiratory rate 18, blood pressure 115/73, pulse ox 94%. HEENT: Head normocephalic, atraumatic. Eyes: Extraocular muscles are intact. Pupils are equal, round and reactive to light and accommodation. Ears: No lesions. Nose appeared normal. Throat: No exudate or erythema. NECK: Supple. No JVD, no carotid bruit. No lymphadenopathy or thyromegaly. LUNGS: Decreased breath sounds but clear to auscultation. Percussion note normal. Chest symmetrical. HEART: S1, S2, no S3. No murmurs. No cyanosis or clubbing. No ascites. Pulses: Dorsalis pedis and posterior tibial pulses +1 to +2 bilaterally. ABDOMEN: Soft. Nontender. Bowel sounds active. No CVA tenderness. No mass felt. EXTREMITIES: No edema. Full range of motion of all extremities, equal. NEUROLOGIC: No focal deficit. Cranial nerves II through XII are grossly intact. No headache. No double vision. SKIN: Not dry. Intact. Turgor - normal. LYMPHATIC: No palpable lymph nodes/no lymphedema. MUSCULOSKELETAL: Normal joints with no swelling. Muscle tone is normal. LABS: Hemoglobin 13.2, hematocrit 39, WBC 9,200, normal differential. Creatinine 0.8, BUN 17, potassium 4.4. ASSESSMENT: 1. Chronic lung disease. 2. Chronic respiratory failure on home oxygen. 3. The patient has bronchiectasis. PLAN: 1. Advised the patient to lose 15 to 20 lbs. Counseling for dieting done. 2. Also advised to join pulmonary rehab and do daily walking and some kind of activity on a regular basis at home. Condition otherwise stable. The patient was explained about steroids and side effects including avascular necrosis of the femoral head, osteoporosis, et cetera. TIME SPENT: More than 30 minutes. Plan and coordination of the patient's care discussed in the presence of nurse. DHAVAL
--- NOTE | 2020-10-11 12:58 | PN ---
DATE OF SERVICE: 10/10/20 SUBJECTIVE: The patient was seen with the nurse practitioner. The patient's condition has improved. Respiratory status is stable. She needs to lose weight and join pulmonary rehab. Strongly advised that she is going to be discharged on steroids and antibiotics. Condition is stable. TIME SPENT: More than 30 minutes. Plan and coordination of the patient's care discussed in the presence of nurse. DHAVAL
--- NOTE | 2020-10-11 12:59 | PN ---
BILLING 10/07/20 ADMISSION DAY LEVEL 5 10/08/20 INTERMEDIATE 10/09/20 INTERMEDIATE 10/10/20 D IN DISCHARGE MTDD
--- NOTE | 2020-10-15 11:57 | DS ---
DATE OF SERVICE: 10/10/20 FINAL DIAGNOSIS: 1. COPD EXACERBATION, OXYGEN DEPENDENT 2. CHRONIC RESPIRATORY FAILURE 3. GERD 4. HYPERTENSION 5. DYSLIPIDEMIA 6. ANXIETY 7. HYPOTHYROIDISM 8. CHRONIC BRONCHITIS 9. ANEMIA 10. CERVICAL RADICULOPATHY 11. LUMBAR RADICULOPATHY 12. 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 BREAST CANCER, LEFT 15. UTERINE CANCER 16. FIBROMYALGIA 17. OSTEOARTHRITIS, RIGHT KNEE 18. HIATAL HERNIA 19. MASTECTOMY, LEFT 20. HYSTERECTOMY 21. ECHOCARDIOGRAM 08/2020, [facility], ENLARGED LEFT ATRIAL AND RIGHT VENTRICLE CAVITIES CALCIFIC AORTIC AND MITRAL VALVES, LVEF 69% LAST VITALS Temp Pulse Resp BP Pulse Ox 97.6 F 66 16 116/70 96 10/10/20 05:34 10/10/20 05:34 10/10/20 05:34 10/10/20 05:34 10/10/20 05:53 DISCHARGE INSTRUCTIONS: 1. DISCHARGE HOME 2. CONTINUE TO USE OXYGEN; INCREASE TO 2.5 LITERS 3. CONTINUE TO USE SYMBICORT INHALER 2 PUFFS TWICE A DAY 4. CONTINUE TO USE ALBUTEROL INHALER 2 PUFFS EVERY 6 HOURS NEEDED FOR SHORTNESS OF AIR/WHEEZING 5. REFERRAL TO PULMONARY REHAB PHASE II AT [facility] (PATIENT TO BE CALLED WITH APPOINTMENT DATE/TIME) 6. AN APPOINTMENT IS SCHEDULED FOR September AT 1:[address] WRAY/SANA POST APRN MEDICATIONS AT DISCHARGE: Albuterol Sulfate (Albuterol Sulfate (Ventolin Hfa) 18 Gm 1 Puff With Spacer) 2 puff IH RTQ6H [facility] Last Admin: 10/10/20 05:05 Dose: 2 puff Documented by: Atenolol (Atenolol 50 Mg Tablet) 50 mg PO DAILY [facility] Last Admin: 10/10/20 08:52 Dose: 50 mg Documented by: Atorvastatin Calcium (Atorvastatin Calcium 10 Mg Tablet) 10 mg PO DAILY [facility] Last Admin: 10/10/20 08:52 Dose: 10 mg Documented by: Budesonide/Formoterol Fumarate (Budesonide/Formoterol Fumarate 160/4.5 Mcg Inhaler) 2 puff IH BID [facility] Last Admin: 10/10/20 08:53 Dose: 2 puff Documented by: Citalopram Hydrobromide (Citalopram Hydrobromide 20 Mg Tablet) 20 mg PO DAILY [facility] Last Admin: 10/10/20 08:52 Dose: 20 mg Documented by: Furosemide (Furosemide 20 Mg Tablet) 20 mg PO QDAC [facility] Last Admin: 10/10/20 05:49 Dose: 20 mg Documented by: Hydroxyzine Pamoate (Hydroxyzine Pamoate 25 Mg Capsule) 25 mg PO TID PRN PRN Reason: Abdominal Pain Last Admin: 10/08/20 18:19 Dose: 25 mg Documented by: Levothyroxine Sodium (Levothyroxine Sodium 75 Mcg Tablet) 75 mcg PO QDAC [facility] Last Admin: 10/10/20 05:49 Dose: 75 mcg Documented by: Lorazepam (Lorazepam 1 Mg Tablet) 1 mg PO BID [facility] Last Admin: 10/10/20 08:52 Dose: 1 mg Documented by: Metoclopramide HCl (Metoclopramide Hcl 10 Mg Tablet) 10 mg PO BEDTIME [facility] Last Admin: 10/09/20 21:30 Dose: 10 mg Documented by: Montelukast Sodium (Montelukast Sodium 10 Mg Tablet) 10 mg PO DAILY [facility] Last Admin: 10/10/20 08:52 Dose: 10 mg Documented by: Multivitamins (Multivitamin 1 Tab) 1 tab PO DAILY [facility] Last Admin: 10/10/20 08:52 Dose: 1 tab Documented by: Nitroglycerin (Nitroglycerin 0.4 Mg Tab.Subl) 0.4 mg SL Q5MIN X 3 DOSES PRN PRN Reason: Chest Pain Non-Formulary Medication (Lactobacillus Acidophilus ) 1 cap PO TID PRN PRN Reason: Abdominal Pain Non-Formulary Medication (Tamoxifen) 20 mg PO BEDTIME [facility] Last Admin: 10/09/20 21:33 Dose: 20 mg Documented by: Omeprazole (Omeprazole 20 Mg Capsule.Dr) 20 mg PO QDAC [facility] Last Admin: 10/10/20 05:48 Dose: 20 mg Documented by: Potassium Chloride (Potassium Chloride 20 Meq Tab) 20 meq PO DAILYWM [facility] Last Admin: 10/10/20 08:52 Dose: 20 meq Documented by: Rivaroxaban (Rivaroxaban 10 Mg Tablet) 20 mg PO BEDTIME [facility] Last Admin: 10/09/20 21:30 Dose: 20 mg Documented by: Ropinirole HCl (Ropinirole Hcl 1 Mg Tablet) 1 mg PO BEDTIME [facility] Last Admin: 10/09/20 21:31 Dose: 1 mg Documented by: PREDNISONE 10 MG BID FOR 5 DAYS (NEW RX) NEW PRESCRIPTIONS: PREDNISONE 10 MG BID FOR 5 DAYS DISCONTINUED MEDICATIONS: NONE DIET INSTRUCTIONS: HEART HEALTHY ENCOURAGED TO EAT SMALL MEALS FREQUENTLY DURING THE DAY AVOID LARGE MEALS LIMIT CAFFEINE STAY UPRIGHT FOR AT LEAST 30 MINUTES AFTER EATING ACTIVITY: RESUME TOLERATED. ENCOURAGED TO WALK SHORT DISTANCES SEVERAL TIMES DAILY SMOKING: NOT APPLICABLE DISEASE SPECIFIC EDUCATION: USE OF OXYGEN; INCREASE TO 2.5 LITERS USE OF ORAL STEROIDS AND RISK OF GI IRRITATION, BONE DEMINERALIZATION HIATAL HERNIA HOSPITAL COURSE: This is a white female who presented to the emergency room with shortness of breath. She does have a long history of COPD with chronic respiratory failure. She most recently has become oxygen dependent after a previous hospitalization last month. Chest x-ray showed no acute process, no pneumonia. She did have changes associated with COPD. She was admitted, placed on Zithromax 500 mg p.o. daily for three days along with Solu-Medrol 100 mg IV q.12hr. ABGs showed a p02 greater than 100. She was turned down on her oxygen from 3 to 2.5L. Repeat ABGs had improved. She is very anxious. I do believe she gets short of breath and then gets anxious which then worsens her shortness of breath. We have discussed using her inhalers as prescribed along with wearing her oxygen at all times. Her medications remained unchanged. She will go home with Prednisone 10 mg b.i.d. for the next 5 days. She completed her three days of Zithromax p.o. She has Albuterol inhaler and Symbicort inhaler at home. We have also given her prescription for nebulizer machine at last hospitalization. She doesn't like the nebulizer machine. I have instructed her however she does need to use it. She has an oxygen concentrator at home. She is to keep this on at all times. Education has been provided about COPD and the nature of her chronic respiratory failure. She will be discharged home in stable condition. Hemoglobin 12.8, hematocrit 37.8. Sodium 136, potassium 3.9, BUN 22, creatinine 0.85. She has been afebrile. Again, ABGs improved on 2.5L with the saturation of 96, pc02 51, p02 down to 85. We will followup with her in the office within the next couple of weeks. TIME SPENT: More than 60 minutes. MTDD
== END 2020-10-10 13:37 | disposition home or self-care (01) | DRG 189 ==
LOC: ED 13:23 → MEDSURG A 16:21
PROVIDERS: ADMIT Internal Medicine; ATTEND Internal Medicine
DX: I10 Essential (primary) hypertension; J44.9 Chronic obstructive pulmonary disease, unspecified; F41.9 Anxiety disorder, unspecified; R05 Cough; K21.9 Gastro-esophageal reflux disease without esophagitis; R11.0 Nausea; E66.9 Obesity, unspecified; J96.10 Chronic respiratory failure, unspecified whether with hypoxia or hypercapnia; M54.16 Radiculopathy, lumbar region; Z20.822 Contact with and (suspected) exposure to COVID-19; E78.5 Hyperlipidemia, unspecified; M54.12 Radiculopathy, cervical region; K44.9 Diaphragmatic hernia without obstruction or gangrene; D64.9 Anemia, unspecified; Z99.81 Dependence on supplemental oxygen; E03.9 Hypothyroidism, unspecified; M19.90 Unspecified osteoarthritis, unspecified site; R06.02 Shortness of breath

== ENCOUNTER 2021-08-26 15:24 | Inpatient (IN) ==
[2021-08-26 16:01] LABS: BASOPHILS % (AUTO) 0.3 % (0.0-3.0); EOSINOPHILS # (AUTO) 0.1 K/ul (0.0-0.7); EOSINOPHILS % (AUTO) 1.1 % (0.0-7.0); HEMATOCRIT 36.6 % (37.0-47.0); HEMOGLOBIN 11.7 g/dl (12.0-16.0); IMMATURE GRANULOCYTE % (AUTO) 0.4 % (0.0-5.0); LYMPHOCYTES # (AUTO) 1.5 K/uL (0.60-3.4); LYMPHOCYTES % (AUTO) 15.7 (10.0-50.0); MEAN CORPUSCULAR HEMOGLOBIN 30.4 pg (27.0-31.0); MEAN CORPUSCULAR VOLUME 95.1 fl (81.0-99.0); MONOCYTES # (AUTO) 0.8 K/uL (0.4-2.0); MONOCYTES % (AUTO) 8.3 (0-10); NEUTROPHILS # (AUTO) 7.2 K/ul (2.0-6.9); NEUTROPHILS % (AUTO) 74.2 % (42.2-75.2); PLATELET COUNT 167 10^3/uL (140-440); RDW COEFFICIENT OF VARIATION 13.2 % (11.6-14.8); RED BLOOD COUNT 3.85 10^6/ul (4.20-5.40); WHITE BLOOD COUNT 9.75 K/ul (4.6-10.2)
--- NOTE | 2021-08-26 16:08 | ED.PDOC ---
General ED Provider: Dr. JAMAAL GUERRIER Chief Complaint: Chest Pain Stated Complaint: Onset for past several days/ Fell on the ice several last week and landed on lt breast-resulting in a bruise. Sore to touch and movement, worse with inhalation Went to see Dr Mejía last week and was prescribed Levaquin and Decadron. Advised to go to ER Today since pain was no better Time Seen by Provider: 08/26/21 15:45 Mode of Arrival: Walk-In Information Source: Patient Exam Limitations: No limitations Primary Care Provider: JACQUIE MEJÍA Nursing and Triage Documentation Reviewed and Agree: Yes Does patient meet sepsis criteria?: No System Inflammatory Response Syndrome: Not Applicable Sepsis Protocol: For patient's 13 years and over: Temp is 96.8 and below OR 101 and greater Pulse >90 BPM Resp >20/minute Acutely Altered Mental Status Are patient's symptoms suggestive of a new infection, such as: -Pneumonia -Skin, Soft Tissue -Endocarditis -UTI -Bone, Joint Infection -Implantable Device -Acute Abdominal Infection -Wound Infection -Meningitis -Blood Stream Catheter Infection -Unknown Cardiovascular Complaint Exam Chest Pain Complaint/Exam Onset: Gradual Duration: `1 week Symptoms Are: Still present Timing: Intermittent Length of Chest Pain Episodes: > 1 hr Initial Severity: Moderate Current Severity: Moderate Location: Reports Discrete, Upper sternal, Left anterior and Left lateral Pain Radiates: Reports Back, Neck and Epigastrium Character: Reports Burning, Heaviness and Pressure Aggravating: Reports Exertion, Movement and Deep breaths Alleviating: Reports None Associated Signs and Symptoms: Denies Diaphoresis, Nausea, Vomiting, Fever, Palpitations, Cough, Hemoptysis, Back pain, Abdominal pain, Dizziness, Short of air, Calf pain or Calf swelling Related History: Reports Similar episode Related Surgical History: Reports None History of Healthcare-Acquired Pneumonia: Reports No AMI/ACS Risk Factors: Reports None TAD Risk Factors: Reports None Pulmonary Embolism Risk Factors: Reports None Prior Care for this Complaint: Yes Recent Stress Test: No Recent Echo/LV Function: No JVD Present: No Subcutaneous Emphysema Present: No Diminshed Breath Sounds: Yes Reproducible Chest Wall Pain: Yes Bilateral Pulses Present: Yes Unequal Pulses Noted: Yes If Risk Factors for AMI/ACS Consider: EKG Differential Diagnoses: Stable Angina, Unstable Angina and Chest Wall Pain Quality Indicators For Acute [place] or Cardiac Chest Pain: EKG in 10min. Quality Indicator For Non-Traumatic Chest Pain/Syncope: EKG Performed Review of Systems Review Of Systems Constitutional: Reports Malaise and Weakness Eyes: Reports No symptoms Ears, Nose, Mouth, Throat: Reports No symptoms Respiratory: Reports Cough, Short of air and Wheezing Cardiac: Reports No symptoms GI: Reports No symptoms : Reports No symptoms Musculoskeletal: Reports No symptoms Skin: Reports No symptoms Neurological: Reports Anxiety Endocrine: Reports No symptoms All Other Systems: Reviewed and Negative [facility] Medical History Anemia Asthma Breast cancer, left Cervical radiculopathy Chronic bronchitis Chronic respiratory failure COPD (chronic obstructive pulmonary disease) Deep venous thrombosis (DVT) of right peroneal vein Degenerative disc disease, cervical Depression Dyslipidemia Fibromyalgia SISI (generalized anxiety disorder) Gastroesophageal reflux disease Hiatal hernia Hypertension Hypothyroid Lumbar radiculopathy Obesity Osteoarthritis Oxygen dependent Uterine cancer Family History FATHER Diabetes BROTHER Cardiovascular disease Social History Smoking and tobacco status: Never smoker Surgical History History of cholecystectomy History of hysterectomy History of left mastectomy History of tubal ligation Female Reproductive History Menstrual Hx Hysterectomy: No Hx Tubal Ligation: Yes Physical Exam Physical Exam Appearance: Reports Well-appearing, No pain distress and Obese Ill-appearing: Not Applicable Pain Distress: Mild Eyes: Reports MARTIN, EOMI and Conjunctiva clear ENT: Reports Ears normal, Nose normal and Oropharynx normal Neck: Supple Respiratory: Reports Airway patent, Breath sounds clear and Breath sounds equal Cardiovascular: Reports RRR, Pulses normal, No rub and No murmur GI/: Reports Soft, Nontender, No masses, Bowel sounds normal and No Organomegaly Musculoskeletal: Reports Normal strength and Other (tender rt mid ant chest wall) Skin: Reports Warm, Dry, Normal color and Other (small bruise rt mid breast) Neurological: Reports Sensation intact, Motor intact, Reflexes intact, Cranial nerves intact, Alert and Oriented Psychiatric: Reports Affect appropriate and Mood appropriate Critical Care Note Critical Care Note Total Critical Care Time (mins): 0 Course Course Hematology/Chemistry: 08/26/21 15:36 08/26/21 15:55 Orders, Labs, Meds: Lab Review 08/26/21 08/26/21 08/26/21 15:36 15:55 15:55 WBC 9.75 RBC 3.85 L Hgb 11.7 L Hct 36.6 L MCV 95.1 MCH 30.4 MCHC 32.0 RDW Coeff of Karina 13.2 Plt Count 167 Immature Gran % (Auto) 0.4 Neut % (Auto) 74.2 Lymph % (Auto) 15.7 Day % (Auto) 8.3 Eos % (Auto) 1.1 Baso % (Auto) 0.3 Neut # (Auto) 7.2 H Lymph # (Auto) 1.5 Day # (Auto) 0.8 Eos # (Auto) 0.1 Baso # (Auto) 0.0 Immature Gran # (Auto) 0.0 PT 10.0 INR 0.96 APTT 20.5 L Sodium 135.1 Potassium 3.88 Chloride 98.0 Carbon Dioxide 30.0 Anion Gap 10.98 BUN 22.5 H Creatinine 1.25 Estimated GFR (MDRD) 41.00 BUN/Creatinine Ratio 18.00 Glucose 93.1 Calcium 8.47 Magnesium 1.94 Total Bilirubin 0.32 AST 21.2 ALT 14.8 Alkaline Phosphatase 88.6 Total Protein 6.71 Albumin 4.02 Globulin 2.69 Albumin/Globulin Ratio 1.49 Orders Category Date Time Status ABG DRAW REQUEST Stat CARDIO 08/26/21 16:10 Ordered EKG-(ED ONLY) Stat CARDIO 08/26/21 15:35 Completed ABG COOX Stat LAB 08/26/21 16:10 Ordered CBC W/ AUTO DIFF Stat LAB 08/26/21 15:36 Completed CMP [COMPREHENSIVE METABOLIC PANEL] Stat LAB 08/26/21 15:55 Completed MAGNESIUM Stat LAB 08/26/21 15:55 Completed PARTIAL THROMBOPLASTIN TIME Stat LAB 08/26/21 15:55 Completed PT WITH INR Stat LAB 08/26/21 15:55 Completed CHEST, 2 VIEWS PA & LAT Stat RADS 08/26/21 15:36 Completed RIBS, BILATERAL MIN 3V Stat RADS 08/26/21 16:08 Completed Vital Signs: Temp Pulse Resp BP Pulse Ox 08/26/21 15:24 97.8 F 72 20 137/72 97 BONNIE Risk Score BONNIE Risk Score: Risk Score Odds of by 30D 0 0.1 (0.1-0.2) 1 0.3 (0.2-0.3) 2 0.4 (0.3-0.5) 3 0.7 (0.6-0.9) 4 1.2 (1.0-1.5) 5 2.2 (1.9-2.6) 6 3.0 (2.5-3.6) 7 4.8 (3.8-6.1) Discharge Plan Discharge Prescriptions: No Action citalopram [Celexa] 10 MG tablet 20 mg PO DAILY 0RF lorazepam 1 MG tablet 1 mg PO BID 0RF atenolol 50 MG tablet 50 mg PO DAILY 0RF metoclopramide HCl [Reglan] 10 MG tablet 10 mg PO BEDTIME 0RF Probiotic 1 EACH capsule 1 cap PO TID PRN (Reason: diarrhea preventative) 0RF atorvastatin [Lipitor] 10 MG tablet 10 mg PO DAILY 0RF montelukast [Singulair] 10 MG tablet 10 mg PO DAILY 0RF Xarelto 20 MG tablet 20 mg PO BEDTIME 0RF multivitamin [Multi-Day] Tablet 1 tab PO DAILY 0RF ropinirole [Requip] 1 mg Tablet 1 mg PO BEDTIME 0RF levothyroxine [Synthroid] 75 mcg Tablet 75 mcg PO QDAC 0RF omeprazole [Prilosec] 10 mg Capsule,Delayed Release(Dr/Ec) 10 mg PO DAILY 0RF hydroxyzine pamoate [Vistaril] 25 mg Capsule 25 mg PO TID PRN (Reason: Anxiety) 0RF tamoxifen 20 mg Tablet 20 mg PO BEDTIME 0RF albuterol sulfate [Proventil HFA] 90 mcg/actuation Hfa Aerosol Inhaler 2 puff INHALATION QID Qty: 18 1RF budesonide-formoterol [Symbicort] 160-4.5 mcg/actuation Hfa Aerosol Inhaler 2 puff INHALATION BID Qty: 18 1RF Rx Instructions: RINSE MOUTH OUT AFTER EACH USE furosemide 20 mg Tablet 20 mg PO QDAC Qty: 30 1RF Rx Instructions: START TOMORROW 09/17/2020 potassium chloride [K-Tab] 20 mEq Tablet Extended Release 20 meq PO DAILY Qty: 30 1RF Rx Instructions: TAKE WHEN YOU ARE TAKING LASIX. START 09/17/2020 ED Provider: JAMAAL GUERRIER Physician Progress Note: []
[2021-08-26 16:14] LABS: ALANINE AMINOTRANSFERASE 14.8 U/L (0-35); ALBUMIN 4.02 g/dL (3.5-5.0); ALKALINE PHOSPHATASE 88.6 U/L (53-141); ASPARTATE AMINO TRANSFERASE 21.2 U/L (14-36); BILIRUBIN,TOTAL 0.32 mg/dL (0.2-1.3); BLOOD UREA NITROGEN 22.5 mg/dL (7-17); CALCIUM 8.47 mg/dL (8.4-10.2); CREATININE 1.25 mg/dL (0.60-1.30); GLUCOSE 93.1 mg/dL (74-106); MAGNESIUM 1.94 mg/dL (1.6-2.3); POTASSIUM 3.88 mmol/L (3.5-5.1); SODIUM 135.1 mmol/L (134.5-145); TOTAL PROTEIN 6.71 g/dL (6.3-8.2)
[2021-08-26 16:19] LABS: PARTIAL THROMBOPLASTIN TIME 20.5 SEC (23.9-40.0)
--- NOTE | 2021-08-26 16:19 | DI ---
EXAM: PA and lateral views of the chest HISTORY: Dyspnea and chest pain COMPARISON: CT chest 12/10/2020 and multiple priors FINDINGS: The cardiomediastinal silhouette is mildly enlarged. There is right diaphragmatic eventra tion. There is interstitial thickening in the lungs bilaterally. There is no discrete consolidation . Osseous structures are unchanged. IMPRESSION: Bilateral interstitial opacities in the lungs consistent with prior CT demonstrating fib rosis.
--- NOTE | 2021-08-26 16:35 | DI ---
EXAM: RIGHT RIBS HISTORY: Fall, right-sided rib pain FINDINGS: Right ribs four view. No rib fracture is identified. No bony destruction, pneumothorax o r soft tissue finding. IMPRESSION: No rib fracture seen.
[2021-08-26 16:44] LABS: ABG O2 HGB 96.9 % (95-100); BEecf 8.2 (-2.0-3.0); COHb 0 (0.5-1.5); HCO3 30.9 (21-28); MetHb 0.4 (0-1.5); sO2 99.5 % (94-98); tHb 11.2 g/dl (11.7-17.4)
[2021-08-26 16:46] LABS: ABG PH 7.53 (7.35-7.45)
--- NOTE | 2021-08-26 17:12 | ED.PDOC ---
General ED Provider: Dr. JAMAAL GUERRIER Chief Complaint: Chest Pain Stated Complaint: Chest tightness Time Seen by Provider: 08/26/21 15:45 Mode of Arrival: Walk-In Information Source: Patient Primary Care Provider: JACQUIE WRAY Nursing and Triage Documentation Reviewed and Agree: Yes Does patient meet sepsis criteria?: No System Inflammatory Response Syndrome: Not Applicable Sepsis Protocol: For patient's 13 years and over: Temp is 96.8 and below OR 101 and greater Pulse >90 BPM Resp >20/minute Acutely Altered Mental Status Are patient's symptoms suggestive of a new infection, such as: -Pneumonia -Skin, Soft Tissue -Endocarditis -UTI -Bone, Joint Infection -Implantable Device -Acute Abdominal Infection -Wound Infection -Meningitis -Blood Stream Catheter Infection -Unknown Review of Systems Review Of Systems Constitutional: Reports Weakness All Other Systems: Reviewed and Negative [facility] Medical History (Updated 08/26/21 @ 16:53 by JAMAAL GUERRIER DO) Anemia Asthma Breast cancer, left Cervical radiculopathy Chronic bronchitis Chronic respiratory failure COPD (chronic obstructive pulmonary disease) Deep venous thrombosis (DVT) of right peroneal vein Degenerative disc disease, cervical Depression Dyslipidemia Fibromyalgia SISI (generalized anxiety disorder) Gastroesophageal reflux disease Hiatal hernia Hypertension Hypothyroid Lumbar radiculopathy Obesity Osteoarthritis Oxygen dependent Uterine cancer Family History FATHER Diabetes BROTHER Cardiovascular disease Social History Smoking and tobacco status: Never smoker Surgical History History of cholecystectomy History of hysterectomy History of left mastectomy History of tubal ligation Female Reproductive History Menstrual Hx Hysterectomy: No Hx Tubal Ligation: Yes Physical Exam Physical Exam Appearance: Reports Well-appearing and No pain distress Ill-appearing: Mild Pain Distress: Mild Eyes: Reports MARTIN, EOMI and Conjunctiva clear ENT: Reports Ears normal, Nose normal and Oropharynx normal Neck: Supple Respiratory: Reports Airway patent, Breath sounds clear and Breath sounds diminished Cardiovascular: Reports RRR, Pulses normal and No murmur GI/: Reports Soft, Nontender, No masses, Bowel sounds normal and No Organomegaly Musculoskeletal: Reports Normal strength, ROM intact and No edema Skin: Reports Warm, Dry and Normal color Neurological: Reports Sensation intact, Motor intact, Reflexes intact, Cranial nerves intact, Alert and Oriented Psychiatric: Reports Affect appropriate and Mood appropriate Interpretation EKG Interpretation Time of EKG #1: 15:25 Rate: Normal Rhythm: Sinus Ectopy: None [place]: Left ST Segment: Normal Interpretation: Inf InFARCT Critical Care Note Critical Care Note Total Critical Care Time (mins): 30 Course Course Hematology/Chemistry: 08/26/21 15:36 08/26/21 15:55 Orders, Labs, Meds: Lab Review 08/26/21 08/26/21 08/26/21 15:36 15:55 15:55 WBC 9.75 RBC 3.85 L Hgb 11.7 L Hct 36.6 L MCV 95.1 MCH 30.4 MCHC 32.0 RDW Coeff of Karina 13.2 Plt Count 167 Immature Gran % (Auto) 0.4 Neut % (Auto) 74.2 Lymph % (Auto) 15.7 [place] % (Auto) 8.3 Eos % (Auto) 1.1 Baso % (Auto) 0.3 Neut # (Auto) 7.2 H Lymph # (Auto) 1.5 [place] # (Auto) 0.8 Eos # (Auto) 0.1 Baso # (Auto) 0.0 Immature Gran # (Auto) 0.0 PT 10.0 INR 0.96 APTT 20.5 L Puncture Site Base Excess O2 Saturation ABG pH ABG pCO2 ABG pO2 ABG HCO3 ABG Total CO2 Pj Test Hemoglobin Oxyhemoglobin Carboxyhemoglobin Total Hemoglobin O2 Delivery Device Oxygen Liter Flow FiO2 % Sodium 135.1 Potassium 3.88 Chloride 98.0 Carbon Dioxide 30.0 Anion Gap 10.98 BUN 22.5 H Creatinine 1.25 Estimated GFR (MDRD) 41.00 BUN/Creatinine Ratio 18.00 Glucose 93.1 Calcium 8.47 Magnesium 1.94 Total Bilirubin 0.32 AST 21.2 ALT 14.8 Alkaline Phosphatase 88.6 Troponin I Total Protein 6.71 Albumin 4.02 Globulin 2.69 Albumin/Globulin Ratio 1.49 08/26/21 08/26/21 15:55 16:40 WBC RBC Hgb Hct MCV MCH MCHC RDW Coeff of Karina Plt Count Immature Gran % (Auto) Neut % (Auto) Lymph % (Auto) [place] % (Auto) Eos % (Auto) Baso % (Auto) Neut # (Auto) Lymph # (Auto) [place] # (Auto) Eos # (Auto) Baso # (Auto) Immature Gran # (Auto) PT INR APTT Puncture Site Rrad Base Excess 8.2 H O2 Saturation 99.5 H ABG pH 7.53 H* ABG pCO2 37.0 ABG pO2 146.0 H ABG HCO3 30.9 H ABG Total CO2 32.0 H Pj Test + Hemoglobin 0.4 Oxyhemoglobin 96.9 Carboxyhemoglobin 0 L Total Hemoglobin 11.2 L O2 Delivery Device Cannula Oxygen Liter Flow 2.00 FiO2 % 28.0 Sodium Potassium Chloride Carbon Dioxide Anion Gap BUN Creatinine Estimated GFR (MDRD) BUN/Creatinine Ratio Glucose Calcium Magnesium Total Bilirubin AST ALT Alkaline Phosphatase Troponin I < 0.012 Total Protein Albumin Globulin Albumin/Globulin Ratio Orders Category Date Time Status ADMIT OBSERVATION [PLACE PATIENT OBSERVATION] .TO ADMISSION 08/26/21 17:17 Ordered MEDSURG (MONITORED BED) ADMIT PATIENT INPATIENT .TO SCU (MONITORED BED) ADMISSION 08/26/21 17:20 Ordered ABG DRAW REQUEST Stat CARDIO 08/26/21 16:10 Completed EKG-(ED ONLY) Stat CARDIO 08/26/21 15:35 Completed EKG-(ED ONLY) Stat CARDIO 08/26/21 17:19 Ordered ACTIVITY .Up in Chair CARE 08/26/21 17:20 Ordered BLOOD GLUCOSE MONITORING (MED/SURG) 0630,1100,1700,2100 CARE 08/26/21 17:21 Ordered INTAKE & OUTPUT Q8HR CARE 08/26/21 17:20 Ordered TELEMETRY MONITORING TELE CARE 08/26/21 17:18 Ordered TELEMETRY MONITORING TELE CARE 08/26/21 17:20 Ordered VITAL SIGNS Q4HR CARE 08/26/21 17:20 Ordered REGULAR DIET DIETARY 08/26/21 Dinner Ordered ED APPLY O2 .ONCE EMERGENCY 08/26/21 17:19 Ordered ED PULVI MIXER OPERATOR APPLIED .ONCE EMERGENCY 08/26/21 17:19 Ordered ED IV/MEDIPORT/POWERPORT .ONCE EMERGENCY 08/26/21 17:19 Ordered ABG COOX Stat LAB 08/26/21 16:40 Completed BLOOD CULTURE Routine LAB 08/26/21 17:21 Ordered CBC W/ AUTO DIFF Stat LAB 08/26/21 15:36 Completed CBC W/ AUTO DIFF Stat LAB 08/26/21 17:19 Ordered CMP [COMPREHENSIVE METABOLIC PANEL] Stat LAB 08/26/21 15:55 Completed COMPREHENSIVE METABOLIC PANEL Stat LAB 08/26/21 17:19 Ordered CREATINE KINASE Stat LAB 08/26/21 17:19 Ordered MAGNESIUM Stat LAB 08/26/21 15:55 Completed PARTIAL THROMBOPLASTIN TIME Stat LAB 08/26/21 15:55 Completed PT WITH INR Stat LAB 08/26/21 15:55 Completed TROPONIN I Stat LAB 08/26/21 15:55 Completed TROPONIN I Stat LAB 08/26/21 17:19 Ordered 0.9 % Sodium Chloride [Saline Flush] MEDS 08/26/21 17:19 Ordered 1 syr IVF PRN PRN RESUSCITATION STATUS Routine OTHERS 08/26/21 17:20 Ordered CHEST, 1V AP ONLY Stat RADS 08/26/21 17:19 Ordered CHEST, 2 VIEWS PA & LAT Stat RADS 08/26/21 15:36 Completed RIBS, BILATERAL MIN 3V Stat RADS 08/26/21 16:08 Completed Medications Generic Name Dose Route Start Last Admin Trade Name Freq PRN Reason Stop Dose Admin Sodium Chloride 1 syr 08/26/21 17:19 0.9% Sodium Chloride 10 Ml Disp.Syrin IVF PRN PRN To flush IV Vital Signs: Temp Pulse Resp BP Pulse Ox 08/26/21 15:24 97.8 F 72 20 137/72 97 BONNIE Risk Score BONNIE Risk Score: Risk Score Odds of by 30D 0 0.1 (0.1-0.2) 1 0.3 (0.2-0.3) 2 0.4 (0.3-0.5) 3 0.7 (0.6-0.9) 4 1.2 (1.0-1.5) 5 2.2 (1.9-2.6) 6 3.0 (2.5-3.6) 7 4.8 (3.8-6.1) Discharge Plan Discharge Discharge Problem: Chest pain in adult, Chest wall contusion, Pulmonary fibrosis, COPD exacerbation Prescriptions: No Action citalopram [Celexa] 10 MG tablet 20 mg PO DAILY 0RF lorazepam 1 MG tablet 1 mg PO BID 0RF atenolol 50 MG tablet 50 mg PO DAILY 0RF metoclopramide HCl [Reglan] 10 MG tablet 10 mg PO BEDTIME 0RF Probiotic 1 EACH capsule 1 cap PO TID PRN (Reason: diarrhea preventative) 0RF atorvastatin [Lipitor] 10 MG tablet 10 mg PO DAILY 0RF montelukast [Singulair] 10 MG tablet 10 mg PO DAILY 0RF Xarelto 20 MG tablet 20 mg PO BEDTIME 0RF multivitamin [Multi-Day] Tablet 1 tab PO DAILY 0RF ropinirole [Requip] 1 mg Tablet 1 mg PO BEDTIME 0RF levothyroxine [Synthroid] 75 mcg Tablet 75 mcg PO QDAC 0RF omeprazole [Prilosec] 10 mg Capsule,Delayed Release(Dr/Ec) 10 mg PO DAILY 0RF hydroxyzine pamoate [Vistaril] 25 mg Capsule 25 mg PO TID PRN (Reason: Anxiety) 0RF tamoxifen 20 mg Tablet 20 mg PO BEDTIME 0RF albuterol sulfate [Proventil HFA] 90 mcg/actuation Hfa Aerosol Inhaler 2 puff INHALATION QID Qty: 18 1RF budesonide-formoterol [Symbicort] 160-4.5 mcg/actuation Hfa Aerosol Inhaler 2 puff INHALATION BID Qty: 18 1RF Rx Instructions: RINSE MOUTH OUT AFTER EACH USE furosemide 20 mg Tablet 20 mg PO QDAC Qty: 30 1RF Rx Instructions: START TOMORROW 09/17/2020 potassium chloride [K-Tab] 20 mEq Tablet Extended Release 20 meq PO DAILY Qty: 30 1RF Rx Instructions: TAKE WHEN YOU ARE TAKING LASIX. START 09/17/2020 ED Provider: JAMAAL GUERRIER Physician Progress Note: []
[2021-08-26] MEDS ORDERED: VISTARIL PO PRN (17:31)
[2021-08-26 17:36] LABS: BORDETELLA PARAPERTUSSIS (PCR) NOT DETECTED (NOT DETECT); BORDETELLA PERTUSSIS (PCR) NOT DETECTED (NOT DETECT); CHLAMYDIA PNEUMONIAE (PCR) NOT DETECTED (NOT DETECT); CORONAVIRUS 229E (PCR) NOT DETECTED (NOT DETECT); CORONAVIRUS HKU1 (PCR) NOT DETECTED (NOT DETECT); CORONAVIRUS NL63 (PCR) NOT DETECTED (NOT DETECT); CORONAVIRUS OC43 (PCR) NOT DETECTED (NOT DETECT); HUMAN METAPNEUMOVIRUS (PCR) NOT DETECTED (NOT DETECT); HUMAN RHINOVIRUS/ENTEROV (PCR) NOT DETECTED (NOT DETECT); INFLUENZA B (PCR) NOT DETECTED (NOT DETECT); MYCOPLASMA PNEUMONIAE (PCR) NOT DETECTED (NOT DETECT); PARAINFLUENZA VIRUS 1 (PCR) NOT DETECTED (NOT DETECT); PARAINFLUENZA VIRUS 2 (PCR) NOT DETECTED (NOT DETECT); PARAINFLUENZA VIRUS 3 (PCR) NOT DETECTED (NOT DETECT); PARAINFLUENZA VIRUS 4 (PCR) NOT DETECTED (NOT DETECT); RESPIRATORY SYNCYTIAL V (PCR) NOT DETECTED (NOT DETECT); SARS_COV_2 (PCR) NOT DETECTED (NOT DETECT)
[2021-08-26 18:24] LABS: ADENOVIRUS (PCR) NOT DETECTED (NOT DETECT)
[2021-08-26] MEDS: REQUIP PO SCH (20:57)
[2021-08-26] MEDS: ATIVAN PO SCH (20:57)
[2021-08-26] MEDS: REGLAN PO SCH (20:57)
[2021-08-26] MEDS: XARELTO PO SCH (20:58)
[2021-08-26] MEDS: SYMBICORT 160-4.5 MCG INHALER IH SCH (20:58)
[2021-08-26] MEDS ORDERED: VENTOLIN HFA (PER PUFF-WITH SPACER) IH SCH (21:00)
[2021-08-26 21:51] VITALS: BMI 31.4
[2021-08-27] MEDS: VENTOLIN HFA (PER PUFF-WITH SPACER) IH SCH ×4 (04:48→20:35)
[2021-08-27 05:17] LABS: BASOPHILS # (AUTO) 0.1 K/uL (0-0.2); BASOPHILS % (AUTO) 0.6 % (0.0-3.0); EOSINOPHILS # (AUTO) 0.5 K/ul (0.0-0.7); EOSINOPHILS % (AUTO) 4.6 % (0.0-7.0); HEMATOCRIT 36.4 % (37.0-47.0); HEMOGLOBIN 11.6 g/dl (12.0-16.0); IMMATURE GRANULOCYTE # (AUTO) 0.1 (0.0-1.0); IMMATURE GRANULOCYTE % (AUTO) 0.6 % (0.0-5.0); LYMPHOCYTES % (AUTO) 30.4 (10.0-50.0); MEAN CORPUSCULAR HEMOGLOBIN 30.4 pg (27.0-31.0); MEAN CORPUSCULAR HGB CONC 31.9 (31.8-35.4); MEAN CORPUSCULAR VOLUME 95.5 fl (81.0-99.0); MONOCYTES # (AUTO) 0.7 K/uL (0.4-2.0); MONOCYTES % (AUTO) 7.4 (0-10); NEUTROPHILS # (AUTO) 5.5 K/ul (2.0-6.9); NEUTROPHILS % (AUTO) 56.4 % (42.2-75.2); PLATELET COUNT 160 10^3/uL (140-440); RDW COEFFICIENT OF VARIATION 13.2 % (11.6-14.8); RED BLOOD COUNT 3.81 10^6/ul (4.20-5.40); WHITE BLOOD COUNT 9.69 K/ul (4.6-10.2)
[2021-08-27 05:30] LABS: ALANINE AMINOTRANSFERASE 13.4 U/L (0-35); ALBUMIN 3.87 g/dL (3.5-5.0); ALKALINE PHOSPHATASE 87.1 U/L (53-141); ASPARTATE AMINO TRANSFERASE 19.9 U/L (14-36); BILIRUBIN,TOTAL 0.54 mg/dL (0.2-1.3); BLOOD UREA NITROGEN 26.3 mg/dL (7-17); CALCIUM 8.73 mg/dL (8.4-10.2); CARBON DIOXIDE 33.1 mmol/L (22-30.0); CHLORIDE 101.6 mmol/L (98-107); CREATININE 1.13 mg/dL (0.60-1.30); GLUCOSE 79.6 mg/dL (74-106); POTASSIUM 3.83 mmol/L (3.5-5.1); SODIUM 139.2 mmol/L (134.5-145); TOTAL PROTEIN 6.5 g/dL (6.3-8.2)
[2021-08-27] MEDS: SYNTHROID PO SCH (05:47)
[2021-08-27] MEDS ORDERED: LASIX TAB PO SCH (06:30)
[2021-08-27 07:00] LABS: TROPONIN I < 0.012 ng/ml (0.0000-0.120)
[2021-08-27 07:32] LABS: BILIRUBIN,URINE Negative (NEGATIVE); CLARITY,URINE Clear (CLEAR); COLOR,URINE Yellow (YELLOW); GLUCOSE, URINE (UA) Negative (NEGATIVE); KETONES,URINE Negative (NEGATIVE); LEUKOCYTE ESTERASE ,URINE Negative (NEGATIVE); NITRITE,URINE Negative (NEGATIVE); PH,URINE 5.5 (5-9); PROTEIN,URINE Negative (NEGATIVE); URINE, BLOOD Negative (NEGATIVE); UROBILINOGEN,URINE 0.2 (0.2)
[2021-08-27] MEDS: TENORMIN PO SCH (08:28)
[2021-08-27] MEDS: K-DUR PO SCH (08:28)
[2021-08-27] MEDS: SINGULAIR PO SCH (08:28)
[2021-08-27] MEDS: PRILOSEC PO SCH (08:28)
[2021-08-27] MEDS: MULTIVITAMIN TABLET PO SCH (08:28)
[2021-08-27] MEDS: LIPITOR PO SCH (08:29)
[2021-08-27] MEDS: SYMBICORT 160-4.5 MCG INHALER IH SCH ×2 (08:29→20:44)
[2021-08-27] MEDS: CELEXA PO SCH (08:30)
[2021-08-27] MEDS: ATIVAN PO SCH ×2 (08:30→20:44)
[2021-08-27] MEDS ORDERED: OMEPRAZOLE 10 MG PO SCH (09:00)
[2021-08-27] MEDS: TAMOXIFEN 20 MG PO SCH ×2 (10:23→20:46)
--- NOTE | 2021-08-27 13:28 | ECHO2D ---
Date of Exam: 08/27/2021 Ordering Physician: DR. JACQUIE WRAY Room #: 110 Reason for Echo: CHEST PAIN, SOB, RESPIRATORY FAILURE M-Mode Normal Adult Results LV Dimensions Normal Adult Results AoV Opening excursions >1.6 >1.6 LVEDD-base- 3.5-5.8 4.9 Ao root dimensions 2.0-3.7 2.9 LVESD-base- 3.1-4.6 L. Atrium dimensions 1.9-3.8 4.2 Post. Wall thickness 0.8-1.1 1.2 IV septum (thickness) 0.7-1.2 1.3 Post. Wall excursion 0.72-1.3 NORMAL Septal motion NORMAL Systolic motion R. Ventricular cavity 1.5-2.0 3.0 LVEF 60% 64% Paradoxical septal wall motion NORMAL 2-D : 2-D M Mode Echocardiogram was performed using apical four chamber and left parasternal long and short axis views. Mitral, tricuspid and aortic valves appear to be normal. Contractility of the left ventricle seems to be normal, so is the cavity size. ENLARGED LEFT ATRIAL CAVITY AND RIGHT VENTRICLE CAVITY. Aortic root appears to be normal. There is no pericardial effusion. There is no thrombus noted in the left ventricle or left atrial cavity. M-MODE: MV: NORMAL AV: CALCIFIC LEAFLETS/ NO STENOSIS TV: NORMAL PV: NORMAL CHAMBER SIZE: ENLARGED LEFT ATRIA AND RIGHT VENTRICLE CAVITIES WALL MOTION: NORMAL PERICARDIUM: NORMAL INTERPRETATION: 1. LEFT VENTRICLE HYPERTROPHY WITH ENLARGED LEFT ATRIAL CAVITY 2. ENLARGED RIGHT VENTRICLE CAVITY 3. CALCIFIC AORTIC LEAFLETS 4. NORMAL LEFT VENTRICLE CONTRACTILITY [facility]
[2021-08-27] MEDS ORDERED: NITROSTAT SL PRN (13:57)
[2021-08-27] MEDS ORDERED: ATROPINE SULFATE PFS IVP PRN (13:57)
[2021-08-27] MEDS: TYLENOL PO PRN (19:04)
[2021-08-27] MEDS ORDERED: TORADOL IVP STA (19:36)
[2021-08-27] MEDS ORDERED: DECADRON IM STA (19:36)
[2021-08-27] MEDS: REGLAN PO SCH (20:44)
[2021-08-27] MEDS: REQUIP PO SCH (20:44)
[2021-08-27] MEDS: XARELTO PO SCH (20:45)
[2021-08-28] MEDS: VENTOLIN HFA (PER PUFF-WITH SPACER) IH SCH ×4 (05:00→20:10)
[2021-08-28 05:22] LABS: BASOPHILS % (AUTO) 0.2 % (0.0-3.0); HEMATOCRIT 37.1 % (37.0-47.0); HEMOGLOBIN 11.9 g/dl (12.0-16.0); IMMATURE GRANULOCYTE # (AUTO) 0.1 (0.0-1.0); IMMATURE GRANULOCYTE % (AUTO) 0.5 % (0.0-5.0); LYMPHOCYTES # (AUTO) 0.7 K/uL (0.60-3.4); LYMPHOCYTES % (AUTO) 7.2 (10.0-50.0); MEAN CORPUSCULAR HEMOGLOBIN 30.3 pg (27.0-31.0); MEAN CORPUSCULAR HGB CONC 32.1 (31.8-35.4); MEAN CORPUSCULAR VOLUME 94.4 fl (81.0-99.0); MONOCYTES # (AUTO) 0.3 K/uL (0.4-2.0); MONOCYTES % (AUTO) 3.4 (0-10); NEUTROPHILS # (AUTO) 8.1 K/ul (2.0-6.9); NEUTROPHILS % (AUTO) 88.7 % (42.2-75.2); PLATELET COUNT 161 10^3/uL (140-440); RDW COEFFICIENT OF VARIATION 13.1 % (11.6-14.8); RED BLOOD COUNT 3.93 10^6/ul (4.20-5.40); WHITE BLOOD COUNT 9.14 K/ul (4.6-10.2)
[2021-08-28 05:39] LABS: ALBUMIN 4.16 g/dL (3.5-5.0); ALKALINE PHOSPHATASE 99.7 U/L (53-141); ASPARTATE AMINO TRANSFERASE 24.8 U/L (14-36); BILIRUBIN,TOTAL 0.45 mg/dL (0.2-1.3); CALCIUM 9.23 mg/dL (8.4-10.2); CARBON DIOXIDE 31.5 mmol/L (22-30.0); CHLORIDE 100.5 mmol/L (98-107); CREATININE 1.07 mg/dL (0.60-1.30); GLUCOSE 147.7 mg/dL (74-106); POTASSIUM 4.54 mmol/L (3.5-5.1); SODIUM 137.3 mmol/L (134.5-145)
[2021-08-28] MEDS: SYNTHROID PO SCH (05:49)
[2021-08-28] MEDS: PRILOSEC PO SCH (05:49)
[2021-08-28] MEDS: LASIX TAB PO SCH (05:49)
--- NOTE | 2021-08-28 08:49 | PCM.PROG ---
Attending Provider: ATTENDING PROVIDER: Dr. JACQUIE WRAY This patient is seen with Lia Da Silva, Nurse Practitioner. DATE OF SERVICE: 08/28/21 SUBJECTIVE: This 80 year old /WHITE F was hospitalized 08/26/21. The patient states that upper chest pain has improved somewhat. I do believe this chest wall pain is from previous fall. Denies hitting head. Refused Xaralto states that Dr. Wray took her off some time ago. We will have to confirm this. REVIEW OF SYSTEMS: CONSTITUTIONAL: No night sweats. No fatigue, malaise, lethargy. No fever or chills.Weakness. HEENT: Eyes: No visual changes. No eye pain. No eye discharge. ENT: No runny nose. No epistaxis. No sinus pain. No odynophagia. No congestion. RESPIRATORY: No cough, no congestion. No hemoptysis. No shortness of breath. CARDIOVASCULAR: No angina symptoms. No CHF symptoms. No atypical chest pain for CAD. No palpitations. No orthopnea.. GASTROINTESTINAL: No abdominal pain. No nausea or vomiting. No diarrhea or constipation. No hematemesis. No hematochezia. GENITOURINARY: No urgency. No frequency. No dysuria. No hematuria. No obstructive symptoms. No discharge. No pain. No significant abnormal bleeding. MUSCULOSKELETAL: No musculoskeletal pain; no joint swelling. Chest wall pain. NEUROLOGICAL: Awake, alert, oriented to time, place and person. No headache. No neck pain. No syncope. No seizures. No dizziness. PSYCHIATRIC: Not anxious. No depression. No suicidal thoughts. No homicidal thoughts. SKIN: No rash. No lesions. No wounds. ENDOCRINE: No unexplained weight loss. No weight gain. HEMATOLOGIC/LYMPHATIC: No anemia. No purpura. No petechiae. No prolonged or excessive bleeding. No palpable lymph nodes. PHYSICAL EXAMINATION: GENERAL: The patient is awake, alert and oriented, sitting in bed in no distress. VITAL SIGNS: Temperature 97.6 F, Pulse 71, Respiratory Rate 18, BP 128/79, Pulse Ox 98% HEENT: Head normocephalic, atraumatic. Eyes: Extraocular muscles are intact. Pupils are equal, round and reactive to light and accommodation. Ears: No lesions. Nose appeared normal. Throat: No exudate or erythema. NECK: Supple. No JVD, no carotid bruit. No lymphadenopathy or thyromegaly. LUNGS: Diminished breath sounds. Clear to auscultation. Percussion note normal. Chest symmetrical. HEART: S1, S2, no S3. No murmurs. No cyanosis or clubbing. No ascites. Pulses: Dorsalis pedis and posterior tibial pulses +1 to +2 both sides. ABDOMEN: Soft. Non-tender. Bowel sounds active. No CVA tenderness. No mass felt. EXTREMITIES: No edema. Full range of motion of all extremities, equal. NEUROLOGIC: No focal deficit. Cranial nerves II through XII are grossly intact. No headache. No double vision. SKIN: Not dry. Intact. Turgor-normal. LYMPHATIC: No palpable lymph nodes/no lymphedema. MUSCULOSKELETAL: Normal joints with no swelling. Muscle tone is normal. LAB REVIEW: 08/28/21 05:09 08/28/21 05:09 08/28/21 05:09: Sodium 137.3, Potassium 4.54, Chloride 100.5, Carbon Dioxide 31.5 H, Anion Gap 9.84, BUN 25.0 H, Creatinine 1.07, Estimated GFR (MDRD) 49.00, BUN/Creatinine Ratio 23.36, Glucose 147.7 H, Calcium 9.23, Total Bilirubin 0.45, AST 24.8, ALT 16.0, Alkaline Phosphatase 99.7, Total Protein 7.00, Albumin 4.16, Globulin 2.84, Albumin/Globulin Ratio 1.46 08/28/21 05:09: WBC 9.14, RBC 3.93 L, Hgb 11.9 L, Hct 37.1, MCV 94.4, MCH 30.3, MCHC 32.1, RDW Coeff of Karina 13.1, Plt Count 161, Immature Gran % (Auto) 0.5, Neut % (Auto) 88.7 H, Lymph % (Auto) 7.2 L, [place] % (Auto) 3.4, Eos % (Auto) 0.0, Baso % (Auto) 0.2, Neut # (Auto) 8.1 H, Lymph # (Auto) 0.7, [place] # (Auto) 0.3 L, Eos # (Auto) 0.0, Baso # (Auto) 0.0, Immature Gran # (Auto) 0.1 ASSESSMENT: Please see below. 1. Acute Costochondritis 2. Generalized weakness 3. Status post fall PLAN: 1. Toradol 15mg IV Q 12 Plan and coordination of the patient's care discussed in the presence of Ecommerce Analyst and nurse. SCRIBED BY: YOUSIF DEAN Production Illustrator scribed while in presence of service performed by Dr. Wray/Lia Da Silva APRN on 08/28/21 (0800)
[2021-08-28] MEDS ORDERED: TORADOL IVP ONE (09:00)
[2021-08-28] MEDS ORDERED: DECADRON IM ONE (09:00)
[2021-08-28] MEDS: MULTIVITAMIN TABLET PO SCH (09:24)
[2021-08-28] MEDS: SINGULAIR PO SCH (09:24)
[2021-08-28] MEDS: LIPITOR PO SCH (09:24)
[2021-08-28] MEDS: ATIVAN PO SCH ×2 (09:24→20:46)
[2021-08-28] MEDS: K-DUR PO SCH (09:24)
[2021-08-28] MEDS: TENORMIN PO SCH (09:24)
[2021-08-28] MEDS: CELEXA PO SCH (09:24)
[2021-08-28] MEDS: SYMBICORT 160-4.5 MCG INHALER IH SCH ×2 (09:25→20:46)
[2021-08-28] MEDS: TORADOL IVP PRN ×2 (10:01→22:10)
[2021-08-28] MEDS: TYLENOL PO PRN (17:44)
[2021-08-28] MEDS: REGLAN PO SCH (20:46)
[2021-08-28] MEDS: REQUIP PO SCH (20:46)
[2021-08-28] MEDS ORDERED: TAMOXIFEN CITRATE PO SCH (21:00)
[2021-08-29 02:30] VITALS: TEMP 97.6
[2021-08-29] MEDS: VENTOLIN HFA (PER PUFF-WITH SPACER) IH SCH (04:45)
[2021-08-29 05:30] LABS: BASOPHILS % (AUTO) 0.1 % (0.0-3.0); EOSINOPHILS # (AUTO) 0.1 K/ul (0.0-0.7); HEMATOCRIT 32.3 % (37.0-47.0); HEMOGLOBIN 10.5 g/dl (12.0-16.0); IMMATURE GRANULOCYTE # (AUTO) 0.1 (0.0-1.0); IMMATURE GRANULOCYTE % (AUTO) 0.4 % (0.0-5.0); LYMPHOCYTES # (AUTO) 1.9 K/uL (0.60-3.4); LYMPHOCYTES % (AUTO) 14.2 (10.0-50.0); MEAN CORPUSCULAR HEMOGLOBIN 30.3 pg (27.0-31.0); MEAN CORPUSCULAR HGB CONC 32.5 (31.8-35.4); MEAN CORPUSCULAR VOLUME 93.4 fl (81.0-99.0); MONOCYTES # (AUTO) 0.7 K/uL (0.4-2.0); MONOCYTES % (AUTO) 5.5 (0-10); NEUTROPHILS # (AUTO) 10.5 K/ul (2.0-6.9); NEUTROPHILS % (AUTO) 78.8 % (42.2-75.2); PLATELET COUNT 146 10^3/uL (140-440); RDW COEFFICIENT OF VARIATION 13.1 % (11.6-14.8); RED BLOOD COUNT 3.46 10^6/ul (4.20-5.40); WHITE BLOOD COUNT 13.35 K/ul (4.6-10.2)
[2021-08-29 05:46] LABS: ALANINE AMINOTRANSFERASE 14.6 U/L (0-35); ALBUMIN 3.61 g/dL (3.5-5.0); ALKALINE PHOSPHATASE 84.5 U/L (53-141); ASPARTATE AMINO TRANSFERASE 20.2 U/L (14-36); BILIRUBIN,TOTAL 0.47 mg/dL (0.2-1.3); BLOOD UREA NITROGEN 26.7 mg/dL (7-17); CALCIUM 8.87 mg/dL (8.4-10.2); CARBON DIOXIDE 33.2 mmol/L (22-30.0); CHLORIDE 100.5 mmol/L (98-107); CREATININE 1.02 mg/dL (0.60-1.30); GLUCOSE 100.3 mg/dL (74-106); POTASSIUM 3.75 mmol/L (3.5-5.1); TOTAL PROTEIN 6.14 g/dL (6.3-8.2)
[2021-08-29 05:51] VITALS: BP 123/73
[2021-08-29] MEDS: PRILOSEC PO SCH (05:55)
[2021-08-29] MEDS: LASIX TAB PO SCH (05:56)
[2021-08-29] MEDS: SYNTHROID PO SCH (05:56)
[2021-08-29] MEDS: SINGULAIR PO SCH (09:06)
[2021-08-29] MEDS: TYLENOL PO PRN (09:06)
[2021-08-29] MEDS: TENORMIN PO SCH (09:07)
[2021-08-29] MEDS: CELEXA PO SCH (09:07)
[2021-08-29] MEDS: ATIVAN PO SCH (09:07)
[2021-08-29] MEDS: MULTIVITAMIN TABLET PO SCH (09:07)
[2021-08-29] MEDS: LIPITOR PO SCH (09:07)
[2021-08-29] MEDS: K-DUR PO SCH (09:07)
[2021-08-29] MEDS: SYMBICORT 160-4.5 MCG INHALER IH SCH (09:08)
--- NOTE | 2021-08-29 09:45 | PCM.PROG ---
Attending Provider: ATTENDING PROVIDER: Dr. JACQUIE WRAY DATE OF SERVICE: 08/29/21 SUBJECTIVE: This 80 year old /WHITE F was hospitalized 08/26/21 with chest pain, had fallen week prior to hospitalization on the ice. She fell on her chest. The patient has soreness ever since then. The patient's cardiac markers all negative. Echo showed normal LV contractility. No pain anymore. She wants to go home. REVIEW OF SYSTEMS: CONSTITUTIONAL: No night sweats. No fatigue, malaise, lethargy. No fever or chills. HEENT: Eyes: No visual changes. No eye pain. No eye discharge. ENT: No runny nose. No epistaxis. No sinus pain. No odynophagia. No congestion. RESPIRATORY: No cough, no congestion. No hemoptysis. No shortness of breath. CARDIOVASCULAR: No angina symptoms. No CHF symptoms. No atypical chest pain for CAD. No palpitations. No orthopnea.. GASTROINTESTINAL: No abdominal pain. No nausea or vomiting. No diarrhea or constipation. No hematemesis. No hematochezia. GENITOURINARY: No urgency. No frequency. No dysuria. No hematuria. No obstructive symptoms. No discharge. No pain. No significant abnormal bleeding. MUSCULOSKELETAL: No musculoskeletal pain; no joint swelling. NEUROLOGICAL: Awake, alert, oriented to time, place and person. No headache. No neck pain. No syncope. No seizures. No dizziness. PSYCHIATRIC: Not anxious. No depression. No suicidal thoughts. No homicidal thoughts. SKIN: No rash. No lesions. No wounds. ENDOCRINE: No unexplained weight loss. No weight gain. HEMATOLOGIC/LYMPHATIC: No anemia. No purpura. No petechiae. No prolonged or excessive bleeding. No palpable lymph nodes. PHYSICAL EXAMINATION: GENERAL: The patient is awake, alert and oriented, sitting in bed in no distress. VITAL SIGNS: Temperature 97.6 F, Pulse 67, Respiratory Rate 16, BP 123/73, Pulse Ox 100% HEENT: Head normocephalic, atraumatic. Eyes: Extraocular muscles are intact. Pupils are equal, round and reactive to light and accommodation. Ears: No lesions. Nose appeared normal. Throat: No exudate or erythema. NECK: Supple. No JVD, no carotid bruit. No lymphadenopathy or thyromegaly. LUNGS: Clear to auscultation. Percussion note normal. Chest symmetrical. HEART: S1, S2, no S3. No murmurs. No cyanosis or clubbing. No ascites. Pulses: Dorsalis pedis and posterior tibial pulses +1 to +2 both sides. ABDOMEN: Soft. Non-tender. Bowel sounds active. No CVA tenderness. No mass felt. EXTREMITIES: No edema. Full range of motion of all extremities, equal. NEUROLOGIC: No focal deficit. Cranial nerves II through XII are grossly intact. No headache, no double vision or headache. SKIN: Warm and dry. Intact. Turgor-normal. LYMPHATIC: No palpable lymph nodes/no lymphedema. MUSCULOSKELETAL: Normal joints with no swelling. Muscle tone is normal. LAB REVIEW: 08/29/21 05:03 08/29/21 05:03 08/29/21 05:03: Sodium 135.0, Potassium 3.75, Chloride 100.5, Carbon Dioxide 33.2 H, Anion Gap 5.05, BUN 26.7 H, Creatinine 1.02, Estimated GFR (MDRD) 52.00, BUN/Creatinine Ratio 26.17, Glucose 100.3, Calcium 8.87, Total Bilirubin 0.47, AST 20.2, ALT 14.6, Alkaline Phosphatase 84.5, Total Protein 6.14 L, Albumin 3.61, Globulin 2.53, Albumin/Globulin Ratio 1.42 08/29/21 05:03: WBC 13.35 H, RBC 3.46 L, Hgb 10.5 L, Hct 32.3 L, MCV 93.4, MCH 30.3, MCHC 32.5, RDW Coeff of Karina 13.1, Plt Count 146, Immature Gran % (Auto) 0.4, Neut % (Auto) 78.8 H, Lymph % (Auto) 14.2, [place] % (Auto) 5.5, Eos % (Auto) 1.0, Baso % (Auto) 0.1, Neut # (Auto) 10.5 H, Lymph # (Auto) 1.9, [place] # (Auto) 0.7, Eos # (Auto) 0.1, Baso # (Auto) 0.0, Immature Gran # (Auto) 0.1 ASSESSMENT: Please see below. 1. Chest pain likely chest wall pain responding to steroids and Toradol PLAN: 1. Pulmonary status, stable 2. Tylenol helps with pain. Plan and coordination of the patient's care discussed in the presence of [employer] and nurse. CONDITION: Stable SCRIBED BY: Dimas GR scribed while in presence of service performed by Dr. JACQUIE WRAY on 08/29/21 ([id number])
--- NOTE | 2021-09-01 13:40 | PN ---
DATE OF SERVICE: 08/26/21 SUBJECTIVE: The patient was hospitalized through the emergency room with complaint of having chest pain. The patient's chest pain mostly seems like chest wall pain with tightness. The patient had fallen on a ice nearly a week ago. Her chest pain was more with breathing deep. She has to do more activity of daily living because the 's failing health. The patient is on home oxygen. REVIEW OF SYSTEMS: CONSTITUTIONAL: No night sweats. No fatigue, malaise, lethargy. No fever or chills. HEENT: Eyes: No visual changes. No eye pain. No eye discharge. ENT: No runny nose. No epistaxis. No sinus pain. No sore throat. No odynophagia. No congestion. RESPIRATORY: No cough, no congestion. No hemoptysis. Shortness of breath on exertion. CARDIOVASCULAR: No angina symptoms. No CHF symptoms. No atypical chest pain for CAD. No palpitations. No PND. No orthopnea. Chest tightness. Pain mostly on movement and deep breathing. Radiation of pain to any other part of the body usually comes and goes mostly at rest. No sweating, no nausea and no vomiting. GASTROINTESTINAL: No abdominal pain. No nausea or vomiting. No diarrhea or constipation. No hematemesis. No hematochezia. GENITOURINARY: No urgency. No frequency. No dysuria. No hematuria. No obstructive symptoms. No discharge. No pain. No significant abnormal bleeding. MUSCULOSKELETAL: No musculoskeletal pain; no joint swelling. NEUROLOGICAL: No headache. No neck pain. No syncope. No seizures. No dizziness. She is able to move without much problem. PSYCHIATRIC: Not anxious. No depression. No suicidal thoughts. No homicidal thoughts. SKIN: No rash. No lesions. No wounds. ENDOCRINE: No unexplained weight loss. No weight gain. HEMATOLOGIC/LYMPHATIC: No anemia. No purpura. No petechiae. No prolonged or excessive bleeding. No palpable lymph nodes. PHYSICAL EXAMINATION: GENERAL: The patient is oriented to time, place and person. HEENT: Head normocephalic, atraumatic. Eyes: Extraocular muscles are intact. Pupils are equal, round and reactive to light and accommodation. Ears: No lesions. Nose appeared normal. Throat: No exudate or erythema. NECK: Supple. No JVD, no carotid bruit. No lymphadenopathy or thyromegaly. LUNGS: Decreased breath sounds bilateral with mild expiratory wheeze. Percussion note normal. Chest symmetrical. HEART: S1, S2, no S3. No murmurs. No cyanosis or clubbing. No ascites. Pulses: Dorsalis pedis and posterior tibial pulses +1 to +2 bilaterally. ABDOMEN: Soft. Nontender. Bowel sounds active. No CVA tenderness. No mass felt. EXTREMITIES: Trace edema, 1+ bilaterally. Full range of motion of all extremities, equal. NEUROLOGIC: No focal deficit. Cranial nerves II through XII are grossly intact. No headache. No double vision. SKIN: Not dry. Intact. Turgor - normal. LYMPHATIC: No palpable lymph nodes/no lymphedema. MUSCULOSKELETAL: Normal joints with no swelling. Muscle tone is normal. ASSESSMENT: 1. Chest pain, seems to be noncardiac 2. Chronic respiratory failure 3. Dyslipidemia 4. Hypertension PLAN: 1. Routine telemetry orders which will include serial cardiac markers, serial EKGs, telemetry 2. Continue the rest of the medications 3. Echo to be done in the morning. TIME SPENT: More than 30 minutes. Plan and coordination of the patient's care discussed in the presence of nurse. DHAVAL
--- NOTE | 2021-09-01 14:31 | PN ---
DATE OF SERVICE: 08/27/21 SUBJECTIVE: 80 year old white female hospitalized with chest pain. The patient's chest pain is fairly atypical, nonexertional. REVIEW OF SYSTEMS: CONSTITUTIONAL: No night sweats. No fatigue, malaise, lethargy. No fever or chills. HEENT: Eyes: No visual changes. No eye pain. No eye discharge. ENT: No runny nose. No epistaxis. No sinus pain. No sore throat. No odynophagia. No congestion. RESPIRATORY: No cough, no congestion. No hemoptysis. No shortness of breath. CARDIOVASCULAR: No angina symptoms. No CHF symptoms. No atypical chest pain for CAD. No palpitations. No PND. No orthopnea. The patient's chest pain is sharp unrelated to exertion. Chest wall type of pain with chest wall tenderness. GASTROINTESTINAL: No abdominal pain. No nausea or vomiting. No diarrhea or constipation. No hematemesis. No hematochezia. GENITOURINARY: No urgency. No frequency. No dysuria. No hematuria. No obstructive symptoms. No discharge. No pain. No significant abnormal bleeding. MUSCULOSKELETAL: No musculoskeletal pain; no joint swelling. NEUROLOGICAL: No headache. No neck pain. No syncope. No seizures. No dizziness. PSYCHIATRIC: Not anxious. No depression. No suicidal thoughts. No homicidal thoughts. SKIN: No rash. No lesions. No wounds. ENDOCRINE: No unexplained weight loss. No weight gain. HEMATOLOGIC/LYMPHATIC: No anemia. No purpura. No petechiae. No prolonged or excessive bleeding. No palpable lymph nodes. PHYSICAL EXAMINATION: VITAL SIGNS: Temperature 98.2, pulse 87, respiratory rate 16, blood pressure 126/65 and pulse ox 100% on 2 liters. HEENT: Head normocephalic, atraumatic. Eyes: Extraocular muscles are intact. Pupils are equal, round and reactive to light and accommodation. Ears: No lesions. Nose appeared normal. Throat: No exudate or erythema. NECK: Supple. No JVD, no carotid bruit. No lymphadenopathy or thyromegaly. LUNGS: Decreased breath sounds but clear to auscultation. Percussion note normal. Chest symmetrical. HEART: S1, S2, no S3. No murmurs. No cyanosis or clubbing. No ascites. Pulses: Dorsalis pedis and posterior tibial pulses +1 to +2 bilaterally. ABDOMEN: Soft. Nontender. Bowel sounds active. No CVA tenderness. No mass felt. EXTREMITIES: No edema. Full range of motion of all extremities, equal. NEUROLOGIC: No focal deficit. Cranial nerves II through XII are grossly intact. No headache. No double vision. SKIN: Not dry. Intact. Turgor - normal. LYMPHATIC: No palpable lymph nodes/no lymphedema. MUSCULOSKELETAL: Normal joints with no swelling. Muscle tone is normal. LABS: Hgb 11.6, hct 36, WBC 9,600 normal differential, creatinine 1.1, BUN 26, potassium 3.8 ASSESSMENT: 1. Chest pain noncardiac 2. Chronic respiratory failure on home oxygen 3. Bronchial asthma 4. Dyslipidemia 5. Atrial fibrillation 6. Hypothyroidism 7. C of the breast 8. Hypertension 9. Depression PLAN: 1. Continue to monitor the patient 2. Telemetry 3. The patient had an echo done which showed LVH with normal LV contractility, enlarged RV cavity and left atrial cavity. Calcification of aortic valves with no stenosis. 4. The patient was reassured likely discharge tomorrow if everything stays stable 5. 1cc Decadron today and tomorrow morning 6. Chest wall soreness 15mg Toradol IV TIME SPENT: More than 30 minutes. Plan and coordination of the patient's care discussed in the presence of nurse. DHAVAL
--- NOTE | 2021-09-01 14:58 | DS ---
DATE OF SERVICE: 08/29/21 FINAL DIAGNOSIS: 1. Chest pain likely chest wall pain secondary to fall 2. Chronic respiratory failure 3. Bronchial asthma with chronic bronchitis 4. Esophageal reflux disease 5. Esophageal spasm and dysmotility 6. Dyslipidemia 7. Hypothyroidism 8. Obesity with BMI of 31. 9. C of the breast DISCHARGE INSTRUCTIONS: Discharge home. MEDICATIONS AT DISCHARGE: Atenolol Citalopram Lorazepam Metoprolol Atorvastatin Singulair Hydroxyzine Levothyroxine Ropinirole Tamoxifen Proventil HFA Symbicort Lasix Potassium DIET INSTRUCTIONS: As tolerated ACTIVITY: As tolerated LABS: Hgb 11.6, hct 36, WBC 9,600 normal differential, creatinine 1.1, BUN 26, potassium 3.8. ABG on admission pO2 146, pCo2 37, pH 7.53 with 99% saturation on 2 liters. COVID negative. HOSPITAL COURSE: 80 year old white female hospitalized with chest pain. The patient's chest pain was mostly noncardiac, chest wall pain. She had fallen a week prior to hospitalization. She was Toradol IV along with Decadron. The patient had serial EKG's and cardiac markers and all were negative for any acute myocardial event. Her echo showed normal LV contractility and enlarged RV cavity, LVH with enlarged LA cavity. The patient was up and about in the room. Nearly pain free after she was given two shots of Decadron and Toradol 15mg IV. Condition at the time of discharge is stable. TIME SPENT: More than 60 minutes. MTDD
--- NOTE | 2021-09-01 14:59 | PN ---
08/26/21: Level 5 08/27/21: Intermediate 08/28/21: Intermediate 08/29/21: D as in discharge MTDD
--- NOTE | 2021-09-02 10:36 | PN ---
DATE OF SERVICE: 08/28/21 SUBJECTIVE: 80 year old white female hospitalized with chest pain. Chest pain is fairly atypical. She has responded to IV Toradol and Decadron. She was seen and examined with the Nurse Practitioner. The patient has no evidence of acute CT or ischemia. Telemetry shows sinus rhythm. TIME SPENT: More than 30 minutes. Plan and coordination of the patient's care discussed in the presence of nurse. DHAVAL
== END 2021-08-29 09:30 | disposition home or self-care (01) | DRG 605 ==
LOC: ED 15:24 → MEDSURG A 18:43
PROVIDERS: ADMIT Internal Medicine; ATTEND Internal Medicine

== ENCOUNTER 2022-04-23 10:36 | Inpatient (IN) ==
[2022-04-23 10:46] VITALS: BMI 28.3
[2022-04-23] MEDS ORDERED: DUONEB NEB ONE (11:00)
[2022-04-23] MEDS ORDERED: SOLU-MEDROL 125 MG IVP STA (11:00)
--- NOTE | 2022-04-23 11:07 | ED.PDOC ---
General ED Provider: Dr. ANAI RICHARDSON MD Chief Complaint: Shortness of Air Stated Complaint: mild to mod short of breath and tightness in chest today, no injury, no fever, no NV, on 3liters nc at home, hx copd, pulmonary fibrosis, was taking medrol and zpak at home Time Seen by Provider: 04/23/22 10:42 Mode of Arrival: Walk-In Information Source: Patient Primary Care Provider: JACQUIE MEJÍA Nursing and Triage Documentation Reviewed and Agree: Yes Does patient meet sepsis criteria?: No System Inflammatory Response Syndrome: Not Applicable Sepsis Protocol: For patient's 13 years and over: Temp is 96.8 and below OR 101 and greater Pulse >90 BPM Resp >20/minute Acutely Altered Mental Status Are patient's symptoms suggestive of a new infection, such as: -Pneumonia -Skin, Soft Tissue -Endocarditis -UTI -Bone, Joint Infection -Implantable Device -Acute Abdominal Infection -Wound Infection -Meningitis -Blood Stream Catheter Infection -Unknown Review of Systems Review Of Systems Constitutional: Reports Malaise; Denies Fever Eyes: Denies Vision change Ears, Nose, Mouth, Throat: Denies Throat pain Respiratory: Reports Cough, Short of air and Wheezing; Denies Stridor Cardiac: Reports Chest pain GI: Denies Abdominal pain : Denies Burning Musculoskeletal: Reports Back pain Skin: Denies Rash or Cyanosis Neurological: Denies Cognitive dysfunction All Other Systems: Other [facility] Medical History (Updated 04/23/22 @ 13:00 by ANAI RICHARDSON MD) Anemia Asthma Breast cancer, left Cervical radiculopathy Chronic bronchitis Chronic respiratory failure COPD (chronic obstructive pulmonary disease) Deep venous thrombosis (DVT) of right peroneal vein Degenerative disc disease, cervical Depression Dyslipidemia Fibromyalgia SISI (generalized anxiety disorder) Gastroesophageal reflux disease Hiatal hernia Hypertension Hypothyroid Lumbar radiculopathy Obesity Osteoarthritis Oxygen dependent Uterine cancer Family History FATHER Diabetes BROTHER Cardiovascular disease Social History Smoking and tobacco status: Never smoker Surgical History History of cholecystectomy History of hysterectomy History of left mastectomy History of tubal ligation Female Reproductive History Menstrual Hx Hysterectomy: No Hx Tubal Ligation: Yes Physical Exam Physical Exam Appearance: Reports No pain distress Ill-appearing: None Pain Distress: None Eyes: Reports MARTIN, EOMI and Conjunctiva clear ENT: Reports Nose normal and Oropharynx normal Neck: Supple Respiratory: Reports Airway patent, Breath sounds equal and Wheezes Cardiovascular: Reports RRR GI/: Reports Soft and Nontender Musculoskeletal: Reports ROM intact and No edema Skin: Reports Warm and Dry Neurological: Reports Alert and Oriented Psychiatric: Reports Affect appropriate Interpretation Radiology Interpretation Radiology Interpretation By: Radiologist Radiology Results: No acute changes Exam Interpreted: CXR EKG Interpretation Time of EKG #1: 12:59 Rate: Normal Rhythm: Sinus Interpretation: no stemi Critical Care Note Critical Care Note Total Critical Care Time (mins): 0 Course Course Hematology/Chemistry: 04/23/22 11:13 04/23/22 11:13 Orders, Labs, Meds: Lab Review 04/23/22 04/23/22 04/23/22 11:13 11:13 11:13 WBC 9.11 RBC 3.30 L Hgb 10.4 L Hct 32.6 L MCV 98.8 MCH 31.5 H MCHC 31.9 RDW Coeff of Karina 13.2 Plt Count 167 Immature Gran % (Auto) 0.4 Neut % (Auto) 87.3 H Lymph % (Auto) 7.6 L [place] % (Auto) 4.2 Eos % (Auto) 0.2 Baso % (Auto) 0.3 Neut # (Auto) 8.0 H Lymph # (Auto) 0.7 [place] # (Auto) 0.4 Eos # (Auto) 0.0 Baso # (Auto) 0.0 Immature Gran # (Auto) 0.0 PT 10.1 INR 0.97 Puncture Site Base Excess O2 Saturation ABG pH ABG pCO2 ABG pO2 ABG HCO3 ABG Total CO2 Pj Test Hemoglobin Oxyhemoglobin Carboxyhemoglobin Total Hemoglobin O2 Delivery Device Oxygen Liter Flow Sodium 137.8 Potassium 3.45 L Chloride 99.4 Carbon Dioxide 33.9 H Anion Gap 7.95 BUN 11.1 Creatinine 0.82 Estimated GFR (MDRD) 67.00 BUN/Creatinine Ratio 13.53 Glucose 114.4 H Lactic Acid Calcium 8.69 Total Bilirubin 0.44 AST 26.4 ALT 14.9 Alkaline Phosphatase 88.8 Troponin I < 0.012 Total Protein 6.92 Albumin 3.72 Globulin 3.20 Albumin/Globulin Ratio 1.16 Influ A Molecular Assay Influ B Molecular Assay RSV Antigen SARS CoV-2 RNA Rapid ARAMIS 04/23/22 04/23/22 04/23/22 11:13 11:47 11:47 WBC RBC Hgb Hct MCV MCH MCHC RDW Coeff of Karina Plt Count Immature Gran % (Auto) Neut % (Auto) Lymph % (Auto) [place] % (Auto) Eos % (Auto) Baso % (Auto) Neut # (Auto) Lymph # (Auto) [place] # (Auto) Eos # (Auto) Baso # (Auto) Immature Gran # (Auto) PT INR Puncture Site Base Excess O2 Saturation ABG pH ABG pCO2 ABG pO2 ABG HCO3 ABG Total CO2 Pj Test Hemoglobin Oxyhemoglobin Carboxyhemoglobin Total Hemoglobin O2 Delivery Device Oxygen Liter Flow Sodium Potassium Chloride Carbon Dioxide Anion Gap BUN Creatinine Estimated GFR (MDRD) BUN/Creatinine Ratio Glucose Lactic Acid 1.19 Calcium Total Bilirubin AST ALT Alkaline Phosphatase Troponin I Total Protein Albumin Globulin Albumin/Globulin Ratio Influ A Molecular Assay Negative by naat Influ B Molecular Assay Negative by naat RSV Antigen Negative by naat SARS CoV-2 RNA Rapid ARAMIS Negative 04/23/22 12:07 WBC RBC Hgb Hct MCV MCH MCHC RDW Coeff of Karina Plt Count Immature Gran % (Auto) Neut % (Auto) Lymph % (Auto) [place] % (Auto) Eos % (Auto) Baso % (Auto) Neut # (Auto) Lymph # (Auto) [place] # (Auto) Eos # (Auto) Baso # (Auto) Immature Gran # (Auto) PT INR Puncture Site rrad Base Excess 11.8 H O2 Saturation 98.3 H ABG pH 7.46 H ABG pCO2 50.0 H ABG pO2 104.0 H ABG HCO3 35.6 H ABG Total CO2 37.1 H Pj Test + Hemoglobin 0.9 Oxyhemoglobin 98.8 Carboxyhemoglobin 0.4 L Total Hemoglobin 10.8 L O2 Delivery Device nc Oxygen Liter Flow 3.00 Sodium Potassium Chloride Carbon Dioxide Anion Gap BUN Creatinine Estimated GFR (MDRD) BUN/Creatinine Ratio Glucose Lactic Acid Calcium Total Bilirubin AST ALT Alkaline Phosphatase Troponin I Total Protein Albumin Globulin Albumin/Globulin Ratio Influ A Molecular Assay Influ B Molecular Assay RSV Antigen SARS CoV-2 RNA Rapid ARAMIS Orders Category Date Time Status ABG DRAW REQUEST Stat CARDIO 04/23/22 11:43 Completed EKG-(ED ONLY) Stat CARDIO 04/23/22 11:00 Completed ABG COOX Stat LAB 04/23/22 12:07 Completed BLOOD CULTURE Stat LAB 04/23/22 10:28 Received CBC W/ AUTO DIFF Stat LAB 04/23/22 11:13 Completed CMP [COMPREHENSIVE METABOLIC PANEL] Stat LAB 04/23/22 11:13 Completed LACTIC ACID Stat LAB 04/23/22 11:13 Completed MOLECULAR FLU A & B [FLU A/B MOLECULAR] Stat LAB 04/23/22 11:47 Completed PT WITH INR Stat LAB 04/23/22 11:13 Completed RAPID STREP SCREEN [MOLECULAR GROUP A STREP] Stat LAB 04/23/22 11:47 Completed RSV Stat LAB 04/23/22 11:47 Completed SARS COV-2 RNA RAPID ARAMIS Stat LAB 04/23/22 11:47 Completed TROPONIN I Stat LAB 04/23/22 11:13 Completed Ipratropium/Albuterol Neb [Duoneb] MEDS 04/23/22 11:00 Discontinued 3 ml NEB ONCE ONE Methylprednisolone Sod Succ/Pf [Solu-Medrol 125 mg] MEDS 04/23/22 11:55 Discontinued 125 mg IM ONCE STA CHEST, 1V AP ONLY Stat RADS 04/23/22 11:00 Completed Medications Discontinued Medications Generic Name Dose Route Start Last Admin Trade Name Freq PRN Reason Stop Dose Admin Albuterol/Ipratropium 3 ml 04/23/22 11:00 04/23/22 11:24 Ipratropium/Albuterol Vial.Neb NEB 04/23/22 11:01 3 ml ONCE ONE Administration Methylprednisolone Sodium Succinate 125 mg 04/23/22 11:55 04/23/22 12:00 Methylprednisolone Sod Succ/Pf 125 Mg/2 Ml Vial IM 04/23/22 11:56 125 mg ONCE STA Administration Vital Signs: Temp Pulse Resp BP Pulse Ox 04/23/22 10:38 97.2 F L 69 18 131/74 98 Discharge Plan Discharge Patient Disposition: ADMITTED INPATIENT Discharge Problem: Chest pain in adult Prescriptions: No Action lorazepam 1 MG tablet 1 mg PO BID atorvastatin [Lipitor] 10 MG tablet 25 mg PO DAILY montelukast [Singulair] 10 MG tablet 10 mg PO DAILY ropinirole 1 mg Tablet 1 mg PO BEDTIME levothyroxine [Synthroid] 75 mcg Tablet 75 mcg PO QDAC tamoxifen 20 mg Tablet 20 mg PO BEDTIME albuterol sulfate [Proventil HFA] 90 mcg/actuation Hfa Aerosol Inhaler 2 puff INHALATION QID Qty: 18 1RF budesonide-formoterol [Symbicort] 160-4.5 mcg/actuation Hfa Aerosol Inhaler 2 puff INHALATION BID Qty: 18 1RF Rx Instructions: RINSE MOUTH OUT AFTER EACH USE furosemide 20 mg Tablet 20 mg PO QDAC Qty: 30 1RF Rx Instructions: START TOMORROW 09/17/2020 tramadol 50 mg tablet 50 mg PO DAILY pantoprazole 40 mg tablet,delayed release (DR/EC) 40 mg PO DAILY sertraline 50 mg tablet 50 mg PO DAILY metoprolol tartrate 25 mg tablet 25 mg PO DAILY guaifenesin [Mucinex] 600 mg Tablet Extended Release 12hr 600 mg PO BID aspirin 81 mg Capsule 81 mg PO DAILY prednisone 10 mg tablet 10 mg PO DAILY azithromycin 250 mg tablet 250 mg PO DAILY Did you review [place] [employer] WORKER?: Not Applicable ED Provider: ANAI RICHARDSON Condition: Stable Physician Progress Note: full tele admit d/w Dr Mejía []
[2022-04-23 11:18] LABS: BASOPHILS % (AUTO) 0.3 % (0.0-3.0); EOSINOPHILS % (AUTO) 0.2 % (0.0-7.0); HEMATOCRIT 32.6 % (37.0-47.0); HEMOGLOBIN 10.4 g/dl (12.0-16.0); IMMATURE GRANULOCYTE % (AUTO) 0.4 % (0.0-5.0); LYMPHOCYTES # (AUTO) 0.7 K/uL (0.60-3.4); LYMPHOCYTES % (AUTO) 7.6 (10.0-50.0); MEAN CORPUSCULAR HEMOGLOBIN 31.5 pg (27.0-31.0); MEAN CORPUSCULAR HGB CONC 31.9 (31.8-35.4); MEAN CORPUSCULAR VOLUME 98.8 fl (81.0-99.0); MONOCYTES # (AUTO) 0.4 K/uL (0.4-2.0); MONOCYTES % (AUTO) 4.2 (0-10); NEUTROPHILS % (AUTO) 87.3 % (42.2-75.2); PLATELET COUNT 167 10^3/uL (140-440); RDW COEFFICIENT OF VARIATION 13.2 % (11.6-14.8); WHITE BLOOD COUNT 9.11 K/ul (4.6-10.2)
[2022-04-23 11:30] LABS: ALANINE AMINOTRANSFERASE 14.9 U/L (0-35); ALBUMIN 3.72 g/dL (3.5-5.0); ALKALINE PHOSPHATASE 88.8 U/L (53-141); ASPARTATE AMINO TRANSFERASE 26.4 U/L (14-36); BILIRUBIN,TOTAL 0.44 mg/dL (0.2-1.3); BLOOD UREA NITROGEN 11.1 mg/dL (7-17); CALCIUM 8.69 mg/dL (8.4-10.2); CARBON DIOXIDE 33.9 mmol/L (22-30.0); CHLORIDE 99.4 mmol/L (98-107); CREATININE 0.82 mg/dL (0.60-1.30); GLUCOSE 114.4 mg/dL (74-106); POTASSIUM 3.45 mmol/L (3.5-5.1); SODIUM 137.8 mmol/L (134.5-145); TOTAL PROTEIN 6.92 g/dL (6.3-8.2)
[2022-04-23 11:33] LABS: PROTHROMBIN TIME 10.1 SEC (9.3-11.0)
--- NOTE | 2022-04-23 11:34 | DI ---
EXAM: Frontal view of the chest. HISTORY: Cough. COMPARISON: Chest radiograph 08/26/2021. FINDINGS: Surgical clips project over the left chest and right upper quadrant of the abdomen. Atherosclerotic calcifications. Borderline cardiomegaly appears unchanged. Asymmetric elevation right hemidiaphragm. Chronic coarse reticular opacities in the lungs consistent with interstitial disease. No new consolidation. No visible pleural effusion or pneumothorax. No acute osseous abnormality. IMPRESSION: No acute process. Chronic interstitial lung disease. Atherosclerosis.
[2022-04-23 11:42] LABS: TROPONIN I < 0.012 ng/ml (0.0000-0.120)
[2022-04-23] MEDS ORDERED: SOLU-MEDROL 125 MG IM STA (11:55)
[2022-04-23 12:18] LABS: MOLECULAR FLU A NEGATIVE BY NAAT (NEGATIVE); MOLECULAR FLU B NEGATIVE BY NAAT (NEGATIVE); RSV MOLECULAR NEGATIVE BY NAAT (NEGATIVE)
[2022-04-23 12:25] LABS: ABG PH 7.46 (7.35-7.45); BEecf 11.8 (-2.0-3.0); COHb 0.4 (0.5-1.5); HCO3 35.6 (21-28)
[2022-04-23 12:26] LABS: ABG O2 HGB 98.8 % (95-100); MetHb 0.9 (0-1.5); TCO2 37.1 (19-24); sO2 98.3 % (94-98); tHb 10.8 g/dl (11.7-17.4)
[2022-04-23] MEDS ORDERED: ASPIRIN CHEWABLE PO STA (13:08)
[2022-04-23] MEDS ORDERED: SODIUM CHLORIDE 1,000 ML IV SCH (13:30)
[2022-04-23] MEDS ORDERED: ROCEPHIN 1 GM/50 ML D5W 1 GM/50 ML BAG IV SCH (13:30)
[2022-04-23] MEDS: VENTOLIN HFA (PER PUFF-WITH SPACER) IH SCH ×2 (13:49→19:42)
[2022-04-23] MEDS: LIDOCAINE HCL 1% SDV IM SCH (16:06)
[2022-04-23] MEDS: ROCEPHIN 1 GM VIAL IM SCH (16:06)
[2022-04-23] MEDS ORDERED: VENTOLIN HFA (PER PUFF-WITH SPACER) IH SCH (17:00)
[2022-04-23] MEDS ORDERED: TORADOL IVP ONE (17:53)
[2022-04-23] MEDS ORDERED: DECADRON IM ONE ×2 (17:53→21:00)
[2022-04-23] MEDS ORDERED: TORADOL IM ONE (19:20)
[2022-04-23 19:50] LABS: TROPONIN I (ISTAT) 0.01 ng/ml (0.00-0.08)
[2022-04-23] MEDS: ATIVAN PO SCH (20:46)
[2022-04-23] MEDS: MUCINEX PO SCH (20:46)
[2022-04-23] MEDS: REQUIP PO SCH (20:46)
[2022-04-23] MEDS: SOLU-MEDROL 40 MG IVP SCH (20:48)
[2022-04-23] MEDS: SYMBICORT 160-4.5 MCG INHALER IH SCH (20:48)
[2022-04-24 03:40] LABS: BASOPHILS % (AUTO) 0.1 % (0.0-3.0); HEMATOCRIT 32.8 % (37.0-47.0); HEMOGLOBIN 10.4 g/dl (12.0-16.0); IMMATURE GRANULOCYTE % (AUTO) 0.4 % (0.0-5.0); LYMPHOCYTES # (AUTO) 0.6 K/uL (0.60-3.4); LYMPHOCYTES % (AUTO) 6.1 (10.0-50.0); MEAN CORPUSCULAR HEMOGLOBIN 31.1 pg (27.0-31.0); MEAN CORPUSCULAR HGB CONC 31.7 (31.8-35.4); MEAN CORPUSCULAR VOLUME 98.2 fl (81.0-99.0); MONOCYTES # (AUTO) 0.3 K/uL (0.4-2.0); MONOCYTES % (AUTO) 3.3 (0-10); NEUTROPHILS # (AUTO) 8.8 K/ul (2.0-6.9); NEUTROPHILS % (AUTO) 90.1 % (42.2-75.2); PLATELET COUNT 175 10^3/uL (140-440); RED BLOOD COUNT 3.34 10^6/ul (4.20-5.40); WHITE BLOOD COUNT 9.75 K/ul (4.6-10.2)
[2022-04-24 03:52] LABS: TROPONIN I (ISTAT) 0.01 ng/ml (0.00-0.08)
[2022-04-24] MEDS: VENTOLIN HFA (PER PUFF-WITH SPACER) IH SCH ×4 (04:50→19:46)
[2022-04-24] MEDS: PROTONIX PO SCH (05:40)
[2022-04-24] MEDS: SYNTHROID PO SCH (05:40)
[2022-04-24] MEDS: LASIX TAB PO SCH (05:40)
[2022-04-24 05:55] LABS: TROPONIN I < 0.012 ng/ml (0.0000-0.120)
[2022-04-24 06:42] LABS: TROPONIN I < 0.012 ng/ml (0.0000-0.120)
[2022-04-24] MEDS ORDERED: ULTRAM PO ONE (07:24)
[2022-04-24] MEDS ORDERED: PREDNISONE PO SCH (08:30)
[2022-04-24] MEDS: LIPITOR PO SCH (08:41)
[2022-04-24] MEDS: LIDOCAINE HCL 1% SDV IM SCH (08:42)
[2022-04-24] MEDS: ATIVAN PO SCH ×2 (08:42→21:19)
[2022-04-24] MEDS: ZOLOFT PO SCH (08:47)
[2022-04-24] MEDS: ZITHROMAX PO SCH (08:47)
[2022-04-24] MEDS: MUCINEX PO SCH ×2 (08:47→21:20)
[2022-04-24] MEDS: LOPRESSOR PO SCH (08:47)
[2022-04-24] MEDS: ASPIRIN EC PO SCH (08:48)
[2022-04-24] MEDS: ROCEPHIN 1 GM VIAL IM SCH (08:49)
[2022-04-24] MEDS: SYMBICORT 160-4.5 MCG INHALER IH SCH ×2 (08:55→21:20)
[2022-04-24] MEDS: SOLU-MEDROL 40 MG IVP SCH (09:00)
[2022-04-24] MEDS ORDERED: NON-FORMULARY MEDICATION (Aspirin 81 mg Capsule) PO SCH (09:00)
[2022-04-24] MEDS ORDERED: LIPITOR PO SCH (09:00)
[2022-04-24] MEDS: ULTRAM PO SCH (09:00)
[2022-04-24] MEDS: TORADOL IM PRN ×2 (13:36→18:58)
[2022-04-24] MEDS: DECADRON IM SCH (13:37)
--- NOTE | 2022-04-24 13:54 | PN ---
DATE OF SERVICE: 04/23/22 ADMIT NOTE SUBJECTIVE: The patient was hospitalized after being seen by ER attending and also by me because of her chest tightness. The patient's chest tightness is present for last 48 hours. The patient is anxious. The chest tightness when she takes a deep breath. The patient's blood gasses are examined with pO2 of more than 100 with pCO2 50 on 3 liters of oxygen. The patient doesn't seem to be in distress at all. PHYSICAL EXAMINATION: HEENT: Head normocephalic, atraumatic. Eyes: Extraocular muscles are intact. Pupils are equal, round and reactive to light and accommodation. Ears: No lesions. Nose appeared normal. Throat: No exudate or erythema. NECK: Supple. No JVD, no carotid bruit. No lymphadenopathy or thyromegaly. LUNGS: Decreased breath sounds but good air entry. Clear to auscultation. Percussion note normal. Chest symmetrical. HEART: S1, S2, no S3. No murmurs. No cyanosis or clubbing. No ascites. Pulses: Dorsalis pedis and posterior tibial pulses +1 to +2 bilaterally. ABDOMEN: Soft. Nontender. Bowel sounds active. No CVA tenderness. No mass felt. EXTREMITIES: Trace edema. Full range of motion of all extremities, equal. NEUROLOGIC: No focal deficit. Cranial nerves II through XII are grossly intact. No headache. No double vision. SKIN: Not dry. Intact. Turgor - normal. LYMPHATIC: No palpable lymph nodes/no lymphedema. MUSCULOSKELETAL: Normal joints with no swelling. Muscle tone is normal. LABS: EKG examined no acute changes noted, sinus rhythm. Chest x-ray and all the lab test are looking practically normal. ASSESSMENT: 1. Chest tightness, rule out [place] or ischemia, likely pleuritic type of pain 2. History of severe chronic lung disease 3. Hypertension 4. Dyslipidemia 5. Sedentary lifestyle PLAN: 1. Hospitalize the patient with telemetry 2. Rule out [place] or Ischemia 3. Continue all the home medications 4. The patient is to be given 1cc Decadron along with 50mg Toradol for pleuritic pain CONDITION: Stable. TIME SPENT: More than 30 minutes. Plan and coordination of the patient's care discussed in the presence of nurse. DHAVAL
[2022-04-24] MEDS: SINGULAIR PO SCH (17:03)
[2022-04-24] MEDS: REQUIP PO SCH (21:19)
[2022-04-25] MEDS: VENTOLIN HFA (PER PUFF-WITH SPACER) IH SCH ×4 (05:00→19:39)
[2022-04-25 05:02] LABS: BASOPHILS % (AUTO) 0.2 % (0.0-3.0); EOSINOPHILS # (AUTO) 0.1 K/ul (0.0-0.7); EOSINOPHILS % (AUTO) 0.5 % (0.0-7.0); HEMATOCRIT 32.9 % (37.0-47.0); HEMOGLOBIN 10.3 g/dl (12.0-16.0); IMMATURE GRANULOCYTE % (AUTO) 0.4 % (0.0-5.0); LYMPHOCYTES % (AUTO) 19.6 (10.0-50.0); MEAN CORPUSCULAR HEMOGLOBIN 31.2 pg (27.0-31.0); MEAN CORPUSCULAR HGB CONC 31.3 (31.8-35.4); MEAN CORPUSCULAR VOLUME 99.7 fl (81.0-99.0); MONOCYTES # (AUTO) 0.6 K/uL (0.4-2.0); MONOCYTES % (AUTO) 6.2 (0-10); NEUTROPHILS # (AUTO) 7.3 K/ul (2.0-6.9); NEUTROPHILS % (AUTO) 73.1 % (42.2-75.2); PLATELET COUNT 183 10^3/uL (140-440); RDW COEFFICIENT OF VARIATION 13.2 % (11.6-14.8); WHITE BLOOD COUNT 9.98 K/ul (4.6-10.2)
[2022-04-25 05:16] LABS: ALANINE AMINOTRANSFERASE 15.2 U/L (0-35); ALBUMIN 3.36 g/dL (3.5-5.0); ALKALINE PHOSPHATASE 80.3 U/L (53-141); ASPARTATE AMINO TRANSFERASE 31.2 U/L (14-36); BILIRUBIN,TOTAL 0.37 mg/dL (0.2-1.3); BLOOD UREA NITROGEN 15.8 mg/dL (7-17); CALCIUM 8.89 mg/dL (8.4-10.2); CARBON DIOXIDE 33.9 mmol/L (22-30.0); CHLORIDE 101.8 mmol/L (98-107); CREATININE 0.85 mg/dL (0.60-1.30); GLUCOSE 84.2 mg/dL (74-106); POTASSIUM 3.38 mmol/L (3.5-5.1); SODIUM 138.2 mmol/L (134.5-145); TOTAL PROTEIN 6.21 g/dL (6.3-8.2)
[2022-04-25] MEDS: LASIX TAB PO SCH (05:55)
[2022-04-25] MEDS: PROTONIX PO SCH (05:56)
[2022-04-25] MEDS: TORADOL IM PRN ×3 (05:56→21:36)
[2022-04-25] MEDS: SYNTHROID PO SCH (05:56)
[2022-04-25] MEDS: ULTRAM PO SCH (08:12)
[2022-04-25] MEDS: LOPRESSOR PO SCH (08:12)
[2022-04-25] MEDS: ATIVAN PO SCH ×2 (08:12→20:33)
[2022-04-25] MEDS: LIPITOR PO SCH (08:12)
[2022-04-25] MEDS: ROCEPHIN 1 GM VIAL IM SCH (08:13)
[2022-04-25] MEDS: ZITHROMAX PO SCH (08:13)
[2022-04-25] MEDS: DECADRON IM SCH (08:13)
[2022-04-25] MEDS: ASPIRIN EC PO SCH (08:13)
[2022-04-25] MEDS: ZOLOFT PO SCH (08:13)
[2022-04-25] MEDS: MUCINEX PO SCH ×2 (08:13→20:33)
[2022-04-25] MEDS: LIDOCAINE HCL 1% SDV IM SCH (08:13)
[2022-04-25] MEDS: SYMBICORT 160-4.5 MCG INHALER IH SCH ×2 (08:21→20:34)
[2022-04-25] MEDS: K-DUR PO SCH ×2 (14:13→17:05)
[2022-04-25] MEDS: TYLENOL PO SCH ×2 (14:13→20:32)
[2022-04-25] MEDS: SINGULAIR PO SCH (17:05)
[2022-04-25] MEDS: REQUIP PO SCH (20:32)
[2022-04-26] MEDS: VENTOLIN HFA (PER PUFF-WITH SPACER) IH SCH ×4 (05:13→20:20)
[2022-04-26 05:17] LABS: BASOPHILS % (AUTO) 0.2 % (0.0-3.0); EOSINOPHILS # (AUTO) 0.2 K/ul (0.0-0.7); EOSINOPHILS % (AUTO) 2.4 % (0.0-7.0); HEMATOCRIT 31.7 % (37.0-47.0); HEMOGLOBIN 10.1 g/dl (12.0-16.0); IMMATURE GRANULOCYTE # (AUTO) 0.1 (0.0-1.0); IMMATURE GRANULOCYTE % (AUTO) 0.6 % (0.0-5.0); LYMPHOCYTES # (AUTO) 2.5 K/uL (0.60-3.4); LYMPHOCYTES % (AUTO) 26.7 (10.0-50.0); MEAN CORPUSCULAR HEMOGLOBIN 31.3 pg (27.0-31.0); MEAN CORPUSCULAR HGB CONC 31.9 (31.8-35.4); MEAN CORPUSCULAR VOLUME 98.1 fl (81.0-99.0); MONOCYTES # (AUTO) 0.5 K/uL (0.4-2.0); MONOCYTES % (AUTO) 5.7 (0-10); NEUTROPHILS % (AUTO) 64.4 % (42.2-75.2); PLATELET COUNT 187 10^3/uL (140-440); RDW COEFFICIENT OF VARIATION 13.4 % (11.6-14.8); RED BLOOD COUNT 3.23 10^6/ul (4.20-5.40); WHITE BLOOD COUNT 9.31 K/ul (4.6-10.2)
[2022-04-26 05:33] LABS: ALANINE AMINOTRANSFERASE 14.6 U/L (0-35); ALBUMIN 3.13 g/dL (3.5-5.0); ALKALINE PHOSPHATASE 78.3 U/L (53-141); ASPARTATE AMINO TRANSFERASE 23.1 U/L (14-36); BILIRUBIN,TOTAL 0.36 mg/dL (0.2-1.3); BLOOD UREA NITROGEN 14.3 mg/dL (7-17); CALCIUM 8.44 mg/dL (8.4-10.2); CHLORIDE 102.7 mmol/L (98-107); CREATININE 0.85 mg/dL (0.60-1.30); GLUCOSE 87.8 mg/dL (74-106); POTASSIUM 3.4 mmol/L (3.5-5.1); TOTAL PROTEIN 5.93 g/dL (6.3-8.2)
[2022-04-26] MEDS: LASIX TAB PO SCH (06:00)
[2022-04-26] MEDS: SYNTHROID PO SCH (06:00)
[2022-04-26] MEDS: PROTONIX PO SCH (06:01)
[2022-04-26] MEDS: TORADOL IM PRN ×2 (06:58→15:50)
[2022-04-26] MEDS: ROCEPHIN 1 GM VIAL IM SCH (08:21)
[2022-04-26] MEDS: LIDOCAINE HCL 1% SDV IM SCH (08:22)
[2022-04-26] MEDS: DECADRON IM SCH (08:22)
[2022-04-26] MEDS: K-DUR PO SCH ×2 (08:23→17:00)
[2022-04-26] MEDS: LIPITOR PO SCH (08:23)
[2022-04-26] MEDS: ATIVAN PO SCH ×2 (08:23→20:53)
[2022-04-26] MEDS: LOPRESSOR PO SCH (08:23)
[2022-04-26] MEDS: ZOLOFT PO SCH (08:23)
[2022-04-26] MEDS: ULTRAM PO SCH (08:23)
[2022-04-26] MEDS: ZITHROMAX PO SCH (08:23)
[2022-04-26] MEDS: ASPIRIN EC PO SCH (08:23)
[2022-04-26] MEDS: TYLENOL PO SCH ×2 (08:23→20:53)
[2022-04-26] MEDS: MUCINEX PO SCH ×2 (08:23→20:53)
[2022-04-26] MEDS: SYMBICORT 160-4.5 MCG INHALER IH SCH ×2 (08:24→20:54)
[2022-04-26] MEDS: SINGULAIR PO SCH (17:00)
[2022-04-26] MEDS ORDERED: TORADOL IM STA (17:36)
[2022-04-26] MEDS ORDERED: ULTRAM PO STA (17:37)
[2022-04-26] MEDS ORDERED: DECADRON IM STA (17:37)
[2022-04-26] MEDS: REQUIP PO SCH (20:53)
[2022-04-27] MEDS: TORADOL IM PRN (02:44)
[2022-04-27] MEDS: VENTOLIN HFA (PER PUFF-WITH SPACER) IH SCH (04:40)
[2022-04-27 05:12] LABS: BASOPHILS % (AUTO) 0.1 % (0.0-3.0); EOSINOPHILS % (AUTO) 0.1 % (0.0-7.0); HEMATOCRIT 31.6 % (37.0-47.0); HEMOGLOBIN 10.2 g/dl (12.0-16.0); IMMATURE GRANULOCYTE # (AUTO) 0.1 (0.0-1.0); IMMATURE GRANULOCYTE % (AUTO) 0.7 % (0.0-5.0); LYMPHOCYTES # (AUTO) 0.9 K/uL (0.60-3.4); LYMPHOCYTES % (AUTO) 8.2 (10.0-50.0); MEAN CORPUSCULAR HEMOGLOBIN 31.3 pg (27.0-31.0); MEAN CORPUSCULAR HGB CONC 32.3 (31.8-35.4); MEAN CORPUSCULAR VOLUME 96.9 fl (81.0-99.0); MONOCYTES # (AUTO) 0.5 K/uL (0.4-2.0); MONOCYTES % (AUTO) 4.9 (0-10); NEUTROPHILS # (AUTO) 9.2 K/ul (2.0-6.9); PLATELET COUNT 203 10^3/uL (140-440); RDW COEFFICIENT OF VARIATION 13.2 % (11.6-14.8); RED BLOOD COUNT 3.26 10^6/ul (4.20-5.40); WHITE BLOOD COUNT 10.67 K/ul (4.6-10.2)
[2022-04-27 05:26] LABS: ALANINE AMINOTRANSFERASE 15.2 U/L (0-35); ALBUMIN 3.34 g/dL (3.5-5.0); ALKALINE PHOSPHATASE 74.8 U/L (53-141); ASPARTATE AMINO TRANSFERASE 24.1 U/L (14-36); BILIRUBIN,TOTAL 0.43 mg/dL (0.2-1.3); BLOOD UREA NITROGEN 15.5 mg/dL (7-17); CALCIUM 8.94 mg/dL (8.4-10.2); CARBON DIOXIDE 31.3 mmol/L (22-30.0); CHLORIDE 102.9 mmol/L (98-107); CREATININE 0.79 mg/dL (0.60-1.30); GLUCOSE 115.5 mg/dL (74-106); POTASSIUM 4.57 mmol/L (3.5-5.1); SODIUM 136.9 mmol/L (134.5-145); TOTAL PROTEIN 6.18 g/dL (6.3-8.2)
[2022-04-27] MEDS: PROTONIX PO SCH ×2 (05:40→16:51)
[2022-04-27] MEDS: LASIX TAB PO SCH (05:40)
[2022-04-27] MEDS: SYNTHROID PO SCH (05:40)
[2022-04-27] MEDS ORDERED: TORADOL IM PRN (08:59)
[2022-04-27] MEDS ORDERED: DECADRON IM SCH (09:00)
[2022-04-27] MEDS: K-DUR PO SCH ×2 (09:50→16:51)
[2022-04-27] MEDS: MUCINEX PO SCH ×2 (09:50→21:56)
[2022-04-27] MEDS: TYLENOL PO SCH ×2 (09:51→22:38)
[2022-04-27] MEDS: LIPITOR PO SCH (09:51)
[2022-04-27] MEDS: ZOLOFT PO SCH (09:51)
[2022-04-27] MEDS: ATIVAN PO SCH ×2 (09:51→21:56)
[2022-04-27] MEDS: LOPRESSOR PO SCH (09:52)
[2022-04-27] MEDS: ASPIRIN EC PO SCH (09:52)
[2022-04-27] MEDS: DECADRON IM SCH (09:52)
[2022-04-27] MEDS: SYMBICORT 160-4.5 MCG INHALER IH SCH ×2 (09:57→21:59)
[2022-04-27] MEDS: NORCO 5-325 PO PRN ×2 (10:05→22:37)
--- NOTE | 2022-04-27 10:47 | PCM.PROG ---
Attending Provider: ATTENDING PROVIDER: Dr. JACQUIE WRAY This patient is seen with Lia Da Silva, Nurse Practitioner. DATE OF SERVICE: 04/27/22 SUBJECTIVE: This 81 year old /WHITE F was hospitalized 04/23/22. Complaining of pain 10 out of 10 pain with breathing. Feels like she can't breath. Saturation 99 to 100 on 2 liters. The patient does have chronic cough. Chest x-ray was normal. We will do CT of the chest this morning. Described chest pain as sharp, right sided. REVIEW OF SYSTEMS: CONSTITUTIONAL: No night sweats. No fatigue, malaise, lethargy. No fever or ch ills. HEENT: Eyes: No visual changes. No eye pain. No eye discharge. ENT: No runny nose. No epistaxis. No sinus pain. No odynophagia. No congestion. RESPIRATORY: Cough, no congestion. No hemoptysis. Shortness of breath. CARDIOVASCULAR: No angina symptoms. No CHF symptoms. Pleuritic chest pain. No p alpitations. No orthopnea.. GASTROINTESTINAL: No abdominal pain. No nausea or vomiting. No diarrhea or constipation. No hematemesis. No hematochezia. GENITOURINARY: No urgency. No frequency. No dysuria. No hematuria. No obstructive symptoms. No discharge. No pain. No significant abnormal bleeding. MUSCULOSKELETAL: No musculoskeletal pain; no joint swelling. NEUROLOGICAL: Awake, alert, oriented to time, place and person. No headache. No neck pain. No syncope. No seizures. No dizziness. PSYCHIATRIC: Not anxious. No depression. No suicidal thoughts. No homicidal thoughts. SKIN: No rash. No lesions. No wounds. ENDOCRINE: No unexplained weight loss. No weight gain. HEMATOLOGIC/LYMPHATIC: No anemia. No purpura. No petechiae. No prolonged or excessive bleeding. No palpable lymph nodes. PHYSICAL EXAMINATION: GENERAL: The patient is awake, alert and oriented, sitting in bed in no distress. VITAL SIGNS: Temperature 97.9 F, Pulse 107, Respiratory Rate 20, BP 151/86, Pulse Ox 95% HEENT: Head normocephalic, atraumatic. Eyes: Extraocular muscles are intact. Pupils are equal, round and reactive to light and accommodation. Ears: No lesions. Nose appeared normal. Throat: No exudate or erythema. NECK: Supple. No JVD, no carotid bruit. No lymphadenopathy or thyromegaly. LUNGS: Diminished breath sounds. Clear to auscultation. Percussion note normal. Chest symmetrical. HEART: S1, S2, no S3. No murmurs. No cyanosis or clubbing. No ascites. Pulses: Dorsalis pedis and posterior tibial pulses +1 to +2 both sides. ABDOMEN: Soft. Non-tender. Bowel sounds active. No CVA tenderness. No mass felt. EXTREMITIES: No edema. Full range of motion of all extremities, equal. NEUROLOGIC: No focal deficit. Cranial nerves II through XII are grossly intact. No headache. No double vision. SKIN: Not dry. Intact. Turgor-normal. LYMPHATIC: No palpable lymph nodes/no lymphedema. MUSCULOSKELETAL: Normal joints with no swelling. Muscle tone is normal. LAB REVIEW: 04/27/22 04:50 04/27/22 04:50 04/27/22 04:50: Sodium 136.9, Potassium 4.57, Chloride 102.9, Carbon Dioxide 31.3 H, Anion Gap 7.27, BUN 15.5, Creatinine 0.79, Estimated GFR (MDRD) 70.00, BUN/Creatinine Ratio 19.62, Glucose 115.5 H, Calcium 8.94, Total Bilirubin 0.43, AST 24.1, ALT 15.2, Alkaline Phosphatase 74.8, Total Protein 6.18 L, Albumin 3.34 L, Globulin 2.84, Albumin/Globulin Ratio 1.17 04/27/22 04:50: WBC 10.67 H, RBC 3.26 L, Hgb 10.2 L, Hct 31.6 L, MCV 96.9, MCH 31.3 H, MCHC 32.3, RDW Coeff of Karina 13.2, Plt Count 203, Immature Gran % (Auto) 0.7, Neut % (Auto) 86.0 H, Lymph % (Auto) 8.2 L, [place] % (Auto) 4.9, Eos % (Auto) 0.1, Baso % (Auto) 0.1, Neut # (Auto) 9.2 H, Lymph # (Auto) 0.9, [place] # (Auto) 0.5, Eos # (Auto) 0.0, Baso # (Auto) 0.0, Immature Gran # (Auto) 0.1 ASSESSMENT: Please see below. 1. Right sided pleuritic pain 2. COPD with chronic respiratory failure 3. Obesity 4. Hypertension PLAN: 1. Increase Protonix to BID 2. CT chest with and without 3. Decadron 6mg IM 4. Toradol 15mg TID 5. [place] 5mg BID PRN 6. Discontinue Tramadol 7. Albuterol NEB TID 8. Hold Ventolin inhaler Plan and coordination of the patient's care discussed in the presence of Registration Coordinator and nurse. SCRIBED BY: Dimas GR scribed while in presence of service performed by Dr. Wray/Lia Da Silva APRN on 04/27/22 ([id number])
--- NOTE | 2022-04-27 13:51 | PN ---
DATE OF SERVICE: 04/25/22 SUBJECTIVE: 81 year old white female hospitalized with chest pain. The patient's chest pain was more like pleuritic pain. The patient still has likely costal chondritis along with pleuritic type of pain. The patient has pain off and on. Cardiovascular status otherwise is stable. REVIEW OF SYSTEMS: CONSTITUTIONAL: No night sweats. No fatigue, malaise, lethargy. No fever or chills. HEENT: Eyes: No visual changes. No eye pain. No eye discharge. ENT: No runny nose. No epistaxis. No sinus pain. No sore throat. No odynophagia. No congestion. RESPIRATORY: No cough, no congestion. No hemoptysis. Shortness of breath on exertion, usual complaint. CARDIOVASCULAR: No angina symptoms. No CHF symptoms. Chest tightness which is more pronounced with deep inspiration. No palpitations. No PND. No orthopnea. GASTROINTESTINAL: No abdominal pain. No nausea or vomiting. No diarrhea or constipation. No hematemesis. No hematochezia. GENITOURINARY: No urgency. No frequency. No dysuria. No hematuria. No obstructive symptoms. No discharge. No pain. No significant abnormal bleeding. MUSCULOSKELETAL: No musculoskeletal pain; no joint swelling. NEUROLOGICAL: No headache. No neck pain. No syncope. No seizures. No dizziness. PSYCHIATRIC: Not anxious. No depression. No suicidal thoughts. No homicidal thoughts. SKIN: No rash. No lesions. No wounds. ENDOCRINE: No unexplained weight loss. No weight gain. HEMATOLOGIC/LYMPHATIC: No anemia. No purpura. No petechiae. No prolonged or excessive bleeding. No palpable lymph nodes. PHYSICAL EXAMINATION: VITAL SIGNS: Temperature 98.5, pulse 92, respiratory rate 20, blood pressure 150/88 and pulse ox 98%. HEENT: Head normocephalic, atraumatic. Eyes: Extraocular muscles are intact. Pupils are equal, round and reactive to light and accommodation. Ears: No lesions. Nose appeared normal. Throat: No exudate or erythema. NECK: Supple. No JVD, no carotid bruit. No lymphadenopathy or thyromegaly. LUNGS: Decreased breath sounds but clear to auscultation. Percussion note normal. Chest symmetrical. HEART: S1, S2, no S3. No murmurs. No cyanosis or clubbing. No ascites. Pulses: Dorsalis pedis and posterior tibial pulses +1 to +2 bilaterally. Costal chondral junction tenderness. ABDOMEN: Soft. Nontender. Bowel sounds active. No CVA tenderness. No mass felt. EXTREMITIES: No edema. Full range of motion of all extremities, equal. NEUROLOGIC: No focal deficit. Cranial nerves II through XII are grossly intact. No headache. No double vision. SKIN: Not dry. Intact. Turgor - normal. LYMPHATIC: No palpable lymph nodes/no lymphedema. MUSCULOSKELETAL: Normal joints with no swelling. Muscle tone is normal. LABS: Hgb 10.3, hct 32, WBC 9,900 normal differential, creatinine 0.8, BUN 15, potassium 3.3. ASSESSMENT: 1. Pleuritic type of pain 2. Costal chondritis type of pain 3. Severe chronic lung disease with respiratory failure 4. Hypokalemia PLAN: 1. Give K-tab 20meq twice a day daily 2. Two tablets Tylenol twice a day 3. Toradol for pain 4. Continue IV Toradol 5. 1cc Decadron daily TIME SPENT: More than 30 minutes. Plan and coordination of the patient's care discussed in the presence of nurse. DHAVAL
[2022-04-27] MEDS: ALBUTEROL 0.083% NEB NEB SCH ×2 (14:15→20:15)
--- NOTE | 2022-04-27 15:38 | CT ---
EXAM: CT chest without contrast HISTORY: Right-sided chest pain and shortness of air COMPARISON: 12/10/2020 TECHNIQUE: CT chest performed without intravenous contrast. Coronal and sagittal reformatted images obtained. FINDINGS: Thoracic inlet unremarkable. Heart moderately enlarged. Coronary calcifications. No per icardial effusion. Aorta normal in caliber. Moderate atherosclerosis. Small hiatal hernia. Evalua tion for hilar lymphadenopathy limited without contrast. Calcified lymph nodes, consistent with old granulomatous disease. Patient status post cholecystectomy. No acute abnormalities of the bones. D egenerative change in the spine. Central airway patent. No pleural effusion. No pneumothorax. Red emonstration of diffuse subpleural reticular opacities, band-like opacities, ground-glass opacities, bronchial thickening and traction bronchiectasis that is overall similar to prior examination. New o r increased 6 mm perifissural nodular opacity in the left lung image 24. Elevation right hemidiaphrag m. IMPRESSION: 1. Similar appearance of nonspecific fibrosis. 2. New or increased. 6 mm perifissural nodular density in the left lung. Recommend CT follow-up in 3 months. 3. Cardiomegaly. 4. Coronary calcifications. Atherosclerosis. All CT scans are performed using dose optimization techniques as appropriate to the performed exam an d include at least one of the following: Automated exposure control, adjustment of the mA and/or kV according t o size, and the use of iterative reconstruction technique.
[2022-04-27] MEDS: SINGULAIR PO SCH (16:51)
[2022-04-27] MEDS: REQUIP PO SCH (21:56)
[2022-04-27] MEDS: KEFLEX PO SCH (21:56)
[2022-04-28] MEDS: ALBUTEROL 0.083% NEB NEB SCH (04:55)
[2022-04-28 05:28] LABS: BASOPHILS % (AUTO) 0.2 % (0.0-3.0); EOSINOPHILS # (AUTO) 0.2 K/ul (0.0-0.7); EOSINOPHILS % (AUTO) 1.6 % (0.0-7.0); HEMATOCRIT 32.3 % (37.0-47.0); HEMOGLOBIN 10.2 g/dl (12.0-16.0); IMMATURE GRANULOCYTE # (AUTO) 0.1 (0.0-1.0); IMMATURE GRANULOCYTE % (AUTO) 0.9 % (0.0-5.0); LYMPHOCYTES # (AUTO) 2.3 K/uL (0.60-3.4); MEAN CORPUSCULAR HGB CONC 31.6 (31.8-35.4); MEAN CORPUSCULAR VOLUME 98.2 fl (81.0-99.0); MONOCYTES # (AUTO) 0.7 K/uL (0.4-2.0); MONOCYTES % (AUTO) 6.4 (0-10); NEUTROPHILS # (AUTO) 7.2 K/ul (2.0-6.9); NEUTROPHILS % (AUTO) 68.9 % (42.2-75.2); PLATELET COUNT 178 10^3/uL (140-440); RDW COEFFICIENT OF VARIATION 13.3 % (11.6-14.8); RED BLOOD COUNT 3.29 10^6/ul (4.20-5.40); WHITE BLOOD COUNT 10.49 K/ul (4.6-10.2)
[2022-04-28 05:42] LABS: ALANINE AMINOTRANSFERASE 14.2 U/L (0-35); ALBUMIN 3.29 g/dL (3.5-5.0); ALKALINE PHOSPHATASE 74.6 U/L (53-141); ASPARTATE AMINO TRANSFERASE 21.8 U/L (14-36); BILIRUBIN,TOTAL 0.36 mg/dL (0.2-1.3); BLOOD UREA NITROGEN 15.5 mg/dL (7-17); CALCIUM 8.81 mg/dL (8.4-10.2); CARBON DIOXIDE 33.8 mmol/L (22-30.0); CHLORIDE 103.4 mmol/L (98-107); CREATININE 0.86 mg/dL (0.60-1.30); GLUCOSE 88.3 mg/dL (74-106); POTASSIUM 4.36 mmol/L (3.5-5.1); SODIUM 137.7 mmol/L (134.5-145); TOTAL PROTEIN 5.89 g/dL (6.3-8.2)
[2022-04-28] MEDS: PROTONIX PO SCH (06:12)
[2022-04-28] MEDS: SYNTHROID PO SCH (06:12)
[2022-04-28] MEDS: LASIX TAB PO SCH (06:13)
[2022-04-28] MEDS: TYLENOL PO SCH ×2 (06:39→11:10)
[2022-04-28] MEDS: NORCO 5-325 PO PRN (07:33)
--- NOTE | 2022-04-28 09:34 | PCM.PROG ---
Attending Provider: ATTENDING PROVIDER: Dr. JACQUIE WRAY This patient is seen with Lia Da Silva, Nurse Practitioner. DATE OF SERVICE: 04/28/22 SUBJECTIVE: This 81 year old /WHITE F was hospitalized 04/23/22. Still complaining of atypical chest pain, more pleuritic in nature. CT showed no acute process. She does have increased nodule will refer to senior accountant if she doesn't already see one. O2 saturation have been good. Vitals stable. Eating well, up and about in her room. She has no increased need for oxygen. We will plan on discharged home. REVIEW OF SYSTEMS: CONSTITUTIONAL: No night sweats. Fatigue. No fever or chills. HEENT: Eyes: No visual changes. No eye pain. No eye discharge. ENT: No runny nose. No epistaxis. No sinus pain. No odynophagia. No congestion. RESPIRATORY: Cough, no congestion. No hemoptysis. Shortness of breath. CARDIOVASCULAR: No angina symptoms. No CHF symptoms. No atypical chest pain for CAD. No palpitations. No orthopnea.. GASTROINTESTINAL: No abdominal pain. No nausea or vomiting. No diarrhea or constipation. No hematemesis. No hematochezia. GENITOURINARY: No urgency. No frequency. No dysuria. No hematuria. No obstructive symptoms. No discharge. No pain. No significant abnormal bleeding. MUSCULOSKELETAL: No musculoskeletal pain; no joint swelling. Generalized pain. NEUROLOGICAL: Awake, alert, oriented to time, place and person. No headache. No neck pain. No syncope. No seizures. No dizziness. PSYCHIATRIC: Not anxious. No depression. No suicidal thoughts. No homicidal thoughts. SKIN: No rash. No lesions. No wounds. ENDOCRINE: No unexplained weight loss. No weight gain. HEMATOLOGIC/LYMPHATIC: No anemia. No purpura. No petechiae. No prolonged or excessive bleeding. No palpable lymph nodes. PHYSICAL EXAMINATION: GENERAL: The patient is awake, alert and oriented, lying in bed in no distress. VITAL SIGNS: Temperature 98.6 F, Pulse 92, Respiratory Rate 18, BP 118/77, Pulse Ox 99% HEENT: Head normocephalic, atraumatic. Eyes: Extraocular muscles are intact. Pupils are equal, round and reactive to light and accommodation. Ears: No lesions. Nose appeared normal. Throat: No exudate or erythema. NECK: Supple. No JVD, no carotid bruit. No lymphadenopathy or thyromegaly. LUNGS: Diminished breath sounds. Clear to auscultation. Percussion note normal. Chest symmetrical. HEART: S1, S2, no S3. No murmurs. No cyanosis or clubbing. No ascites. Pulses: Dorsalis pedis and posterior tibial pulses +1 to +2 both sides. ABDOMEN: Soft. Non-tender. Bowel sounds active. No CVA tenderness. No mass felt. EXTREMITIES: No edema. Full range of motion of all extremities, equal. NEUROLOGIC: No focal deficit. Cranial nerves II through XII are grossly intact. No headache. No double vision. SKIN: Not dry. Intact. Turgor-normal. LYMPHATIC: No palpable lymph nodes/no lymphedema. MUSCULOSKELETAL: Normal joints with no swelling. Muscle tone is normal. LAB REVIEW: 04/28/22 04:50 04/28/22 04:50 04/28/22 04:50: Sodium 137.7, Potassium 4.36, Chloride 103.4, Carbon Dioxide 33.8 H, Anion Gap 4.86, BUN 15.5, Creatinine 0.86, Estimated GFR (MDRD) 63.00, BUN/Creatinine Ratio 18.02, Glucose 88.3, Calcium 8.81, Total Bilirubin 0.36, AST 21.8, ALT 14.2, Alkaline Phosphatase 74.6, Total Protein 5.89 L, Albumin 3.29 L, Globulin 2.60, Albumin/Globulin Ratio 1.26 04/28/22 04:50: WBC 10.49 H, RBC 3.29 L, Hgb 10.2 L, Hct 32.3 L, MCV 98.2, MCH 31.0, MCHC 31.6 L, RDW Coeff of Karina 13.3, Plt Count 178, Immature Gran % (Auto) 0.9, Neut % (Auto) 68.9, Lymph % (Auto) 22.0, [place] % (Auto) 6.4, Eos % (Auto) 1.6, Baso % (Auto) 0.2, Neut # (Auto) 7.2 H, Lymph # (Auto) 2.3, [place] # (Auto) 0.7, Eos # (Auto) 0.2, Baso # (Auto) 0.0, Immature Gran # (Auto) 0.1 ASSESSMENT: Please see below. 1. Chest wall pain 2. Endstage COPD 3. Chronic respiratory failure 4. Increase in left lung nodule 5. Obesity PLAN: 1. Discharge home 2. Prednisone 20mg BID for 3 days then daily for 4 days 3. Keflex 500mg BID for 5 days 4. Ultram 50mg BID PRN 5. Refer to senior accountant if not already established due to increase in pulmonary nodule. 6. Followup next week in the office. Plan and coordination of the patient's care discussed in the presence of Financial Health Counselor and nurse. SCRIBED BY: Dimas GR scribed while in presence of service performed by Dr. Wray/Lia Da Silva APRN on 04/28/22 ([id number])
[2022-04-28] MEDS: ZOLOFT PO SCH (10:06)
[2022-04-28] MEDS: LOPRESSOR PO SCH (10:06)
[2022-04-28] MEDS: LIPITOR PO SCH (10:06)
[2022-04-28] MEDS: K-DUR PO SCH (10:06)
[2022-04-28] MEDS: ASPIRIN EC PO SCH (10:06)
[2022-04-28] MEDS: MUCINEX PO SCH (10:07)
[2022-04-28] MEDS: ATIVAN PO SCH (10:07)
[2022-04-28] MEDS: KEFLEX PO SCH (10:07)
[2022-04-28] MEDS: DECADRON IM SCH (10:07)
[2022-04-28] MEDS ORDERED: ULTRAM PO ONE (10:14)
[2022-04-28] MEDS: SYMBICORT 160-4.5 MCG INHALER IH SCH (11:02)
[2022-04-28 11:27] VITALS: BP 132/78; TEMP 98
--- NOTE | 2022-04-29 12:54 | DS ---
DATE OF SERVICE: 04/28/22 FINAL DIAGNOSIS: 1. Acute COPD exacerbation 2. Atypical chest pain, pleuritic in nature 3. Chronic respiratory failure 4. Polyarthritis 5. Obesity 6. Hypertension 7. Increasing left lobe nodule. DISCHARGE INSTRUCTIONS: Discharge home today. Continue all other home medications as prior admission. Followup with Dr. Ingram May 05 at 9am. Followup with Dr. Mejía's office May 07 at 1:45pm. [facility] was contacted per request. MEDICATIONS AT DISCHARGE: Lorazepam 1mg PO BID Lipitor 20ng PO daily Levothyroxine 75mcg PO QDAC Ropinirole 1mg PO BEDTIME Tamoxifen 20mg PO BEDTIME Symbicort two puff inhalation BID Proventil two puff inhalation QID Furosemide 20mg PO QDAC Mucinex 600mg PO BID Metoprolol Tartrate 25mg PO daily Sertraline 50mg PO daily Aspirin 81mg PO daily Pantoprazole 40mg PO daily NEW PRESCRIPTIONS: Cephalexin 500mg PO BID Prednisone 20mg PO BID Tramadol 50mg PO BID PRN DISCONTINUED MEDICATIONS: Tramadol 50mg PO daily Azithromycin 250mg PO daily Prednisone 10mg daily DIET INSTRUCTIONS: Regular ACTIVITY: Resume activity as tolerated HOSPITAL COURSE: 81 year old white female who presented to the emergency room complaining of worsening shortness of breath. She is on 3 liters of oxygen at home and has a history of pulmonary fibrosis. She was taking a Z-pack and Medrol Dosepak at home. In the emergency room Potassium slightly low at 3.4, hgb was 10.4. Flu was negative. RSV was negative. COVID was negative. ABG on 3 liters at nasal canula showed an O2 saturation of 98%, pH 7.46, pCO2 50, pO2 104. She was admitted and placed on Rocephin 1 gram IV daily along with Solu-Medrol 125mg IV Q 8 hours. Vital signs were stable. She was turned down to 2.5 liters via nasal canula. Chest x-ray did not show any acute process. Over the course of the next several days she did complain chest pain across the top portion of her chest worse with coughing and deep breathing. The steroids did help with his. She was also given Toradol 15mg IV Q 8 hours along with [place] 5mg BID PRN to take in between. She stated that neither one of these helped her pain although she has been up and about walking around. Blood pressure has been stable. She has been sating 98 to 100%, eating well, Afebrile. CT of the chest was done yesterday due to complaints of persistent pain. Did not show any cause of the pain, similar appearance for fibrosis did show a newer increase 6mm nodule density in the left lung recommended a CT chest followup in three months which we will do. I do believe she also sees Dr. Ingram or Dr. Flores at [facility] and we will fax these images over to them. Today she reports the pain is better. She has been up and about walking around. She has been on PO Keflex and PO Prednisone now for 24 hours. We will send her home Keflex 500mg BID for the next 5 days along with Prednisone 20mg daily for the next 5 days and we will again forward this information about the lung nodule to pulmonology. Labs are stable. She is eating well. She already has oxygen at home. Pain has been controlled. We will discharge in stable condition and followup in the office next week. TIME SPENT: More than 60 minutes. DHAVAL
--- NOTE | 2022-04-29 13:25 | PN ---
DATE OF SERVICE: 04/27/22 SUBJECTIVE: The patient was seen and examined with the Nurse Practitioner. The patient's condition is stable. She has pleuritic type of pain. The patient is very anxious. Also wants to get the sympathy. She says that she doesn't have pain yet. She is waiting for the pain to come back. TIME SPENT: More than 30 minutes. Plan and coordination of the patient's care discussed in the presence of nurse. DHAVAL
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
--- NOTE | 2022-04-30 13:43 | PN ---
DATE OF SERVICE: 04/24/22 SUBJECTIVE: 81 year old white female hospitalized with chest pain which is more like pleuritic. The patient's pain has lessened. She is being given Decadron and Toradol IM. REVIEW OF SYSTEMS: CONSTITUTIONAL: No night sweats. No fatigue, malaise, lethargy. No fever or chills. HEENT: Eyes: No visual changes. No eye pain. No eye discharge. ENT: No runny nose. No epistaxis. No sinus pain. No sore throat. No odynophagia. No congestion. RESPIRATORY: No cough, no congestion. No hemoptysis. No shortness of breath. CARDIOVASCULAR: No angina symptoms. No CHF symptoms. Chest tightness which comes and goes mostly with deep inspiration and moving her shoulders. No palpitations. No PND. No orthopnea. GASTROINTESTINAL: No abdominal pain. No nausea or vomiting. No diarrhea or constipation. No hematemesis. No hematochezia. GENITOURINARY: No urgency. No frequency. No dysuria. No hematuria. No obstructive symptoms. No discharge. No pain. No significant abnormal bleeding. MUSCULOSKELETAL: No musculoskeletal pain; no joint swelling. NEUROLOGICAL: No headache. No neck pain. No syncope. No seizures. No dizziness. PSYCHIATRIC: Not anxious. No depression. No suicidal thoughts. No homicidal thoughts. SKIN: No rash. No lesions. No wounds. ENDOCRINE: No unexplained weight loss. No weight gain. HEMATOLOGIC/LYMPHATIC: No anemia. No purpura. No petechiae. No prolonged or excessive bleeding. No palpable lymph nodes. PHYSICAL EXAMINATION: VITAL SIGNS: Temperature 98.3, pulse 86, respiratory rate 18, blood pressure 133/72 and pulse ox 99%. HEENT: Head normocephalic, atraumatic. Eyes: Extraocular muscles are intact. Pupils are equal, round and reactive to light and accommodation. Ears: No lesions. Nose appeared normal. Throat: No exudate or erythema. NECK: Supple. No JVD, no carotid bruit. No lymphadenopathy or thyromegaly. LUNGS: Decreased breath sounds. Clear to auscultation. Percussion note normal. Chest symmetrical. HEART: S1, S2, no S3. No murmurs. No cyanosis or clubbing. No ascites. Pulses: Dorsalis pedis and posterior tibial pulses +1 to +2 bilaterally. ABDOMEN: Soft. Nontender. Bowel sounds active. No CVA tenderness. No mass felt. EXTREMITIES: No edema. Full range of motion of all extremities, equal. NEUROLOGIC: No focal deficit. Cranial nerves II through XII are grossly intact. No headache. No double vision. SKIN: Not dry. Intact. Turgor - normal. LYMPHATIC: No palpable lymph nodes/no lymphedema. MUSCULOSKELETAL: Normal joints with no swelling. Muscle tone is normal. LABS: hgb 10, hct 32, WBC 9,700 normal differential, creatinine 0.5, BUN 15, potassium 3.7. ASSESSMENT: 1. Chest pain which is more like a pleuritic type of pain 2. Chronic lung disease 3. Anxiety 4. Early dementia PLAN: 1. Toradol and Decadron 2. Continue the same medications 3. Symptomatic treatment with reassurance TIME SPENT: More than 30 minutes. Plan and coordination of the patient's care discussed in the presence of nurse. DHAVAL
--- NOTE | 2022-05-01 13:54 | PN ---
DATE OF SERVICE: 04/28/22 SUBJECTIVE: The patient was seen and examined with the Nurse Practitioner. The patient's condition is stable. Cardiovascular and respiratory status is stable. The patient still has chest pain off and on. Her chest tightness unrelated to exertion. No change in the ST-T waves noted on telemetry strips. Cardiac markers were negative. Pain is atypical for coronary insufficiency more like pleuritic pain competent of costal chondritis. Plan is discharge the patient home with practically the same medications as before. She is going to be on antibiotics and is going to be seen as an outpatient. TIME SPENT: More than 30 minutes. Plan and coordination of the patient's care discussed in the presence of nurse. DHAVAL
--- NOTE | 2022-05-01 13:55 | PN ---
ADMISSION DAY: Level 5 REST OF THEM: Intermediate FINAL DAY: D as in discharge. MTDD
== END 2022-04-28 14:33 | disposition home or self-care (01) | DRG 191 ==
LOC: ED 10:36 → MEDSURG A 13:15
PROVIDERS: ADMIT Internal Medicine; ATTEND Internal Medicine
DX: Z72.3 Lack of physical exercise; R91.8 Other nonspecific abnormal finding of lung field; Z20.822 Contact with and (suspected) exposure to COVID-19; Z79.899 Other long term (current) drug therapy; J96.10 Chronic respiratory failure, unspecified whether with hypoxia or hypercapnia; I10 Essential (primary) hypertension; F03.90 Unspecified dementia, unspecified severity, without behavioral disturbance, psychotic disturbance, mood disturbance, and anxiety; Z87.09 Personal history of other diseases of the respiratory system; Z79.82 Long term (current) use of aspirin; D64.9 Anemia, unspecified; Z51.81 Encounter for therapeutic drug level monitoring; R07.9 Chest pain, unspecified; E78.5 Hyperlipidemia, unspecified; F41.9 Anxiety disorder, unspecified; J84.10 Pulmonary fibrosis, unspecified; Z68.28 Body mass index [BMI] 28.0-28.9, adult; E66.9 Obesity, unspecified; Z99.81 Dependence on supplemental oxygen; J44.1 Chronic obstructive pulmonary disease with (acute) exacerbation; J44.9 Chronic obstructive pulmonary disease, unspecified; R07.81 Pleurodynia; M13.0 Polyarthritis, unspecified; J45.909 Unspecified asthma, uncomplicated